=== PATIENT | male | born 1990 | race Caucasian/White ===

== ENCOUNTER 2024-03-16 17:03 | Inpatient (IN) ==
[2024-03-16] MEDS: MoRPHine SULFATE 4 MG/ML 1 ML CARP\\VIAL IV STA (17:40)
--- NOTE | 2024-03-16 17:47 | Emergency Department Note ---
History of Present Illness General Chief complaint: Back Injury/Pain Stated complaint: BACK SPASMS Time Seen by Provider: 03/16/24 17:19 History of Present Illness Maximum Pain Intensity: 9 This is a 33-year-old male that presents to the emergency department via private vehicle with complaints of "back pain". The patient notes that he was diagnosed with degenerative disc disease about a year ago. As of this year, is now following with [facility] receiving steroid injections in the spine. First of which was in October and the last of which was late this past month on March 07. Patient states that the first round in October seem to help the pain quite well however as of recent the later injections did not help. He notes ongoing and rather debilitating pain now. He notes trouble getting in and out of vehicles and certain position changes. He notes that last evening he did have a sensation of warm/hot followed by sweaty and then felt ill and vomited. This is unusual and he notes no history of similar. The patient did have ibuprofen prior to arrival. No lower extremity weakness, bowel or bladder incontinence, numbness or tingling in genital region. Home Medications Medication Instructions Recorded Confirmed Type acetaminophen 500 mg tablet 1,000 mg PO Q6H PRN Pain 03/16/24 03/16/24 History (Acetaminophen Extra Strength) celecoxib 100 mg capsule 100 mg PO BID PRN Pain 03/16/24 03/16/24 History Allergies Allergy/AdvReac Type Severity Reaction Status Date / Time Sulfa (Sulfonamide Allergy Intermediate Itching Verified 03/16/24 19:11 Antibiotics) baclofen AdvReac Severe Anxiety Verified 03/16/24 19:11 diclofenac AdvReac Severe Anxiety Verified 03/16/24 19:11 Past Med/Surg History Problem List (Updated 03/17/24 @ 01:06 by Jayy Currie PA-C) Abnormal MRI, lumbar spine (Acute) Leukocytosis (Acute) Low back pain (Acute) Severe low back pain Social History Smoking Status: Former smoker Smoking End Date: 2010; Hx Alcohol Use: No Hx Substance Use: Yes (marijuana for >15 years, has medical card per pt) Preferred Language: Ethiopian Communication Ability: Effective Service Provider Required: No Beliefs That Will Affect Care: None Current Living Situation: Spouse Other Information That Helps Us Care for You: No Feels Safe at Home: Yes Safety Concerns: Feels Safe At This Time Assistive Devices: Cane Review of Systems A total of 10 systems reviewed and were otherwise negative Physical Exam Vital Signs Vital Signs - 24 hr 03/16/24 17:12 03/16/24 20:45 03/16/24 21:48 Temperature 36.9 C Temperature Source Temporal Artery Scan Pulse Rate 90 Pulse Rate [Radial] 70 Respiratory Rate 18 16 Respiratory Effort / Characteristics Non-Labored Spontaneous Respiratory Depth Normal Blood Pressure 134/80 Blood Pressure [Left Arm] 123/82 Blood Pressure Mean 98 Blood Pressure Mean [Left Arm] 95 Blood Pressure Position Sitting Pulse Oximetry 95 97 97 Oxygen Delivery Method Room Air Room Air Sepsis Recent Fever Within 48 Hours No Sepsis New/Unexplained Change in Mental Status N/A Sepsis Action Taken by Nursing No Action Required VITAL SIGNS - Vital signs and nursing notes were reviewed. Stable and afebrile. GENERAL -33-year-old male appearing his stated age who is in no acute distress. Communicates well with provider and answers questions appropriately. SKIN - Without rashes. Skin overlying the back is unremarkable. No erythema or edema. HEAD - NC/AT. EYES - PERRL with EOMI bilaterally. Sclera anicteric. EARS - No deformities of external structures noted on gross examination bilaterally. NOSE - Midline and without cyanosis. No epistaxis or purulent drainage noted. MOUTH/OROPHARYNX - Without perioral cyanosis. NECK - Neck with FROM. No nuchal rigidity. LUNGS - CTA CARDIAC - RRR ABDOMEN - Abdominal contour normal without pulsations or visible masses. BS normoactive all four quadrants. No tenderness, palpable masses, hepatosplenomegaly, or ascites noted. EXTREMITIES - No clubbing or peripheral cyanosis. +5/5 strength noted in UE/LE bilaterally. NEUROLOGIC - Cranial nerves II through XII grossly intact. Patellar reflexes within normal limits bilaterally. PSYCH -alert, oriented and pleasant on exam. Course Administered Medications Discontinued Medications Gadobutrol (Gadobutrol 65ml Vial) 7.9 ml IV ONCE ONE Stop: 03/16/24 18:41 Last Admin: 03/16/24 18:41 Dose: 7.9 ml Documented By: СЕРГЕЙ Hydromorphone HCl (Hydromorphone Inj 0.5 Mg/0.5 Ml Syr) 0.5 mg IV NOW STA Stop: 03/16/24 22:47 Last Admin: 03/16/24 22:53 Dose: 0.5 mg Documented By: SHONA Vancomycin HCl 1,500 mg/ (Sodium Chloride) 530 mls @ 200 mls/hr IV NOW ONE Stop: 03/16/24 23:37 Last Admin: 03/16/24 22:47 Dose: 200 mls/hr Documented By: SHONA Ceftriaxone Sodium (Rocephin) 2,000 mg in 50 mls @ 100 mls/hr IV NOW STA Stop: 03/16/24 21:28 Last Infusion: 03/16/24 22:48 Dose: Infused Documented By: Admin: 03/16/24 22:27 Dose: 100 mls/hr Documented By: SHONA Sodium Chloride (Nss) 1,000 mls @ 999 mls/hr IV .Q1H1M ONE Stop: 03/16/24 22:05 Last Infusion: 03/17/24 00:00 Dose: Infused Documented By: Admin: 03/16/24 22:27 Dose: 999 mls/hr Documented By: SHONA Lidocaine (Lidocaine 5% 1 Patch) 1 patch TD NOW STA Stop: 03/16/24 19:40 Last Admin: 03/16/24 19:46 Dose: 1 patch Documented By: SHONA Morphine Sulfate (Morphine Sulfate 4 Mg/Ml 1 Ml Carp\\Vial) 4 mg IV NOW STA Stop: 03/16/24 17:34 Last Admin: 03/16/24 17:40 Dose: 4 mg Documented By: LAMONT Morphine Sulfate (Morphine Sulfate 2 Mg/Ml Carp) 2 mg IV NOW STA Stop: 03/16/24 19:40 Last Admin: 03/16/24 19:46 Dose: 2 mg Documented By: SHONA Medical Decision Making Laboratory Data 03/16/24 17:39 03/16/24 17:39 Lab Results 03/16/24 03/16/24 03/16/24 Range/Units 17:39 19:39 20:25 WBC 11.51 H (4.8-10.8) K/ul RBC 4.71 (4.70-6.10) M/uL Hgb 14.2 (14.0-18.0) g/dl Hct 42.5 (42.0-52.0) % MCV 90.2 (80.0-100.0) fL MCH 30.1 (25.0-34.0) pg MCHC 33.4 (32.0-36.0) g/dL RDW Std Deviation 40.8 (36.4-46.3) fL RDW Coeff of Roberto 12.3 (11.5-14.5) % Plt Count 212 (130-400) K/uL MPV 10.4 (9.4-12.4) fL Immature Gran % (Auto) 0.3 % Neut % (Auto) 76.7 % Lymph % (Auto) 16.2 % [place] % (Auto) 6.1 % Eos % (Auto) 0.4 % Baso % (Auto) 0.3 % Neut # (Auto) 8.81 H (1.40-6.50) K/uL Lymph # (Auto) 1.87 (1.20-3.40) K/uL [place] # (Auto) 0.70 H (0.11-0.59) K/uL Eos # (Auto) 0.05 (0.00-0.50) K/uL Baso # (Auto) 0.04 (0.00-0.20) K/uL Immature Gran # (Auto) 0.04 (0.01-0.20) K/uL ESR 6 (0-15) mm/hr Sodium 136 (136-145) mmol/L Potassium 3.9 (3.5-5.1) mmol/L Chloride 103 (98-107) mmol/L Carbon Dioxide 26 (21-32) mmol/L Anion Gap 7 (3-11) BUN 15 (6-23) mg/dl Creatinine 0.88 (0.6-1.4) mg/dl Est Cr Clr Drug Dosing 129.8 ml/min eGFR 115.72 BUN/Creatinine Ratio 17.0 (10-20) Glucose 95 (70-99(Fasting)) mg/dl Lactate (0.4-2.0) mmol/L Calcium 9.6 (8.6-10.3) mg/dl Total Bilirubin 0.4 (0.2-1.0) mg/dl AST 18 (13-39) U/L ALT 22 (7-52) U/L Alkaline Phosphatase 53 (34-104) U/L C-Reactive Protein < 0.50 (0-0.5) mg/dl Total Protein 7.5 (6.0-8.3) gm/dl Albumin 4.8 (3.4-5.0) gm/dl Globulin 2.7 (2.5-4.0) gm/dl Albumin/Globulin Ratio 1.8 (0.9-2) Procalcitonin < 0.02 (0-0.5) ng/ml Urine Color Yellow Urine Appearance Clear (Clear) Urine pH 6.5 (4.5-7.5) Ur Specific Brenton 1.039 H (1.000-1.030) Urine Protein Negative (Negative) Urine Glucose (UA) Negative (Negative) Urine Ketones Negative (Negative) Urine Blood Negative (Negative) Urine Nitrite Negative (Negative) Urine Bilirubin Negative (Negative) Urine Urobilinogen Negative (Negative) Ur Leukocyte Esterase Negative (Negative) 03/16/24 Range/Units 21:35 WBC (4.8-10.8) K/ul RBC (4.70-6.10) M/uL Hgb (14.0-18.0) g/dl Hct (42.0-52.0) % MCV (80.0-100.0) fL MCH (25.0-34.0) pg MCHC (32.0-36.0) g/dL RDW Std Deviation (36.4-46.3) fL RDW Coeff of Roberto (11.5-14.5) % Plt Count (130-400) K/uL MPV (9.4-12.4) fL Immature Gran % (Auto) % Neut % (Auto) % Lymph % (Auto) % [place] % (Auto) % Eos % (Auto) % Baso % (Auto) % Neut # (Auto) (1.40-6.50) K/uL Lymph # (Auto) (1.20-3.40) K/uL [place] # (Auto) (0.11-0.59) K/uL Eos # (Auto) (0.00-0.50) K/uL Baso # (Auto) (0.00-0.20) K/uL Immature Gran # (Auto) (0.01-0.20) K/uL ESR (0-15) mm/hr Sodium (136-145) mmol/L Potassium (3.5-5.1) mmol/L Chloride (98-107) mmol/L Carbon Dioxide (21-32) mmol/L Anion Gap (3-11) BUN (6-23) mg/dl Creatinine (0.6-1.4) mg/dl Est Cr Clr Drug Dosing ml/min eGFR BUN/Creatinine Ratio (10-20) Glucose (70-99(Fasting)) mg/dl Lactate 0.6 (0.4-2.0) mmol/L Calcium (8.6-10.3) mg/dl Total Bilirubin (0.2-1.0) mg/dl AST (13-39) U/L ALT (7-52) U/L Alkaline Phosphatase (34-104) U/L C-Reactive Protein (0-0.5) mg/dl Total Protein (6.0-8.3) gm/dl Albumin (3.4-5.0) gm/dl Globulin (2.5-4.0) gm/dl Albumin/Globulin Ratio (0.9-2) Procalcitonin (0-0.5) ng/ml Urine Color Urine Appearance (Clear) Urine pH (4.5-7.5) Ur Specific Brenton (1.000-1.030) Urine Protein (Negative) Urine Glucose (UA) (Negative) Urine Ketones (Negative) Urine Blood (Negative) Urine Nitrite (Negative) Urine Bilirubin (Negative) Urine Urobilinogen (Negative) Ur Leukocyte Esterase (Negative) Imaging Data Radiologist's Impression: Lumbar Spine MRI 03/16/24 17:33 EXAM: MR lumbar spine wo/w con CLINICAL HISTORY: steroid injection 03/07 pain worse afterwards 7.9 ml Gadavist TECHNIQUE: Different pulse sequences were performed in different planes for the lumbar spine without and with contrast. Images were sent through PACs for diagnostic interpretation.7.9 mL of Gadavist was injected intravenously without complications. COMPARISON: 12/24/[address] was reviewed FINDINGS: Preserved physiological lumbar lordosis. The scanned intervertebral discs show variable degrees of degeneration denoted by low signal intensity on T2 WI with a relative reduction of their heights. Marginal osteophytes are seen.Multiple radial, concentric, and transverse annular fissures are seen. Multiple Schmorl's nodes are seen at the vertebral end plates. Associating disc edema and wide zones of bone marrow edema at the L1 through L5 vertebrae with appreciable enhancement after Gd-DTPA injection. Findings suggest aseptic/septic spondylodiscitis. Detailed clinical, laboratory correlation and follow-up are recommended as appropriate. Maintained vertebral heights with intact vertebral bodies and neural arches. Level by Level analysis: T12-L1: There is no focal disc pathology, central canal stenosis, or neural foraminal stenosis. L1-L2: There is no focal disc pathology, central canal stenosis, or neural foraminal stenosis. L2-L3: There are 2.3 mm subarticular protrusions attenuating the subarticular recesses with impingement of the emerging L3 nerve roots. L3-L4: There are 2.5 mm subarticular protrusions attenuating the subarticular recesses with impingement of the emerging L4 nerve roots. Buckled ligamenta flava augment effects. L4-L5: There is a 2.4 mm annular bulge and 4.4 mm central herniation indenting the thecal sac, compromising the subarticular recesses and neural foramina with impingement of the emerging nerve roots. Buckled ligamenta flava and arthropathic facet joints augment effects. L5-S1: There is a 2.5 mm annular bulge and 4.2 mm central herniation indenting the thecal sac, compromising the subarticular recesses With mild bilateral neural foraminal stenosis with impingement of the emerging nerve roots. Buckled ligamenta flava and arthropathic facet joints augment effects. The lower dorsal spinal cord, conus medullaris, and cauda equina nerve roots are unremarkable. Paravertebral soft tissue is unremarkable. No developmental canal stenosis. IMPRESSION: 1. Spondylodegenerative lumbar disc disease. 2. Multiple Schmorl's nodes. 3. Modic I and II marrow changes are seen, with no other remarkable marrow changes. 4. Associating disc edema and wide zones of bone marrow edema at the L1 through L5 vertebrae with appreciable enhancement after Gd-DTPA injection. Findings suggest aseptic/septic spondylodiscitis. Detailed clinical, laboratory correlation and follow-up are recommended as appropriate. 5. L2-L3: There are 2.3 mm subarticular protrusions. 6. L3-L4: There are 2.5 mm subarticular protrusions. 7. L4-L5: There is a 2.4 mm annular bulge and 4.4 mm central herniation. 8. L5-S1: There is a 2.5 mm annular bulge and 4.2 mm central herniation. 9. Multilevel lumbar disc pathologies at the L2-L3, L3-L4, L4-L5 and L5-S1 levels with effects exerted upon the central spinal canal, subarticular recesses, and neural foramina with impingement of the emerging nerve roots. Buckled ligamenta flava and arthropathic facet joints augment effects. Electronically signed by Esmer Mari 03-16-2024 8:01 PM MDM Narrative Patient was seen and evaluated as above in room D05. Review was performed of triage nursing notes and vital signs. I did review pertinent previous visits and patient history. After obtaining a thorough history and physical examination the above work up was performed. Patient presents to us today for evaluation of low back pain. This has been ongoing. The patient did also experience yesterday sensation of fever/hot, was sweaty, then felt ill and vomited. He notes this is unusual. Options of care were discussed with the patient. IV access with established labs were drawn. There is leukocytosis 11.51. No anemia. Metabolic panel without emergent finding. Urinalysis does not suggest infection. MRI of the L- spine with and without contrast was performed to further evaluate the patient's low back pain now with infectious symptoms to include the hot flashes, sweatiness and vomiting in the setting of recent spinal injection. MRI is as above. I reviewed the findings with the patient and he was provided a copy of the report. #4 in the impression does note associated disc edema and wide zones of bone marrow edema at the L1-L5 vertebrae with appreciable enhancement after GDDTPA injection. Per the radiologist findings suggest a septic/septic spondylodiscitis. The radiologist does note detailed clinical, laboratory correlation and follow-up are recommended as appropriate. I discussed this finding and presentation with the on-call realty specialist, Dr. Baron. Recommendation was adding on inflammatory markers, blood cultures, IV antibiotics that are broad-spectrum and admission to the hospital. He will evaluate the patient. Laboratory studies were further added. Blood cultures pending at this time. Broad-spectrum IV antibiotics ordered. I discussed the case with the hospitalist service. Please refer to further documentation regarding his stay. GCS: 15 In the evaluation and treatment of this patient the following differential diagnoses were entertained: Fracture, dislocation, subluxation, contusion, discitis, osteomyelitis, epidural abscess, among others Impression & Plan Low back pain, Leukocytosis, Abnormal MRI, lumbar spine Discharge Plan Visit Data Chief Complaint: Back Injury/Pain Stated Complaint: BACK SPASMS ED Provider: Pb Sotelo ED Midlevel Provider: Bamat,Jayy W Discharge Problem: Low back pain, Leukocytosis, Abnormal MRI, lumbar spine Patient Disposition: Admitted As Inpatient Condition: Good Discharge Instructions Interventions: ED Discharge Assessment Last Done: 03/16/24 23:44
[2024-03-16 18:11] LABS: Basophils # (auto) 0.04 K/uL (0.00-0.20); Basophils % (auto) 0.3 %; Eosinophils # (auto) 0.05 K/uL (0.00-0.50); Eosinophils % (auto) 0.4 %; Hematocrit (blood only) 42.5 % (42.0-52.0); Hemoglobin 14.2 g/dl (14.0-18.0); Immature Granulocytes # (auto) 0.04 K/uL (0.01-0.20); Immature Granulocytes % (auto) 0.3 %; Lymphocytes # (auto) 1.87 K/uL (1.20-3.40); Lymphocytes % (auto) 16.2 %; Mean Corpuscular Hemoglobin 30.1 pg (25.0-34.0); Mean Corpuscular Hgb Conc 33.4 g/dL (32.0-36.0); Mean Corpuscular Volume 90.2 fL (80.0-100.0); Mean Platelet Volume 10.4 fL (9.4-12.4); Monocytes % (auto) 6.1 %; Neutrophils # (auto) 8.81 K/uL (1.40-6.50); Neutrophils % (auto) 76.7 %; Platelet Count 212 K/uL (130-400); RDW Coefficient of Variation 12.3 % (11.5-14.5); RDW Standard Deviation 40.8 fL (36.4-46.3); Red Blood Count 4.71 M/uL (4.70-6.10); White Blood Count 11.51 K/ul (4.8-10.8)
[2024-03-16 18:13] LABS: Albumin Level 4.8 gm/dl (3.4-5.0); Anion Gap 7 (3-11); Bilirubin,Total 0.4 mg/dl (0.2-1.0); Calcium 9.6 mg/dl (8.6-10.3); Carbon Dioxide 26 mmol/L (21-32); Chloride 103 mmol/L (98-107); Potassium 3.9 mmol/L (3.5-5.1); Sodium 136 mmol/L (136-145)
[2024-03-16 18:19] LABS: Alanine Aminotransferase 22 U/L (7-52); Albumin Globulin Ratio 1.8 (0.9-2); Alkaline Phosphatase 53 U/L (34-104); Aspartate Aminotransferase 18 U/L (13-39); Blood Urea Nitrogen 15 mg/dl (6-23); Creatinine Clr Calc Pharmacy 129.8 ml/min; Globulin 2.7 gm/dl (2.5-4.0); Glucose 95 mg/dl (70-99(Fasting)); Total Protein 7.5 gm/dl (6.0-8.3)
[2024-03-16] MEDS: GADOBUTROL 65ML VIAL IV ONE (18:41)
[2024-03-16] MEDS: LIDOCAINE 5% 1 PATCH TD STA (19:46)
[2024-03-16] MEDS: MoRPHine SULFATE 2 MG/ML CARP IV STA (19:46)
--- NOTE | 2024-03-16 20:02 | Magnetic Resonance Report ---
EXAM: MR lumbar spine wo/w con CLINICAL HISTORY: steroid injection 03/07 pain worse afterwards 7.9 ml Gadavist TECHNIQUE: Different pulse sequences were performed in different planes for the lumbar spine without and with contrast. Images were sent through PACs for diagnostic interpretation.7.9 mL of Gadavist was injected intravenously without complications. COMPARISON: 12/24/[address] was reviewed FINDINGS: Preserved physiological lumbar lordosis. The scanned intervertebral discs show variable degrees of degeneration denoted by low signal intensity on T2 WI with a relative reduction of their heights. Marginal osteophytes are seen.Multiple radial, concentric, and transverse annular fissures are seen. Multiple Schmorl's nodes are seen at the vertebral end plates. Associating disc edema and wide zones of bone marrow edema at the L1 through L5 vertebrae with appreciable enhancement after Gd-DTPA injection. Findings suggest aseptic/septic spondylodiscitis. Detailed clinical, laboratory correlation and follow-up are recommended as appropriate. Maintained vertebral heights with intact vertebral bodies and neural arches. Level by Level analysis: T12-L1: There is no focal disc pathology, central canal stenosis, or neural foraminal stenosis. L1-L2: There is no focal disc pathology, central canal stenosis, or neural foraminal stenosis. L2-L3: There are 2.3 mm subarticular protrusions attenuating the subarticular recesses with impingement of the emerging L3 nerve roots. L3-L4: There are 2.5 mm subarticular protrusions attenuating the subarticular recesses with impingement of the emerging L4 nerve roots. Buckled ligamenta flava augment effects. L4-L5: There is a 2.4 mm annular bulge and 4.4 mm central herniation indenting the thecal sac, compromising the subarticular recesses and neural foramina with impingement of the emerging nerve roots. Buckled ligamenta flava and arthropathic facet joints augment effects. L5-S1: There is a 2.5 mm annular bulge and 4.2 mm central herniation indenting the thecal sac, compromising the subarticular recesses With mild bilateral neural foraminal stenosis with impingement of the emerging nerve roots. Buckled ligamenta flava and arthropathic facet joints augment effects. The lower dorsal spinal cord, conus medullaris, and cauda equina nerve roots are unremarkable. Paravertebral soft tissue is unremarkable. No developmental canal stenosis. IMPRESSION: 1. Spondylodegenerative lumbar disc disease. 2. Multiple Schmorl's nodes. 3. Modic I and II marrow changes are seen, with no other remarkable marrow changes. 4. Associating disc edema and wide zones of bone marrow edema at the L1 through L5 vertebrae with appreciable enhancement after Gd-DTPA injection. Findings suggest aseptic/septic spondylodiscitis. Detailed clinical, laboratory correlation and follow-up are recommended as appropriate. 5. L2-L3: There are 2.3 mm subarticular protrusions. 6. L3-L4: There are 2.5 mm subarticular protrusions. 7. L4-L5: There is a 2.4 mm annular bulge and 4.4 mm central herniation. 8. L5-S1: There is a 2.5 mm annular bulge and 4.2 mm central herniation. 9. Multilevel lumbar disc pathologies at the L2-L3, L3-L4, L4-L5 and L5-S1 levels with effects exerted upon the central spinal canal, subarticular recesses, and neural foramina with impingement of the emerging nerve roots. Buckled ligamenta flava and arthropathic facet joints augment effects. Electronically signed by Esmer Mari 03-16-2024 8:01 PM
[2024-03-16 20:53] LABS: Appearance Urine Clear (Clear); Bilirubin Urine Negative (Negative); Blood Urine Negative (Negative); Color Urine Yellow; Glucose Urine UA Negative (Negative); Ketones Urine Negative (Negative); Leukocyte Esterase Urine Negative (Negative); Nitrite Urine Negative (Negative); Protein Urine Negative (Negative); Specific Gravity Urine 1.039 (1.000-1.030); Urobilinogen Urine Negative (Negative); pH Urine 6.5 (4.5-7.5)
[2024-03-16] MEDS ORDERED: VANCOMYCIN CONSULT ACTIVE PRN (20:59)
[2024-03-16] MEDS: SODIUM CHLORIDE 0.9% 1,000 ML IV ONE (22:27)
[2024-03-16] MEDS: cefTRIAXone SODIUM 2,000 MG/50 ML BAG IV STA (22:27)
[2024-03-16 22:33] LABS: C Reactive Protein < 0.50 mg/dl (0-0.5)
--- NOTE | 2024-03-16 22:46 | History & Physical Report ---
Date of Service March 16, 2024 Assessment & Plan (1) Severe low back pain: Plan: 33-year-old male with past medical history significant for chronic allergic rhinitis, plantar wart, degenerative disc disease, chronic back pain, general anxiety disorder, dermoid cyst, presents with severe back pain. Patient states having ongoing back pain for about a year. In October he had a steroid shot and it did seem to help. In January again he started to have low back pain and he had another steroid shot on March 01. But this time it did not help much. He is again having a lot of back pain. Not able to ambulate because of severe pain. Denies any bowel or bladder incontinence. Denies any numbness or weakness in the legs. Last night he felt hot and had episode of vomiting. After vomiting he felt better. Denies any headache. No dizziness. Currently no runny nose or sore throat. No cough. No chest pain or shortness of. Appetite is okay. No abdominal pain. Normal bowel and bladder movements. Hemodynamics are okay. 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 for further recommendations DVT prophylaxis SCDs for now Disposition Medical floor Full code History of Present Illness Chief Complaint: Severe back pain Primary Care Provider: Jose Lockett MD 33-year-old male with past medical history significant for chronic allergic rhinitis, plantar wart, degenerative disc disease, chronic back pain, general anxiety disorder, dermoid cyst, presents with severe back pain. Patient states having ongoing back pain for about a year. In October he had a steroid shot and it did seem to help. In January again he started to have low back pain and he had another steroid shot on March 01. But this time it did not help much. He is again having a lot of back pain. Not able to ambulate because of severe pain. Denies any bowel or bladder incontinence. Denies any numbness or weakness in the legs. Last night he felt hot and had episode of vomiting. After vomiting he felt better. Denies any headache. No dizziness. Currently no runny nose or sore throat. No cough. No chest pain or shortness of. Appetite is okay. No abdominal pain. Normal bowel and bladder movements. Hemodynamics are okay. Past medical history. As mentioned above Past surgical history. Lumbar spinal injection Family history. Quit smoking 1999. Medical marijuana as per [employer]. Alcohol occasional. Social history. Maternal grandfather had ALS. Paternal grandfather had colon cancer. Paternal grandmother had bipolar disorder. Lung cancer. Father has hypertension. Mother has hypertension. Allergies Allergy/AdvReac Type Severity Reaction Status Date / Time Sulfa (Sulfonamide Allergy Intermediate Itching Verified 03/16/24 19:11 Antibiotics) baclofen AdvReac Severe Anxiety Verified 03/16/24 19:11 diclofenac AdvReac Severe Anxiety Verified 03/16/24 19:11 Home Medications Medication Instructions Recorded Confirmed Type acetaminophen 500 mg tablet 1,000 mg PO Q6H PRN Pain 03/16/24 03/16/24 History (Acetaminophen Extra Strength) celecoxib 100 mg capsule 100 mg PO BID PRN Pain 03/16/24 03/16/24 History Past Med/Surg History Problem List (Updated 03/17/24 @ 01:06 by Jayy Currie PA-C) Abnormal MRI, lumbar spine (Acute) Leukocytosis (Acute) Low back pain (Acute) Severe low back pain Social History Smoking Status: Former smoker Smoking End Date: 2010; Hx Alcohol Use: No Hx Substance Use: Yes (marijuana for >15 years, has medical card per pt) Preferred Language: Jamaican Communication Ability: Effective 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 ENT- oropharynx clear Neck- supple, no JVD. Lungs- clear to auscultation no wheezing or crackles Heart- regular rate and rhythm; no murmur, no gallop. Abdomen- normal bowel sounds, soft, nontender, no distension Extremities- no pretibial edema, no erythema seen Neuro- alert, oriented ; PERRL, no facial palsy; no dysarthria; moves extremities Musculoskeletal right leg SLR test mildly positive Results & Data Results & Data Vital Signs (Past 12 Hours) Vital Signs Temp Pulse Pulse Resp BP BP Pulse Ox 03/16/24 21:48 70 16 123/82 97 03/16/24 20:45 97 03/16/24 17:12 36.9 C 90 18 134/80 95 O2 Del Method 03/16/24 21:48 03/16/24 20:45 Room Air 03/16/24 17:12 Room Air Diagnostic Findings Laboratory Results WBC 11.51 K/ul (4.8-10.8) H 03/16/24 17:39 RBC 4.71 M/uL (4.70-6.10) 03/16/24 17:39 Hgb 14.2 g/dl (14.0-18.0) 03/16/24 17:39 Hct 42.5 % (42.0-52.0) 03/16/24 17:39 MCV 90.2 fL (80.0-100.0) 03/16/24 17:39 MCH 30.1 pg (25.0-34.0) 03/16/24 17:39 MCHC 33.4 g/dL (32.0-36.0) 03/16/24 17:39 RDW Std Deviation 40.8 fL (36.4-46.3) 03/16/24 17:39 RDW Coeff of Roberto 12.3 % (11.5-14.5) 03/16/24 17:39 Plt Count 212 K/uL (130-400) 03/16/24 17:39 MPV 10.4 fL (9.4-12.4) 03/16/24 17:39 Immature Gran % (Auto) 0.3 % 03/16/24 17:39 Neut % (Auto) 76.7 % 03/16/24 17:39 Lymph % (Auto) 16.2 % 03/16/24 17:39 [place] % (Auto) 6.1 % 03/16/24 17:39 Eos % (Auto) 0.4 % 03/16/24 17:39 Baso % (Auto) 0.3 % 03/16/24 17:39 Neut # (Auto) 8.81 K/uL (1.40-6.50) H 03/16/24 17:39 Lymph # (Auto) 1.87 K/uL (1.20-3.40) 03/16/24 17:39 [place] # (Auto) 0.70 K/uL (0.11-0.59) H 03/16/24 17:39 Eos # (Auto) 0.05 K/uL (0.00-0.50) 03/16/24 17:39 Baso # (Auto) 0.04 K/uL (0.00-0.20) 03/16/24 17:39 Immature Gran # (Auto) 0.04 K/uL (0.01-0.20) 03/16/24 17:39 ESR 6 mm/hr (0-15) 03/16/24 17:39 Sodium 136 mmol/L (136-145) 03/16/24 17:39 Potassium 3.9 mmol/L (3.5-5.1) 03/16/24 17:39 Chloride 103 mmol/L (98-107) 03/16/24 17:39 Carbon Dioxide 26 mmol/L (21-32) 03/16/24 17:39 Anion Gap 7 (3-11) 03/16/24 17:39 BUN 15 mg/dl (6-23) 03/16/24 17:39 Creatinine 0.88 mg/dl (0.6-1.4) 03/16/24 17:39 Est Cr Clr Drug Dosing 129.8 ml/min 03/16/24 17:39 eGFR 115.72 03/16/24 17:39 BUN/Creatinine Ratio 17.0 (10-20) 03/16/24 17:39 Glucose 95 mg/dl (70-99(Fasting)) 03/16/24 17:39 Lactate 0.6 mmol/L (0.4-2.0) 03/16/24 21:35 Calcium 9.6 mg/dl (8.6-10.3) 03/16/24 17:39 Total Bilirubin 0.4 mg/dl (0.2-1.0) 03/16/24 17:39 AST 18 U/L (13-39) 03/16/24 17:39 ALT 22 U/L (7-52) 03/16/24 17:39 Alkaline Phosphatase 53 U/L (34-104) 03/16/24 17:39 C-Reactive Protein < 0.50 mg/dl (0-0.5) 03/16/24 17:39 Total Protein 7.5 gm/dl (6.0-8.3) 03/16/24 17:39 Albumin 4.8 gm/dl (3.4-5.0) 03/16/24 17:39 Globulin 2.7 gm/dl (2.5-4.0) 03/16/24 17:39 Albumin/Globulin Ratio 1.8 (0.9-2) 03/16/24 17:39 Procalcitonin < 0.02 ng/ml (0-0.5) 03/16/24 19:39 Urine Color Yellow 03/16/24 20:25 Urine Appearance Clear (Clear) 03/16/24 20:25 Urine pH 6.5 (4.5-7.5) 03/16/24 20:25 Ur Specific [place] 1.039 (1.000-1.030) H 03/16/24 20: Urine Protein Negative (Negative) 03/16/24 20: Urine Glucose (UA) Negative (Negative) 03/16/24 20: Urine Ketones Negative (Negative) 03/16/24 20: Urine Blood Negative (Negative) 03/16/24 20: Urine Nitrite Negative (Negative) 03/16/24 20: Urine Bilirubin Negative (Negative) 03/16/24 20: Urine Urobilinogen Negative (Negative) 03/16/24 20: Ur Leukocyte Esterase Negative (Negative) 03/16/24 20: Impressions Lumbar Spine MRI 03/16/24 17:33 EXAM: MR lumbar spine wo/w con CLINICAL HISTORY: steroid injection 03/07 pain worse afterwards 7.9 ml Gadavist TECHNIQUE: Different pulse sequences were performed in different planes for the lumbar spine without and with contrast. Images were sent through PACs for diagnostic interpretation.7.9 mL of Gadavist was injected intravenously without complications. COMPARISON: 12/24/[address] was reviewed FINDINGS: Preserved physiological lumbar lordosis. The scanned intervertebral discs show variable degrees of degeneration denoted by low signal intensity on T2 WI with a relative reduction of their heights. Marginal osteophytes are seen.Multiple radial, concentric, and transverse annular fissures are seen. Multiple Schmorl's nodes are seen at the vertebral end plates. Associating disc edema and wide zones of bone marrow edema at the L1 through L5 vertebrae with appreciable enhancement after Gd-DTPA injection. Findings suggest aseptic/septic spondylodiscitis. Detailed clinical, laboratory correlation and follow-up are recommended as appropriate. Maintained vertebral heights with intact vertebral bodies and neural arches. Level by Level analysis: T12-L1: There is no focal disc pathology, central canal stenosis, or neural foraminal stenosis. L1-L2: There is no focal disc pathology, central canal stenosis, or neural foraminal stenosis. L2-L3: There are 2.3 mm subarticular protrusions attenuating the subarticular recesses with impingement of the emerging L3 nerve roots. L3-L4: There are 2.5 mm subarticular protrusions attenuating the subarticular recesses with impingement of the emerging L4 nerve roots. Buckled ligamenta flava augment effects. L4-L5: There is a 2.4 mm annular bulge and 4.4 mm central herniation indenting the thecal sac, compromising the subarticular recesses and neural foramina with impingement of the emerging nerve roots. Buckled ligamenta flava and arthropathic facet joints augment effects. L5-S1: There is a 2.5 mm annular bulge and 4.2 mm central herniation indenting the thecal sac, compromising the subarticular recesses With mild bilateral neural foraminal stenosis with impingement of the emerging nerve roots. Buckled ligamenta flava and arthropathic facet joints augment effects. The lower dorsal spinal cord, conus medullaris, and cauda equina nerve roots are unremarkable. Paravertebral soft tissue is unremarkable. No developmental canal stenosis. IMPRESSION: 1. Spondylodegenerative lumbar disc disease. 2. Multiple Schmorl's nodes. 3. Modic I and II marrow changes are seen, with no other remarkable marrow changes. 4. Associating disc edema and wide zones of bone marrow edema at the L1 through L5 vertebrae with appreciable enhancement after Gd-DTPA injection. Findings suggest aseptic/septic spondylodiscitis. Detailed clinical, laboratory correlation and follow-up are recommended as appropriate. 5. L2-L3: There are 2.3 mm subarticular protrusions. 6. L3-L4: There are 2.5 mm subarticular protrusions. 7. L4-L5: There is a 2.4 mm annular bulge and 4.4 mm central herniation. 8. L5-S1: There is a 2.5 mm annular bulge and 4.2 mm central herniation. 9. Multilevel lumbar disc pathologies at the L2-L3, L3-L4, L4-L5 and L5-S1 levels with effects exerted upon the central spinal canal, subarticular recesses, and neural foramina with impingement of the emerging nerve roots. Buckled ligamenta flava and arthropathic facet joints augment effects. Electronically signed by Esmer Mari 03-16-2024 8:01 PM Code Status & VTE Plan VTE Prophylaxis Plan VTE Prophylaxis will be ordered: Yes
[2024-03-16] MEDS: VANCOMYCIN HCL 1,500 MG in SODIUM CHLORIDE 0.9% 500 ML IV ONE (22:47)
[2024-03-16] MEDS: HYDROmorphone INJ 0.5 MG/0.5 ML SYR IV STA (22:53)
[2024-03-17] MEDS ORDERED: HYDROmorphone INJ 0.5 MG/0.5 ML SYR IV PRN (00:16)
[2024-03-17] MEDS: HYDROmorphone INJ 0.5 MG/0.5 ML SYR IV PRN (03:32)
[2024-03-17 06:34] LABS: Basophils # (auto) 0.04 K/uL (0.00-0.20); Basophils % (auto) 0.4 %; Eosinophils % (auto) 1.1 %; Hematocrit (blood only) 36.7 % (42.0-52.0); Hemoglobin 12.2 g/dl (14.0-18.0); Immature Granulocytes # (auto) 0.02 K/uL (0.01-0.20); Immature Granulocytes % (auto) 0.2 %; Lymphocytes # (auto) 2.59 K/uL (1.20-3.40); Lymphocytes % (auto) 28.4 %; Mean Corpuscular Hemoglobin 30.1 pg (25.0-34.0); Mean Corpuscular Hgb Conc 33.2 g/dL (32.0-36.0); Mean Corpuscular Volume 90.6 fL (80.0-100.0); Mean Platelet Volume 10.1 fL (9.4-12.4); Monocytes # (auto) 0.73 K/uL (0.11-0.59); Neutrophils # (auto) 5.64 K/uL (1.40-6.50); Neutrophils % (auto) 61.9 %; Platelet Count 190 K/uL (130-400); RDW Coefficient of Variation 12.5 % (11.5-14.5); RDW Standard Deviation 41.4 fL (36.4-46.3); Red Blood Count 4.05 M/uL (4.70-6.10); White Blood Count 9.12 K/ul (4.8-10.8)
[2024-03-17 06:47] LABS: BUN Creatinine Ratio 17.8 (10-20); Calcium 8.8 mg/dl (8.6-10.3); Creatinine Clr Calc Pharmacy 156.5 ml/min; Magnesium 1.7 mg/dl (1.7-2.4); Potassium 4.1 mmol/L (3.5-5.1)
[2024-03-17] MEDS: VANCOMYCIN HCL 1,750 MG in SODIUM CHLORIDE 0.9% 500 ML IV SCH (09:10)
[2024-03-17] MEDS: ACETAMINOPHEN 325 MG TAB PO PRN (09:30)
--- NOTE | 2024-03-17 09:52 | Hospitalist Progress Note ---
Date of Service March 17, 2024 Assessment & Plan (1) Severe low back pain: Plan: This appears to be stable for due to discitis of infectious origin, continue with empirical vancomycin and ceftriaxone that was started in the emergency room by admitting physician, will consult infectious disease and await input by orthospine. Will adjust pain control., patient was started on Ultram 50 mg every 6 hours patient reportedly responded well to Ultram. Dilaudid will be used as needed. Plan Await input by orthospine, consult infectious disease for long-term choice and course of antibiotic treatment. Admission and Anticipated Discharge Date Admission Date: March 16, 2024 Subjective Patient is a 33-year-old gentleman with history of chronic back pain and anxiety and allergic rhinitis, due to his ongoing pain, on March 01, he received a steroid injection to his back, I do not know the details and location of it. Over the past week or so he started developing worse pain along with difficulty ambulating and eventually decided to come to the hospital Patient was seen and examined, he feels that the pain medication is not adequate that she is receiving. MRI showed some element of L1-L5 discitis, orthospine is on consult. Physical Exam Physical Exam: VITALS: Reviewed. WEIGHT/BMI reviewed. GEN: Healthy appearing, well-developed, NAD. PSYCH: Good Judgment. AOx3. Normal memory, mood, and affect. CV: RRR, no m/r/g. LUNGS: CTAB, no w/r/c. ABD: Soft, NT/ND, NBS, no masses or organomegaly. : N/A SKIN: Warm, well perfused. No skin rashes or abnormal lesions. MSK: No deformities, gait was not assessed, extremities did not appear to be atrophic. Results & Data Results & Data Vital Signs (Past 12 Hours) Vital Signs Temp Pulse Pulse Pulse Resp BP BP 03/17/24 07:14 36.3 C L 77 16 03/17/24 00:18 36.5 C 100 H 16 140/83 03/16/24 23:44 65 18 133/77 03/16/24 21:48 70 16 123/82 BP Pulse Ox O2 Del Method 03/17/24 07:14 106/67 97 Room Air 03/17/24 00:18 98 Room Air 03/16/24 23:44 97 Room Air 03/16/24 21:48 97 Laboratory Results Laboratory Results - last 24 hr 03/16/24 03/16/24 03/16/24 17:39 19:39 20:25 WBC 11.51 H RBC 4.71 Hgb 14.2 Hct 42.5 MCV 90.2 MCH 30.1 MCHC 33.4 RDW Std Deviation 40.8 RDW Coeff of Roberto 12.3 Plt Count 212 MPV 10.4 Immature Gran % (Auto) 0.3 Neut % (Auto) 76.7 Lymph % (Auto) 16.2 [place] % (Auto) 6.1 Eos % (Auto) 0.4 Baso % (Auto) 0.3 Neut # (Auto) 8.81 H Lymph # (Auto) 1.87 [place] # (Auto) 0.70 H Eos # (Auto) 0.05 Baso # (Auto) 0.04 Immature Gran # (Auto) 0.04 ESR 6 Sodium 136 Potassium 3.9 Chloride 103 Carbon Dioxide 26 Anion Gap 7 BUN 15 Creatinine 0.88 Est Cr Clr Drug Dosing 129.8 eGFR 115.72 BUN/Creatinine Ratio 17.0 Glucose 95 Lactate Calcium 9.6 Magnesium Total Bilirubin 0.4 AST 18 ALT 22 Alkaline Phosphatase 53 C-Reactive Protein < 0.50 Total Protein 7.5 Albumin 4.8 Globulin 2.7 Albumin/Globulin Ratio 1.8 Procalcitonin < 0.02 Urine Color Yellow Urine Appearance Clear Urine pH 6.5 Ur Specific [place] 1.039 H Urine Protein Negative Urine Glucose (UA) Negative Urine Ketones Negative Urine Blood Negative Urine Nitrite Negative Urine Bilirubin Negative Urine Urobilinogen Negative Ur Leukocyte Esterase Negative 03/16/24 03/17/24 21:35 06:14 WBC 9.12 RBC 4.05 L Hgb 12.2 L Hct 36.7 L MCV 90.6 MCH 30.1 MCHC 33.2 RDW Std Deviation 41.4 RDW Coeff of Roberto 12.5 Plt Count 190 MPV 10.1 Immature Gran % (Auto) 0.2 Neut % (Auto) 61.9 Lymph % (Auto) 28.4 [place] % (Auto) 8.0 Eos % (Auto) 1.1 Baso % (Auto) 0.4 Neut # (Auto) 5.64 Lymph # (Auto) 2.59 [place] # (Auto) 0.73 H Eos # (Auto) 0.10 Baso # (Auto) 0.04 Immature Gran # (Auto) 0.02 ESR Sodium 138 Potassium 4.1 Chloride 106 Carbon Dioxide 27 Anion Gap 5 BUN 13 Creatinine 0.73 Est Cr Clr Drug Dosing 156.5 eGFR 122.44 BUN/Creatinine Ratio 17.8 Glucose 94 Lactate 0.6 Calcium 8.8 Magnesium 1.7 Total Bilirubin AST ALT Alkaline Phosphatase C-Reactive Protein Total Protein Albumin Globulin Albumin/Globulin Ratio Procalcitonin Urine Color Urine Appearance Urine pH Ur Specific [place] Urine Protein Urine Glucose (UA) Urine Ketones Urine Blood Urine Nitrite Urine Bilirubin Urine Urobilinogen Ur Leukocyte Esterase Diagnostic Findings Lumbar Spine MRI 03/16/24 17:33 EXAM: MR lumbar spine wo/w con CLINICAL HISTORY: steroid injection 03/07 pain worse afterwards 7.9 ml Gadavist TECHNIQUE: Different pulse sequences were performed in different planes for the lumbar spine without and with contrast. Images were sent through PACs for diagnostic interpretation.7.9 mL of Gadavist was injected intravenously without complications. COMPARISON: 12/24/[address] was reviewed FINDINGS: Preserved physiological lumbar lordosis. The scanned intervertebral discs show variable degrees of degeneration denoted by low signal intensity on T2 [place] with a relative reduction of their heights. Marginal osteophytes are seen.Multiple radial, concentric, and transverse annular fissures are seen. Multiple Schmorl's nodes are seen at the vertebral end plates. Associating disc edema and wide zones of bone marrow edema at the L1 through L5 vertebrae with appreciable enhancement after Gd-DTPA injection. Findings suggest aseptic/septic spondylodiscitis. Detailed clinical, laboratory correlation and follow-up are recommended as appropriate. Maintained vertebral heights with intact vertebral bodies and neural arches. Level by Level analysis: T12-L1: There is no focal disc pathology, central canal stenosis, or neural foraminal stenosis. L1-L2: There is no focal disc pathology, central canal stenosis, or neural foraminal stenosis. L2-L3: There are 2.3 mm subarticular protrusions attenuating the subarticular recesses with impingement of the emerging L3 nerve roots. L3-L4: There are 2.5 mm subarticular protrusions attenuating the subarticular recesses with impingement of the emerging L4 nerve roots. Buckled ligamenta flava augment effects. L4-L5: There is a 2.4 mm annular bulge and 4.4 mm central herniation indenting the thecal sac, compromising the subarticular recesses and neural foramina with impingement of the emerging nerve roots. Buckled ligamenta flava and arthropathic facet joints augment effects. L5-S1: There is a 2.5 mm annular bulge and 4.2 mm central herniation indenting the thecal sac, compromising the subarticular recesses With mild bilateral neural foraminal stenosis with impingement of the emerging nerve roots. Buckled ligamenta flava and arthropathic facet joints augment effects. The lower dorsal spinal cord, conus medullaris, and cauda equina nerve roots are unremarkable. Paravertebral soft tissue is unremarkable. No developmental canal stenosis. IMPRESSION: 1. Spondylodegenerative lumbar disc disease. 2. Multiple Schmorl's nodes. 3. Modic I and II marrow changes are seen, with no other remarkable marrow changes. 4. Associating disc edema and wide zones of bone marrow edema at the L1 through L5 vertebrae with appreciable enhancement after Gd-DTPA injection. Findings suggest aseptic/septic spondylodiscitis. Detailed clinical, laboratory correlation and follow-up are recommended as appropriate. 5. L2-L3: There are 2.3 mm subarticular protrusions. 6. L3-L4: There are 2.5 mm subarticular protrusions. 7. L4-L5: There is a 2.4 mm annular bulge and 4.4 mm central herniation. 8. L5-S1: There is a 2.5 mm annular bulge and 4.2 mm central herniation. 9. Multilevel lumbar disc pathologies at the L2-L3, L3-L4, L4-L5 and L5-S1 levels with effects exerted upon the central spinal canal, subarticular recesses, and neural foramina with impingement of the emerging nerve roots. Buckled ligamenta flava and arthropathic facet joints augment effects. Electronically signed by Esmer Mari 03-16-2024 8:01 PM Medications Administered Current Inpatient Medications Acetaminophen (Acetaminophen 325 Mg Tab) 650 mg PO Q4H PRN PRN Reason: pain/fever Stop: 04/16/24 00:15 Last Admin: 03/17/24 09:30 Dose: 650 mg Hydromorphone HCl (Hydromorphone Inj 0.5 Mg/0.5 Ml Syr) 0.25 mg IV Q6H PRN PRN Reason: Moderate Pain (Scale 4, 5, 6) Stop: 03/31/24 00:15 Hydromorphone HCl (Hydromorphone Inj 0.5 Mg/0.5 Ml Syr) 0.5 mg IV Q6H PRN PRN Reason: Severe Pain (Scale 7, 8, 9,10) Stop: 03/31/24 00:15 Last Admin: 03/17/24 09:30 Dose: 0.5 mg Ceftriaxone Sodium (Rocephin) 2,000 mg in 50 mls @ 100 mls/hr IV Q24H SANIYA Stop: 04/28/24 20:59 Vancomycin HCl 1,750 mg/ (Sodium Chloride) 535 mls @ 200 mls/hr IV Q12H SANIYA Stop: 04/28/24 07:59 Last Admin: 03/17/24 09:10 Dose: 200 mls/hr Miscellaneous Information (Vancomycin Consult Active) 1 each N/A UD PRN PRN Reason: Consult Stop: 04/15/24 20:58 Polyethylene Glycol (Polyethylene (Miralax) 17 Gm Pack) 17 gm PO DAILY PRN PRN Reason: Constipation Stop: 04/16/24 00:15
--- NOTE | 2024-03-17 10:05 | Pharmacy Report ---
Pharmacy PK ABX Note - Date of Service March 17, 2024 - Assessment and Plan Assessment 33 year old M receiving Vancomycin and Ceftriaxone for treatment of discitis. * Day #1 of antimicrobial therapy. * Blood cultures pending. * Renal fxn improving. White count improved. Procal and lactate negative. Plan Vancomycin * Loading dose: 1500 mg IV x 1 * Maintenance dose: 1750 mg IV every 12 hours * Regimen is predicted to achieve target AUC/BART of 400-600 mg/L.hr * Random level ordered for: 03/18/24 Pharmacy will continue to follow and will adjust dose/frequency as necessary. Thank you. Pharmacy has transitioned to AUC monitoring for vancomycin. AUC/BART is the preferred PK/PD target and is associated with decreased risk of nephrotoxicity compared to traditional trough targets.
[2024-03-17] MEDS: traMADol HCL 50 MG TABLET PO SCH (11:30)
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
[2024-03-17] MEDS: ONDANSETRON INJ 2 MG/ML 2 ML VIAL IV PRN (14:47)
[2024-03-17] MEDS: LIDOCAINE 5% 1 PATCH TD STA (17:11)
[2024-03-17] MEDS: cefTRIAXone SODIUM 2,000 MG/50 ML BAG IV SCH (20:55)
[2024-03-18] MEDS: HYDROmorphone INJ 0.5 MG/0.5 ML SYR IV STA (00:37)
[2024-03-18 06:03] LABS: Creatinine Clr Calc Pharmacy 154.4 ml/min
[2024-03-18] MEDS: diphenhydrAMINE Capsule 25 MG CAP PO ONE (07:24)
[2024-03-18] MEDS: VANCOMYCIN LEVEL ONE (07:46)
[2024-03-18] MEDS: POLYETHYLENE (MIRALAX) 17 GM PACK PO PRN (08:23)
--- NOTE | 2024-03-18 09:32 | Pharmacy Report ---
Pharmacy PK ABX Note - Date of Service March 18, 2024 - Assessment and Plan Assessment 33 year old M receiving Vancomycin and Ceftriaxone for treatment of discitis. * Day #3 of antimicrobial therapy. * Blood cultures with no growth to date. * Renal fxn stable. White count improved. Procal and lactate negative. * Awaiting ortho input for possible surgical intervention. Plan Vancomycin * Current regimen: 1750 mg IV every 12 hours * Random level obtained 03/18/24 resulted as 12.7 mcg/mL. This is predicted to achieve target AUC/BART of 400-600 mg/L.hr * Predicted AUC at steady state: 482 mg/L.hr * Continue 1750 mg IV every 12 hours * Repeat random level ordered for: 03/20/24 Pharmacy will continue to follow and will adjust dose/frequency as necessary. Thank you. Pharmacy has transitioned to AUC monitoring for vancomycin. AUC/BART is the preferred PK/PD target and is associated with decreased risk of nephrotoxicity compared to traditional trough targets.
--- NOTE | 2024-03-18 09:49 | Hospitalist Progress Note ---
Date of Service March 18, 2024 Assessment & Plan (1) Severe low back pain: Plan: This appears to be stable for due to discitis of infectious origin, continue with empirical vancomycin and ceftriaxone, await ID consult tomorrow, in regard to pain medication, will continue with Ultram 50 mg every 6 hours scheduled along with IV Dilaudid as needed, I have added cyclobenzaprine 10 mg 3 times daily as well. Orthospine recommended holding on further recommendation until his previous MRI which apparently was done at [facility] in September 2023 is reviewed. Plan Continue to adjust pain control, await further input by infectious disease as well as orthospine. Admission and Anticipated Discharge Date Admission Date: March 16, 2024 Subjective Patient is a 33-year-old gentleman with history of chronic back pain and anxiety and allergic rhinitis, due to his ongoing pain, on March 01, he received a steroid injection to his back, I do not know the details and location of it. Over the past week or so he started developing worse pain along with difficulty ambulating and eventually decided to come to the hospital, his MRI showed some element of L1-L5 discitis, patient was seen by orthopedics. Patient was seen and examined today, will continue to titrate and adjust his analgesic regimen, patient was seen by orthopedics and they would like to review another previous MRI that patient had in September 2023 prior to making any further recommendation. I contacted and consulted infectious disease who will see the patient tomorrow. Continue with current regimen of vancomycin and ceftriaxone. Physical Exam Physical Exam: VITALS: Reviewed. WEIGHT/BMI reviewed. GEN: Healthy appearing, well-developed, NAD. CV: RRR, no m/r/g. LUNGS: CTAB, no w/r/c. ABD: Soft, NT/ND, NBS, no masses or organomegaly. Results & Data Results & Data Vital Signs (Past 12 Hours) Vital Signs Temp Pulse Resp BP Pulse Ox O2 Del Method 03/18/24 07:14 36.6 C 72 16 105/66 97 Room Air 03/18/24 01:35 36.3 C L 69 20 120/77 98 Room Air Laboratory Results Laboratory Results - last 24 hr 03/18/24 05:29 Creatinine 0.74 Est Cr Clr Drug Dosing 154.4 eGFR 121.93 Random Vancomycin 12.7 Medications Administered Current Inpatient Medications Acetaminophen (Acetaminophen 325 Mg Tab) 650 mg PO Q4H PRN PRN Reason: pain/fever Stop: 04/16/24 00:15 Last Admin: 03/17/24 09:30 Dose: 650 mg Cyclobenzaprine HCl (Cyclobenzaprine Hcl 10 Mg Tab) 10 mg PO TID [facility] Stop: 04/17/24 13:59 Hydromorphone HCl (Hydromorphone Inj 0.5 Mg/0.5 Ml Syr) 0.25 mg IV Q6H PRN PRN Reason: Moderate Pain (Scale 4, 5, 6) Stop: 03/31/24 00:15 Hydromorphone HCl (Hydromorphone Inj 0.5 Mg/0.5 Ml Syr) 0.5 mg IV Q6H PRN PRN Reason: Severe Pain (Scale 7, 8, 9,10) Stop: 03/31/24 00:15 Last Admin: 03/18/24 09:39 Dose: 0.5 mg Ceftriaxone Sodium (Rocephin) 2,000 mg in 50 mls @ 100 mls/hr IV Q24H [facility] Stop: 04/28/24 20:59 Last Infusion: 03/18/24 00:32 Dose: Infused Vancomycin HCl 1,750 mg/ (Sodium Chloride) 535 mls @ 200 mls/hr IV Q12H [facility] Stop: 04/28/24 07:59 Last Admin: 03/18/24 08:26 Dose: 200 mls/hr Miscellaneous Information (Vancomycin Consult Active) 1 each N/A UD PRN PRN Reason: Consult Stop: 04/15/24 20:58 Ondansetron HCl (Ondansetron Inj 2 Mg/Ml 2 Ml Vial) 4 mg IV Q6H PRN PRN Reason: Nausea And Vomiting Stop: 04/16/24 13:49 Last Admin: 03/18/24 00:59 Dose: 4 mg Polyethylene Glycol (Polyethylene (Miralax) 17 Gm Pack) 17 gm PO DAILY PRN PRN Reason: Constipation Stop: 04/16/24 00:15 Last Admin: 03/18/24 08:23 Dose: 17 gm Tramadol HCl (Tramadol Hcl 50 Mg Tablet) 50 mg PO Q6 [facility] Stop: 04/16/24 11:59 Last Admin: 03/18/24 05:50 Dose: 50 mg
--- NOTE | 2024-03-18 10:46 | Orthopedic Progress Note ---
Date of Service March 18, 2024 Subjective Patient seen and examined, he notes that he was able to mobilize to the bathroom but still had significant pain and spasms when sitting. No recent fevers or chills, no lower extremity symptoms. Exam reveals an intact motor intact pain still indicated lower lumbosacral region. Afebrile vital signs stable. Impression: Continued intractable low back pain with history as noted in consultation. Plan: MRI images from the [facility] system from September were not transferred, these should be sent over tomorrow and at that time this to be reviewed in conjunction with the admission MRI for comparison, continue to monitor labs and make determination potentially as to whether or not there is an infectious process involving the spine versus discogenic low back pain. This was discussed with the patient, I will await the review the MRI [place], recommend a muscle relaxer on a as needed basis. Review of Systems All systems reviewed & are unremarkable except as noted in HPI & below. Physical Exam . Results & Data Results & Data Laboratory Results . Diagnostic Findings . PG Care Time/CCT Total # of Minutes Spent Total Time Spent with Patient: Total time spent is greater than 50% in coordination of care (as documented) at patient's floor/unit and/or counseling patient: Coding Level of Care Code 35676 SUB INP/OBS CARE 2/35MIN
[2024-03-18] MEDS: CYCLOBENZAPRINE HCL 10 MG TAB PO SCH (13:03)
--- OUTSIDE RECORDS SUMMARY | 2024-03-18 22:02 | External Medical Summary | Summary of Care ---
Author Name Unknown Organization [facility] Address 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 Name Role Phone Jose Lockett MD Primary Care Provider [phone] Reason for Visit * Reason Onset Date Comments Follow Up 10/24/2023 Encounter Details Date Type Department Care Team (Late st Contact Info) Description 10/24/2023 11:00 AM EDT Scheduled Telephone [facility], [facility] [address] [place] [address] [facility] Nurse Phone Call Interventional Pain [facility] [address] [place] [id number] Allergies Active Allergy Reactions Criticality Noted Date Comments Baclofen Diarrhea,Nausea/vomi ting, Tachycardia 2023 Diclofenac Nausea/vomiting,Unknown 2023 Mixed Grasses Low 05/31/2022 Sinus drainage Trazodone 03/11/2023 Severe sick feeling documented as of this encounter (statuses as of 12/27/2023) Medications Medication Sig Dispensed Refills Start Date End Date Status Bacitracin 500 UNIT/GM External Ointment Apply 0.5 g topically to affected area in the morning and 0.5 g at noon and 0.5 g before bedtime. As directed. 30 g 1 01/31/2023 Active ZyrTEC Allergy 10 MG Oral Capsule (Cetirizine HCl) Take 1 Capsule by mouth in the morning. Active Celecoxib 100 MG Oral Capsule (CeleBREX)Indicati ons:Spondylosis of lumbar region without myelopathy or radiculopathy,Weight Guesser danie bilateral low back pain without sciatica Take 1-2 capsules by mouth daily only as needed for pain. Take lowest dose necessary for pain relief. 60 Capsule 2 08/16/2023 Active Additional Information Patient not taking.Reported on 12/07/2023 documented as of this encounter (statuses as of 12/27/2023) Active Problems Problem Noted Date Diagnosed Date DDD (degenerative disc disease), lumbar 12/28/19 Dermoid cyst 08/10/2022 Plantar wart 08/10/2022 Overweight (BMI 25.0-29.9) 06/19/2022 Chronic back pain 06/19/2022 Chronic allergic rhinitis 05/31/2022 JUN (generalized anxiety disorder) 05/31/2022 documented as of this encounter (statuses as of 12/27/2023) Resolved Problems Problem Noted Date Diagnosed Date Resolved Date Sciatica of left side 05/31/20222022 documented as of this encounter (statuses as of 12/27/2023) Immunizations Name Administration Dates Next Due COVID-19 mRNA, LNP-s, No Pre serve, 2-Dose Series (Pfizer) 08/25/2020,08/04/2020 COVID-19, LNP-s, No Preserve , Rigo-sucrose, Ages 12+ (Pfizer) 03/31/2021 Hepatitis B, 0-19 yrs 11/28/1996 MMR - Measles/Mumps/Rubella Vaccine 06/02/2011,0 07/12/1994 OPV - Polio Virus Vaccine (Oral) 07/12/1994 TDAP (age 10 and older)(Boostrix) 09/28/2014, Varicella Vaccine (Chicken Pox) 06/02/2011 documented as of this encounter Social History Tobacco Use Types Packs/Day Years Used Date Smoking Tobacco: Former Cigarettes Q uit: 2010 Passive Smoke Exposure: Past Smokeless Tobacco: Never Alcohol Use Standard Drinks/Week Comments Yes 0 (1 standard drink = 0.6 oz pur e alcohol) occ PHQ-2 Answer Date Recorded PHQ Adult Total Score 2 03/07/2023 Hunger Vital Sign Answer Date Recorded Within the past 12 months, y ou worried that your food would run out before you got the money to buy more. Never true 12/27/19 23 Within the past 12 months, t he food you bought just didn't last and you didn't have money to get more. Never true 12/26/2022 Childcare Answer Date Recorded Do you feel overwhelmed with taking care of a child, family member or friend? No 12/26/2022 Does your family need help f inding childcare? (Household - for ages 0-17 years) Not on file 12/26/2022 Clothing Answer Date Recorded Have you been unable to get clothing when it was really needed? No 12/26/2022 Is your family able to get c lothes or diapers when needed? (Household - for ages 0-17 years) Not on file 12/26/2022 Personal Safety Answer Date Recorded Do you feel unsafe or have concerns for your saf ety? No 12/26/2022 Do you have concerns for you r family's safety? (Household - for ages 0-17 years) Not on file 12/26/2022 Utilities Answer Date Recorded Do you have trouble paying y our heating, water, or electric bill? No 12/26/2022 Is your family able to pay t he heat, water, or electric bill? (Household - for ages 0-17 years) Not on file 12/26/2022 Does your family have access to good internet? (Household - for ages 0-17 years) Not on file 12/26/2022 Employment Status Answer Date Recorded Are you unemployed or without regular income? No 12/26/2022 Does the household have a re gular source of income? (Household - for ages 0-17 years) Not on file 12/26/2022 Social Connections Answer Date Recorded How often do you feel lonely or isolated from those around you? Sometimes 12/26/2022 Financial Resource Strain Answer Date R ecorded Do you have any trouble payi ng for your medications, or do you think you might in the future? No 12/26/2022 Does your family have troubl e paying for medicine? (Household - for ages 0-17 years) Not on file 12/26/2022 Transportation Needs Answer Date Record ed READ ONLY Do you have troubl e getting a ride to medical visits or work? Never True 12/26/2022 Does your family have a hard time getting a ride to doctors visits? (Household - for ages 0-17 years) Not on file 12/26/2022 Has lack of transportation k ept you from medical appointments, meetings, work, or from getting things needed for daily living? Check all that apply. (Adult - for ages 18 years and over) Not on file 12/26/2022 Do you (or your family) have trouble finding or paying for a ride (transportation)? (Household - for ages 0-17 years) Not on file 12/26/2022 Housing Stability Answer Date Recorded Do you currently live in a s helter or have no steady place to sleep at night? No 12/26/2022 READ ONLY Do you think you a re at risk of becoming homeless? No 12/26/2022 Does your family worry about paying for your home or becoming homeless? (Household - for ages 0-17 years) Not on file 0 12/26/2022 Are you homeless or worried that you might be in the future? (Adult - for ages 18 years and over) Not on file Are you (or your family) benito eless or worried that you might be in the future? (Household - for ages 0-17 years) Not on file Food Insecurity Answer Date Recorded Do you need food for this week? No 12/26/2022 Are you able to get enough f ood for your family? (Household - for ages 0-17 years) Not on file 12/26/2022 Does your family need food t his week? (Household - for ages 0-17 years) Not on file 12/26/2022 Do you always have enough fo od for your family? (Household - for ages 0-17 years) Not on file 12/26/2022 Sex and Gender Information Value Date Recorded Sex Assigned at Male 08/17/2022 12:57 PM EDT Gender Identity Male 12/26/2022 9:32 AM EDT Sexual Orientation Straight 08/17/2022 12 :57 PM EDT Job Start Date Occupation Industry Not on file Not on file Not on file documented as of this encounter Miscellaneous Notes * Telephone Encounter - Lubna Doan LPN - 12/27/2023 10:18 AM EDT Pins and needles In area where he had injection, just flared up the other day, states it feels the same as prior to his last injection. Not radiating into buttocks/legs. * Telephone Encounter - Lauren Arzate OSA - 12/27/2023 9:01 AM EDT Patient called in and states that the pain has some back in the last 1-2 days in his lower back andhaving pins and needles. He is requesting another injection. * Telephone Encounter - Lubna Doan LPN - 10/24/2023 9:57 AM EDT Patient reports 90-100% improvement after L3/4 and L4/5 facet joint injections, bilateral, with local anesthetic and corticosteroid Has only had 2-3days of soreness. Will call as needed. documented in this encounter Plan of Treatment Health Maintenance Due Date Last Done Comments Hepatitis B Vaccine (2 of 3 - 3-dose series) 12/26/1996 11/28/1996 HIV Screening 2004 Hepatitis C Screening 07/01/2007 COVID-19 Vaccine ( - 2023-2 5 season) 2023 03/31/2021, 08/25/2020, 08/04/2020 Influenza Vaccine (FLU shot) (#1) 2023 Depression Screening 03/07/2024 03/07/2023 DTap/Tdap Vaccines (3 - Td o r Tdap) 09/28/2024 09/28/2014, 06/02/2011 HPV (Gardasil) Vaccine Aged Out No lo nger eligible based on patient's age to complete this topic MENINGOCOCCAL (MENACTRA/MENVEO) Aged Out No longer eligible b ased on patient's age to complete this topic Pneumococcal Vaccine: Pediatrics (0 to 5 Years) and At-Risk Patients (6 to 64 Years) Aged Out No longer eligible b ased on patient's age to complete this topic documented as of this encounter Medical Devices Not on filedocumented as of this encounter Care Teams Meat Pickler Relationship Specialty Start Date End Date Jose Lockett MD [address] [place] [id number] PCP - General Internal Medicine 05/31/22 documented as of this encounter
--- OUTSIDE RECORDS SUMMARY | 2024-03-18 22:02 | External Medical Summary | Summary of Care ---
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 [M47.816] Procedures L-/S-SPINE PARAVERTEBRAL FACET INJ,1 LEVEL L-/S-SPINE PARAVERTEBRL FACET INJ,2 LEVELS L-/S-SPINE PARAVERTEBRAL FACET INJ, 1 LEVEL L-/S-SPINE PARAVERTEBRAL FACET INJ, 2 LEVELS Georgi Casas DO [address] [place] [address] Phone: tel: fax: [facility], Operating Room [facility] [address] [place] [phone] Phone: tel: fax: Referral ID Status Reason Start Date Expiration Date Visits Re quested Visits Authorized [id number] Encounter Details Date Type Department Care Team (Latest Contact Info) Description 03/01/2024 11:38 AM EST - 03/01/2024 12:57 PM EST Hospital Encounter [facility], Operating Room [facility] [address] [place] [phone] Georgi Casas DO [address] [place] [address] Discharge Disposition: Home - Self Care Allergies Active Allergy Reactions Criticality Noted Date Comments Baclofen Diarrhea,Nausea/vomi ting, Tachycardia 2023 Diclofenac Nausea/vomiting,Unknown 2023 Mixed Grasses Low 05/31/2022 Sinus drainage Trazodone 03/11/2023 Severe sick feeling documented as of this encounter (statuses as of 03/02/2024) Medications Bacitracin 500 UNIT/GM External Ointment Apply 0.5 g topically to affected area in the morning and 0.5 g at noon and 0.5 g before bedtime. As directed. 30 g 1 3 Active ZyrTEC Allergy 10 MG Oral Capsule (Cetirizine HCl) Take 1 Capsule by mouth in the morning. Active Celecoxib 100 MG Oral Capsule (CeleBREX)Indic ations:Spondylo sis of lumbar region without myelopathy or radiculopathy,C hronic bilateral low back pain without sciatica Take 1-2 capsules by mouth daily only as needed for pain. Take lowest dose necessary for pain relief. 60 Capsule 2 4 Active Additional Information Patient not taking.Reported on 03/01/2024 documented as of this encounter (statuses as of 03/02/2024) Active Problems Problem Noted Date Diagnosed Date DDD (degenerative disc disease), lumbar 12/28/19 23 Dermoid cyst 08/10/2022 Plantar wart 08/10/2022 Overweight (BMI 25.0-29.9) 06/19/2022 Chronic back pain 06/19/2022 Chronic allergic rhinitis 05/31/2022 JUN (generalized anxiety disorder) 05/31/2022 documented as of this encounter (statuses as of 03/02/2024) Resolved Problems Problem Noted Date Diagnosed Date Resolved Date Sciatica of left side 05/31/20222022 documented as of this encounter (statuses as of 03/02/2024) Immunizations Name Administration Dates Next Due COVID-19 mRNA, LNP-s, No Pre serve, 2-Dose Series ([employer] 08/25/2020,08/04/2020 COVID-19, LNP-s, No Preserve , Rigo-sucrose, [...] y our heating, water, or electric bill? (Adult - for ages 18 years and over) Not on file 12/27/2023 Is your family able to pay t he heat, water, or electric bill? (Household - for ages 0-17 years) Not on file 12/27/2023 Does your family have access to good internet? (Household - for ages 0-17 years) Not on file 12/27/2023 Employment Status Answer Date Recorded Are you unemployed or without regular income? No 12/26/2022 Does the household have a re gular source of income? (Household - for ages 0-17 years) Not on file 12/26/2022 Social Connections Answer Date Recorded How often do you feel lonely or isolated from those around you? (Adult - for ages 18 years and over) Not on file 12/27/2023 Financial Resource Strain Answer Date R ecorded [...] Assigned at Male 08/17/2022 12:57 PM EDT Legal Sex Male 9:17 AM EST Gender Identity Male 12/26/2022 9:32 AM EDT Sexual Orientation Straight 08/17/2022 12 :57 PM EDT documented as of this encounter Last Filed Vital Signs Vital Sign Reading Time Taken Comments Blood Pressure 132/96 03/01/2024 12:45 PM EST Pulse 90 03/01/2024 12:45 PM EST Temperature 36.4 C (97.5 F) 03/01/2024 12:[address] Respiratory Rate 17 03/01/2024 12:45 PM EST Oxygen Saturation 95% 03/01/2024 12:45 PM EST Inhaled Oxygen Concentration - - Weight - - Height - - Body Mass Index - - documented in this encounter Discharge Instructions * Discharge Instr - AVS* Georgi Casas DO - 03/01/2024 11:46 AM EST [facility] [address] [place] [address] Discharge Date: 03/01/2024 You may call [facility] at [phone] during business hours. For after-hours emergencies call 911. Your attending physician at the time of your discharge was: Georgi Casas DO [address] [facility] [place] [address] The information below provides you with the instructions and the list of medications you need to betaking following discharge from the hospital. If you have any questions, please ask before leaving.Please carry this letter with you when you see your doctor in the clinic. Diet: Resume your normal diet If you are diabetic, follow your blood sugars closely for next 2-3 days as they are likely to be elevated. If you are having difficulty controlling your blood sugars call your family doctor or the physician that treats your diabetes. Activity: Do not engage in strenuous activity today Resume your normal activities tomorrow Do not soak in water for 24 hours. No swimming, hot tub or bath but showering is allowed. Do not use heat on the injection site for 24 hours. If uncomfortable ice may be helpful. Some injections may make your arms or legs weak for a few hours. Be extremely careful when walking or changing positions that you do not fall. Have someone assist you for the next 6 hours. If weakness or numbness becomes progressive CALL IMMEDIATELY or GO TO THE NEAREST EMERGENCY ROOM Do not restart physical therapy or chiropractic manipulation until 48 hours after your injection Call : If weakness or numbness suddenly becomes worse or become progressive If the injection site becomes red, swollen, warm to the touch, begins to bleed or drain fluid, or is excessively painful. If you have any questions Medications: Resume all the medications you were taking prior to your injection. Resume your anticoagulants tomorrow unless otherwise instructed by your family physician, family resource specialist or the anticoagulation clinic. Additional Instructions: None Driving: You may resume driving in 12-24 hours if no weakness is noted . Date you may return to work or school: N/A Follow Up: Please make a follow-up telephone appointment with our nursing staff in 4-6 weeks. documented in this encounter Progress Notes * Georgi Casas DO - 03/01/2024 12:47 PM EST [address] [phone] OUTPATIENT SURGERY DISCHARGE SUMMARY NOTE Name: Jorge Espino Location: OR OS/OR Date: 03/01/2024 Time: 12:47 PM Surgery Date: 03/01/2024 Procedure: L-/S-SPINE PARAVERTEBRAL FACET INJ, 1 LEVEL, L-/S-SPINE PARAVERTEBRAL FACET INJ, 2 LEVELS Bilateral Bilateral Surgeon: Georgi Casas DO Discharge Diagnosis: lumbosacral spondylosis After examination of this patient, I have determined he is ready for discharge to home when the patient meets criteria. Discharge instructions were given to the patient. Georgi Casas DO [place] [facility], Operating Room [facility] [address] [place] [phone] documented in this encounter H&P Notes * Georgi Casas DO - 03/01/2024 11:41 AM EST Interventional Pain H&P Subjective: History of Present Illness: Jorge Espino is a 33 year old year-old male with a past medical history significant for lumbosacral spondylosis who is presenting for bilateral L3/4 and L4/5 facet joint injections to improve hispain and function. his pain is essentially unchanged since our last office visit with him. ASA 3 AW nml Review of Systems: A focused 12-pt ROS were of reviewed with the patient including difficulty with sleep, snoring, aspiration history, dysphagia, stomach pain, nausea and vomiting, severe headaches, confusion, open skin lesions or wounds, chest pain, shortness of breath, excessive thirst, somnolence, dysuria, incomplete bladder emptying, easy bruising, recent clotting problems or bleeding, depression or rushed thoughts unless noted previously. Review of patient's allergies indicates: Allergen Reactions Baclofen Diarrhea, Nausea/vomiting and Tachycardia Diclofenac Sodium [Diclofenac] Nausea/vomiting and Unknown Trazodone Severe sick feeling Mixed Grasses Sinus drainage Medications, Past Medical History, Past Surgical History reviewed and documented in Epic. See detailed report if needed. Pertinent Labs/Test Results: No results found for: "INR" No results found for: "CREATININE" No results found for: "HGBA1C", "[id number]" No results found for: "AMPHETAMINE", "BARBITURATES", "BENZODIAZEPINES", "BUPRENORPHINE", "METHADONE", "OPIATES", "OXYCODONE", "PHENCYCLIDINE", "CANNABINOIDS", "TOX SCREEN", "URINE", "TOX SCREEN-SERUM", "TOX SCREEN, URINE" Imaging: I personally reviewed the imaging and my findings were . DERM EXAM - DERM (IMAGES ONLY, NO REPORT) This is an imaging study not interpreted or resulted by a [facility] or [facility] contracted radiologist. Objective Physical Exam: Vital Signs: There were no vitals taken for this visit. There is no height or weight on file to calculate BMI. General: No apparent distress. Eyes: pupils equal and round, sclera white, pupils midsize. ENT: mucous membranes moist Resp: Non-labored breathing CV: Extremities warm and well-perfused. Psych: Oriented; affect warm, insight good. Skin: No rashes or lesions appreciated on exposed skin Neuromuscular Exam: Facet loading pos, TTT over lumbar spine Assessment: Jorge is a 33 year old year-old male with: Lumbosacral spondylosis Plan: The patient is undergoing bilateral L3/4 and L4/5 facet joint injections today to alleviate his pain and improve his function. The risks, benefits and alternatives to the procedure were reviewed at length and the patient was provided the opportunity to ask questions which were answered to their voiced understanding. Following this comprehensive discussion, the patient opted to proceed. The patient was consented to the procedure following this comprehensive conversation. Georgi Casas DO [place] [facility], Operating Room [address] [phone] documented in this encounter OR Notes * OR Surgeon - Georgi Casas DO - 03/01/2024 12:46 PM EST LUMBAR FACET JOINT INJECTION DATE: 03/01/2024 PHYSICIAN: Georgi Casas DO PREOPERATIVE DIAGNOSIS: Lumbar spondylosis with lumbar facet arthropathy POSTOPERATIVE DIAGNOSIS: Lumbar spondylosis with lumbar facet arthropathy PROCEDURE PERFORMED: L3/4 and L4/5 facet joint injections, bilateral, with local anesthetic and corticosteroid. Fluoroscopy for precise needle localization. ANESTHESIA: Local infiltration with lidocaine. MONITORS: Automatic blood pressure cuff and pulse oximetry There was no temporary administrative assistant, EBL or drains placed during this procedure. INDICATIONS: We had the pleasure of seeing Jorge Espino ([id number]) [facility]. Jorge Espino is a 33 year old year-old male who has a history of lumbar spondylosis with facet arthropathy. The patient is here today for facet joint injections. MEDICATIONS: No current facility-administered medications for this encounter. ALLERGIES: Review of patient's allergies indicates: Allergen Reactions Baclofen Diarrhea, Nausea/vomiting and Tachycardia Diclofenac Sodium [Diclofenac] Nausea/vomiting and Unknown Trazodone Severe sick feeling Mixed Grasses Sinus drainage REVIEW OF SYSTEMS: Negative for fever, chills, chest pain, SOB, bleeding abnormalities, nausea, vomiting, diarrhea, worsening edema, or new rashes. FOCUSED PHYSICAL EXAMINATION: The patient is awake, alert and oriented, and is in no acute distress. Vital signs are stable. The patient is afebrile. The rest of the PE is essentially unchanged from the patient's recent visit to our office. I explained the procedure to the patient including the risks, benefits and alternatives to the procedure. The risks discussed with the patient included but were not limited to: bleeding, infection, and damage to surrounding nerves, tissues, and organs, paralysis, increased pain, allergic reaction,blood pressure instability, seizures, heart block, headaches, increase in blood sugar, worsening ofglaucoma, blindness, manic episodes, mood instability, and . Alternatives to the procedure were also explained and include: do nothing, surgery, medications, and physical therapy. The patient verbalized understanding and was willing to proceed. PROCEDURE IN DETAIL: An informed consent was obtained. The patient was taken to the procedure room and was positively identified by the staff and the attending physician. The patient was positioned prone on the procedure bed. Vital signs were monitored as above and remained stable throughout the procedure. The skin was prepped and draped in the standard sterile fashion. A surgical pause (time-out) was performed and was agreed upon by the members of the team. A fluoroscopic view of the lumbar spine was obtained, and the area of interest was identified. The skin and subcutaneous tissues were anesthetized using 1% lidocaine and 25-gauge 1-1/2-inch needle. Under fluoroscopic guidance, a 22-gauge, 3.5-inch spinal needle was advanced into the L3/4 facet joint on the right side. Additional needles were placed at L4/5. The needle positions were verified inAP and lateral views. After negative aspiration for the CSF or blood, 1 ml of the injectate was injected into each joint. Total injectate was composed of 80mg triamcinolone and 2mL of 1% lidocaine. All needles were removed. The procedure was repeated in the same fashion on the contralateral side. The patient tolerated the procedure well. COMPLICATIONS: None. DISPOSITON: 1. Return to clinic in 1-2 months for follow-up evaluation, sooner as needed. 2. Resume activity as tolerated. 3. Patient can drive after 12-24 hours if no weakness noted. Georgi Casas DO OR OS, Operating Room [facility]P [address] [place] [phone] documented in this encounter Plan of Treatment Upcoming Encounters Date Type Department Care Team (Late st Contact Info) Description 04/05/2024 2:00 PM EST Scheduled Telephone Interventional Pain Center, [facility] [address] [place] [address] Nurse Jann Phone Call Interventional Pain [facility] [address] [place] [phone] Health Maintenance Due Date Last Done Comments Hepatitis B Vaccine (2 of 3 - 3-dose series) 12/26/1996 11/28/1996 HIV Screening 2004 Hepatitis C Screening 07/01/2007 COVID-19 Vaccine (4 - 2023-2 5 season) 2023 03/31/2021, 08/25/2020, [...] Not on filedocumented as of this encounter Procedures Procedure Name Priority Date/Time Associated Diagnosis Comments FLUORO INTERVENTIONAL PAIN PROCEDURE NONBILLABLE Routine 03/01/2024 12:45 PM EST documented in this encounter Results * FLUORO INTERVENTIONAL PAIN PROCEDURE NONBILLABLE (03/01/2024 12:45 PM EST) Narrative Scheduling, Silent - 03/01/2024 12:46 PM EST This procedure will not be read by a Radiologist. Please see operative note. us Georgi Casas DO RAD FLUOROSCOPY Final Result documented in this encounter Active and Recently Administered Medications Times are shown in EST. PRN Medication Order 02/28/2024 02/29/2024 03/01/2024 lidocaine 1 % 2 mL, Triamcinolone Acetonide 80 mg inj (CANCELED) ONCE PRN INTRA PROCEDURE, Starting on Karla 03/01/24 at 1240, Until Karla 03/01/24 at 1244, Intra-Op 1240 (Given - Provid er: Georgi Casas, DO - Comment: Back - divided betwen levels bilaterally) lidocaine 1 % 5 mL in sodium chloride 0.9 % 4 mL inj (CANCELED) ONCE PRN INTRA PROCEDURE, Starting on Karla 03/01/24 at 1239, Until Karla 03/01/24 at 1244, Intra-Op 1239 (Given - Provid er: Georgi Casas, DO - Comment: Back - divided betwen levels bilaterally) documented in this encounter Care Teams Senior Reservations Agent Relationship Specialty Start Date End Date Jose Lockett MD [address] [place] [address] PCP - General Internal Medicine 05/31/22 documented as of this encounter
--- OUTSIDE RECORDS SUMMARY | 2024-03-18 22:02 | External Medical Summary | Summary of Care ---
Author Name Unknown Organization [facility] Address [address] [facility] [place] [address] Phone [phone] Care Team Providers Care Salesperson Men'S Hats Name Role Phone Jose Lockett MD Primary Care Provider [phone] Reason for Visit * Reason Onset Date Comments Follow Up 10/24/2023 Encounter Details Date Type Department Care Team (Late st Contact Info) Description 10/24/2023 11:00 AM EDT Scheduled Telephone Interventional Pain Center, [facility] [address] [place] [address] [facility] Nurse Phone Call Interventional Pain [facility] [address] [place] [phone] Chronic bilateral low back pain without sciatica*; Spondylosis of lumbar region without myelopathy or radiculopathy; DDD (degenerative disc disease), lumbar Allergies Active Allergy Reactions Criticality Noted Date [...] ons:Spondylosis of lumbar region without myelopathy or radiculopathy,Shearing Machine Tender danie bilateral low back pain without sciatica [...] mRNA, LNP-s, No Pre serve, 2-Dose Series ([employer]) 08/25/2020,08/04/2020 COVID-19, LNP-s, No Preserve , Rigo-sucrose, Ages 12+ ([employer]) 03/31/2021 Hepatitis B, 0-19 yrs 11/28/1996 MMR [...] as of this encounter Miscellaneous Notes * Addendum Note - Vidhya Casas DO - 12/27/2023 4:28 PM EDTAddended by: VIDHYA CASAS on: 12/27/2023 04:28 PM Modules accepted: Orders * Telephone Encounter - Lubna Doan LPN [...] documented in this encounter Plan of Treatment Scheduled Orders Name Type Priority Associated Diagnoses Orde r Schedule L-/S-SPINE PARAVERTEBRAL FACET INJ,1 LEVEL Procedures Routine Spondylosis of lumbar region without myelopathy or radiculopathy Chronic bilateral low back pain without sciatica DDD (degenerative disc disease), lumbar Expected: 12/28/2023, Expires: 03/27/2024 L-/S-SPINE PARAVERTEBRL FACET INJ,2 LEVELS Procedures Routine Spondylosis of lumbar region without myelopathy or radiculopathy Chronic bilateral low back pain without sciatica DDD (degenerative disc disease), lumbar Expected: 12/28/2023, Expires: 03/27/2024 Health Maintenance Due Date Last Done Comments [...] Not on filedocumented as of this encounter Visit Diagnoses Diagnosis Chronic bilateral low back pain without sciatica- Primary Spondylosis of lumbar region without myelopathy or radiculopathy Lumbosacral spondylosis without myelopathy DDD (degenerative disc disease), lumbar Degeneration of lumbar or lumbosacral intervertebral disc documented in this encounter Care Teams Salesperson Men'S Hats Relationship Specialty Start Date End Date Jose Lockett MD [address] [place] [address] PCP - General Internal Medicine 05/31/22 documented as of this encounter
--- OUTSIDE RECORDS SUMMARY | 2024-03-18 22:02 | External Medical Summary | Summary of Care ---
Author Name Unknown Organization [facility] Address [address] [facility] [place] [address] Phone [phone] Care Team Providers Care Community Development Manager Name Role Phone Jose Lockett MD Primary Care Provider Reason for Visit * Reason Onset Date Comments Advice 12/01/2023 Encounter Details Date Type Department Care Team (Late st Contact Info) Description 12/01/2023 Telephone [facility] [address] [place] [address] Jose Lockett MD [address] [place] [address] Advice Allergies Active Allergy Reactions Criticality Noted Date Comments Baclofen Diarrhea,Nausea/vomi ting, Tachycardia 2023 Diclofenac Nausea/vomiting,Unknown 2023 Mixed Grasses Low 05/31/2022 Sinus drainage Trazodone 03/11/2023 Severe sick feeling documented as of this encounter (statuses as of 03/01/2024) Medications Bacitracin 500 UNIT/GM External Ointment Apply [...] necessary for pain relief. 60 Capsule 2 Active Additional Information Patient not taking.Reported on 03/01/2024 documented as of this encounter (statuses as of 03/01/2024) Active Problems Problem Noted Date Diagnosed Date DDD (degenerative disc disease), lumbar 12/28/19 23 Dermoid cyst 08/10/2022 Plantar wart 08/10/2022 Overweight (BMI 25.0-29.9) 06/19/2022 Chronic back pain 06/19/2022 Chronic allergic rhinitis 05/31/2022 JUN (generalized anxiety disorder) 05/31/2022 documented as of this encounter (statuses as of 03/01/2024) Resolved Problems Problem Noted Date Diagnosed Date Resolved Date Sciatica of left side 05/31/20222022 documented as of this encounter (statuses as of 03/01/2024) Immunizations Name Administration Dates Next Due COVID-19 mRNA, LNP-s, No Pre serve, 2-Dose Series ([employer]) 08/25/2020,08/04/2020 COVID-19, LNP-s, No Preserve , Rigo-sucrose, [...] PM EDT documented as of this encounter Miscellaneous Notes * Telephone Encounter - Dinora Anderson OSA - 12/01/2023 10:51 AM EDT Patient calling stating he missed today's virtual appointment with Dr Lockett due to connection issue. Patient is requesting provider to call him. Patient can be contacted at [phone] documented in this encounter Plan of Treatment Upcoming Encounters Date Type Department Care Team (Late st Contact Info) Description 04/05/2024 2:00 PM EST Scheduled Telephone Interventional Pain Center, [facility] [address] [place] [address] [facility], Nurse Phone Call Interventional Pain [facility] [address] [place] [phone] Scheduled Procedures Name Priority Associated Diagnoses Date/Ti me L-/S-SPINE PARAVERTEBRAL FACET INJ, 1 LEVEL Spondylosis of lumbar region without myelopathy or radiculopathy 03/01/2024 12:21 PM EST L-/S-SPINE PARAVERTEBRAL FACET INJ, 2 LEVELS Spondylosis of lumbar region without myelopathy or radiculopathy 03/01/2024 12:21 PM EST Health Maintenance Due Date Last Done Comments [...] filedocumented as of this encounter Care Teams Community Development Manager Relationship Specialty Start Date End Date Jose Lockett MD [address] [place] [address] PCP - General Internal Medicine 05/31/22 documented as of this encounter
--- OUTSIDE RECORDS SUMMARY | 2024-03-18 22:02 | External Medical Summary | Summary of Care ---
Author Name Unknown Organization [facility] Address [address] [facility] [place] [address] Phone [phone] Care Team Providers Care Irrigation Specialist Name Role Phone Jose Lockett MD Primary Care Provider [phone] Reason for Visit * Reason Onset Date Comments Advice 03/14/2024 Encounter Details Date Type Department Care Team (Late st Contact Info) Description 03/14/2024 Telephone Access Center, [place] [address] [facility] *DO NOT REMOVE THIS DEPARTMENT* [place] [address] Services, Scheduling [address] [place] [address] Advice Allergies Active Allergy Reactions Criticality Noted Date Comments Baclofen Diarrhea,Nausea/vomi ting, Tachycardia 2023 Diclofenac Nausea/vomiting,Unknown 2023 Mixed Grasses Low 05/31/2022 Sinus drainage Trazodone 03/11/2023 Severe sick feeling documented as of this encounter (statuses as of 03/15/2024) Medications Bacitracin 500 UNIT/GM External Ointment Apply [...] as of this encounter (statuses as of 03/15/2024) Active Problems Problem Noted Date Diagnosed Date DDD (degenerative disc disease), lumbar 12/28/19 23 Dermoid cyst 08/10/2022 Plantar wart 08/10/2022 Overweight (BMI 25.0-29.9) 06/19/2022 Chronic back pain 06/19/2022 Chronic allergic rhinitis 05/31/2022 JUN (generalized anxiety disorder) 05/31/2022 documented as of this encounter (statuses as of 03/15/2024) Resolved Problems Problem Noted Date Diagnosed Date Resolved Date Sciatica of left side 05/31/20222022 documented as of this encounter (statuses as of 03/15/2024) Immunizations Name Administration Dates Next Due COVID-19 mRNA, LNP-s, No Pre serve, 2-Dose Series ([employer]) 08/25/2020,08/04/2020 COVID-19, LNP-s, No Preserve , Rigo-sucrose, Ages 12+ ([employer]) 03/31/2021 Hepatitis B, 0-19 yrs 11/28/1996 MMR [...] Telephone Encounter - Lubna Doan LPN - 03/15/2024 9:10 AM EST Pt scheduled. * Telephone Encounter - Lubna Doan LPN - 03/14/2024 9:13 AM EST S/p L3/4 and L4/5 facet joint injections, bilateral, with local anesthetic and corticosteroid on 03/01/24 Pain level 3-5/10 prior to injection, now pain level is 6-7/10, feels like the pain is below the injection site, b/l buttocks, L>R * Telephone Encounter - Lubna Doan LPN - 03/14/2024 9:06 AM EST Left message-need more info from patient. * Telephone Encounter - Frieda Souza OSA - 03/14/2024 8:18 AM EST Reason for patient's call: Pt calling to advise that since the shots that he received he is feelingunstable. Some days he needs to use his cane other day's he doesn't when he tries to bed with getting a little spasm between his lower hip and where the injection was placed. He is having day's where he is in extreme amount of pain and other day's when he's not. Pt asking what the next steps would be, should he be feeling worse during the winter months. It seems like he has had pain every day since he has gotten the injection. documented in this encounter Plan of Treatment Upcoming Encounters Date Type Department Care Team (Late st Contact Info) Description 03/19/2024 11:30 AM EST Office Visit [facility], [facility] [address] [facility] [place] [address] Kami Sparrow PA-C [address] [place] [address] 04/05/2024 2:00 PM EST Scheduled Telephone Inter[facility], [facility] [address] [place] [address] Jann, Nurse Phone Call [facility] [address] [place] [address] Health Maintenance Due Date Last Done Comments Hepatitis B Vaccine (2 of 3 - 3-dose series) 12/26/1996 11/28/1996 HIV Screening 2004 Hepatitis C Screening 07/01/2007 COVID-19 Vaccine (2023-2 5 season) 2023 03/31/2021, 08/25/2020, 08/04/2020 Influenza [...] filedocumented as of this encounter Care Teams Irrigation Specialist Relationship Specialty Start Date End Date Jose Lockett MD [address] [facility] [address] PCP - General Internal Medicine 05/31/22 documented as of this encounter
--- OUTSIDE RECORDS SUMMARY | 2024-03-18 22:02 | External Medical Summary | Summary of Care ---
Author Name Unknown Organization [facility] Address [address] [facility] [place] [address] Phone [phone] Care Team Providers Care Mortgage Originator Name Role Phone Jose Lockett MD Primary Care Provider [phone] Reason for Visit * Reason Onset Date Comments Follow Up 10/24/2023 Encounter Details Date Type Department Care Team (Late st Contact Info) Description 10/24/2023 11:00 AM EDT Scheduled Telephone Interventional Pain Center, [facility] [address] [place] [address] [facility] Nurse Phone Call [facility] [address] [place] [address] Chronic bilateral low back pain without sciatica*; [...] ons:Spondylosis of lumbar region without myelopathy or radiculopathy,Supervisor Incising danie bilateral low back pain without sciatica [...] mRNA, LNP-s, No Pre serve, 2-Dose Series ([employer]) 08/25/2020,08/04/2020 COVID-19, LNP-s, No Preserve , Rigo-sucrose, Ages 12+ ([employer]) 03/31/2021 Hepatitis B, 0-19 yrs 11/28/1996 MMR [...] disc documented in this encounter Care Teams Mortgage Originator Relationship Specialty Start Date End Date Jose Lockett MD [address] [place] [address] PCP - General Internal Medicine 05/31/22 documented as of this encounter
--- OUTSIDE RECORDS SUMMARY | 2024-03-18 22:02 | External Medical Summary | Summary of Care ---
Author Name Unknown Organization [facility] Address [address] [facility] [place] [address] Phone [phone] Care Team Providers Care Individual Pension Consultant Name Role Phone Jose Lockett MD Primary Care Provider [phone] Encounter Details Date Type Department Care Team (Late st Contact Info) Description 03/16/2024 7:20 AM EST [facility] [address] [facility] [place] [phone] Jose Lockett MD [address] [facility] [place] [address] Degeneration of intervertebral disc of lumbar region with discogenic back pain*; Spondylosis of lumbar region without myelopathy or radiculopathy; Chronic bilateral low back pain without sciatica Allergies Active Allergy Reactions Criticality Noted Date Comments Baclofen Diarrhea,Nausea/vomi ting, Tachycardia 2023 Diclofenac Nausea/vomiting,Unknown 2023 Mixed Grasses Low 05/31/2022 Sinus drainage Trazodone 03/11/2023 Severe sick feeling documented as of this encounter (statuses as of 03/16/2024) Medications Bacitracin 500 UNIT/GM External Ointment Apply 0.5 g topically to affected area in the morning and 0.5 g at noon and 0.5 g before bedtime. As directed. 30 g 1 Active ZyrTEC Allergy 10 MG Oral Capsule (Cetirizine HCl) Take 1 Capsule by mouth in the morning. Active Celecoxib 100 MG Oral Capsule (CeleBREX)Indic ations:Spondylo sis of lumbar region without myelopathy or radiculopathy,C hronic bilateral low back pain without sciatica Take 1-2 capsules by mouth daily only as needed for pain. Take lowest dose necessary for pain relief. 60 Capsule 2 4 Active Acetaminophen 500 MG Oral Tablet (Tylenol Extra Strength) Take 1 Tablet by mouth every 6 hours as needed for Pain, Severe or Pain, Moderate. 120 Tablet 3 4 Active Celecoxib 100 MG Oral Capsule (CeleBREX)Indic ations:Spondylo sis of lumbar region without myelopathy or radiculopathy,C hronic bilateral low back pain without sciatica Take 1-2 capsules by mouth daily only as needed for pain. Take lowest dose necessary for pain relief. 60 Capsule 2 4 03/16/20 24 Discontinu ed(Refill) documented as of this encounter (statuses as of 03/16/2024) Active Problems Problem Noted Date Diagnosed Date DDD (degenerative disc disease), lumbar 12/28/19 23 Dermoid cyst 08/10/2022 Plantar wart 08/10/2022 Overweight (BMI 25.0-29.9) 06/19/2022 Chronic back pain 06/19/2022 Chronic allergic rhinitis 05/31/2022 JUN (generalized anxiety disorder) 05/31/2022 documented as of this encounter (statuses as of 03/16/2024) Resolved Problems Problem Noted Date Diagnosed Date Resolved Date Sciatica of left side 05/31/20222022 documented as of this encounter (statuses as of 03/16/2024) Immunizations Name Administration Dates Next Due COVID-19 mRNA, LNP-s, No Pre serve, 2-Dose Series ([employer]) 08/25/2020,08/04/2020 COVID-19, LNP-s, No Preserve , Rigo-sucrose, [...] the money to buy more. Never true 03/16/20 24 Within the past 12 months, t he food you bought just didn't last and you didn't have money to get more. Never true 03/16/2024 Childcare Answer Date Recorded Do you feel overwhelmed with taking care of a child, family member or friend? No 03/16/2024 Does your family need help f inding childcare? (Household - for ages 0-17 years) Not on file 03/16/2024 Clothing Answer Date Recorded Have you been unable to get clothing when it was really needed? Yes 03/16/2024 Is your family able to get c lothes or diapers when needed? (Household - for ages 0-17 years) Not on file 03/16/2024 Personal Safety Answer Date Recorded Do you feel unsafe or have concerns for your saf ety? No 03/16/2024 Do you have concerns for you r family's safety? (Household - for ages 0-17 years) Not on file 03/16/2024 Utilities Answer Date Recorded Do you have trouble paying y our heating, water, or electric bill? No 03/16/2024 Is your family able to pay t he heat, water, or electric bill? (Household - for ages 0-17 years) Not on file 03/16/2024 Does your family have access to good internet? (Household - for ages 0-17 years) Not on file 03/16/2024 Employment Status Answer Date Recorded Are you unemployed or without regular income? No 03/16/2024 Does the household have a re gular source of income? (Household - for ages 0-17 years) Not on file 03/16/2024 Social Connections Answer Date Recorded How often do you feel lonely or isolated from those around you? Sometimes 03/16/2024 Financial Resource Strain Answer Date R ecorded Do you have any trouble payi ng for your medications, or do you think you might in the future? No 03/16/2024 Does your family have troubl e paying for medicine? (Household - for ages 0-17 years) Not on file 03/16/2024 Transportation Needs Answer Date Record ed Do you have trouble getting a ride to medical visits or work? (Adult - for ages 18 years and over) Not on file 03/16/2024 Does your family have a hard time getting a ride to doctors visits? (Household - for ages 0-17 years) Not on file 03/16/2024 Has lack of transportation k ept you from medical appointments, meetings, work, or from getting things needed for daily living? Check all that apply. No 03/16/2024 Do you (or your family) have trouble finding or paying for a ride (transportation)? (Household - for ages 0-17 years) Not on file 03/16/2024 Housing Stability Answer Date Recorded Do you currently live in a s helter or have no steady place to sleep at night? No 03/16/2024 Do you think you are at risk of becoming homeless? (Adult - for ages 18 years and over) Not on file 03/16/2024 Does your family worry about paying for your home or becoming homeless? (Household - for ages 0-17 years) Not on file 1 05/17/2023 Are you homeless or worried that you might be in the future? No 03/16/2024 Are you (or your family) benito eless or worried that you might be in the future? (Household - for ages 0-17 years) Not on file Food Insecurity Answer Date Recorded Do you need food for this week? No 03/16/2024 Are you able to get enough f ood for your family? (Household - for ages 0-17 years) Not on file 03/16/2024 Does your family need food t his week? (Household - for ages 0-17 years) Not on file 03/16/2024 Do you always have enough fo od for your family? (Household - for ages 0-17 years) Not on file 03/16/2024 Sex and Gender Information Value Date Recorded Sex Assigned at Male 08/17/2022 12:57 PM EDT Legal Sex Male 9:17 AM EST Gender Identity Male 12/26/2022 9:32 AM EDT Sexual Orientation Straight 08/17/2022 12 :57 PM EDT documented as of this encounter Progress Notes * Jose Lockett MD - 03/16/2024 7:35 AM EST Subjective Jorge Espino is a 33 year old male. No chief complaint on file. HPI: Patient location: HOME. I was in a hospital or clinic location. After connecting through [facility],patient was verified with two unique identifiers. Patient (or authorized legal employee relations representative) was then informed that this was a Telemedicine visit and being conducted confidentially over secure lines. Methods to assure confidentiality were taken. Patient acknowledged consent and understanding of pr ivacy and security of the Telemedicine visit. The patient agreed to participate. Here to discuss about medical mattress but he figured out that his insurance does not cover 2-3 wks ago he had another spinal shot but this time it didn't work enough like last time Needs tylenol and also sending celebrex Also needs FMLA intermittent leave paper form to be faxed alicia PMH: Patient Active Problem List Diagnosis Chronic allergic rhinitis JUN (generalized anxiety disorder) Overweight (BMI 25.0-29.9) Chronic back pain Dermoid cyst Plantar wart DDD (degenerative disc disease), lumbar Current Outpatient Medications Medication Sig Dispense Refill Celecoxib 100 MG Oral Capsule (CeleBREX) Take 1-2 capsules by mouth daily only as needed for pain. Take lowest dose necessary for pain relief. 60 Capsule 2 Acetaminophen 500 MG Oral Tablet (Tylenol Extra Strength) Take 1 Tablet by mouth every 6 hours as needed for Pain, Severe or Pain, Moderate. 120 Tablet 3 Bacitracin 500 UNIT/GM External Ointment Apply 0.5 g topically to affected area in the morning and 0.5 g at noon and 0.5 g before bedtime. As directed. 30 g 1 ZyrTEC Allergy 10 MG Oral Capsule (Cetirizine HCl) Take 1 Capsule by mouth in the morning. (Patientnot taking: Reported on 03/01/2024) No current facility-administered medications for this visit. Past Medical History: Diagnosis Date Chronic back pain 06/19/2022 Overweight (BMI 25.0-29.9) 06/19/2022 Past Surgical History: Procedure Laterality Date L-/S-SPINE PARAVERTEBRAL FACET INJ,1 LEVEL Bilateral 09/23/2023 L-/S-SPINE PARAVERTEBRAL FACET INJ, 1 LEVEL performed by Georgi Csaas DO at [facility] L-/S-SPINE PARAVERTEBRAL FACET INJ,1 LEVEL Bilateral 03/01/2024 L-/S-SPINE PARAVERTEBRAL FACET INJ, 1 LEVEL performed by Georgi Casas DO at [facility] L-/S-SPINE PARAVERTEBRL FACET INJ,2 LEVELS Bilateral 09/23/2023 L-/S-SPINE PARAVERTEBRAL FACET INJ, 2 LEVELS performed by Georgi Casas DO at [facility] L-/S-SPINE PARAVERTEBRL FACET INJ,2 LEVELS Bilateral 03/01/2024 L-/S-SPINE PARAVERTEBRAL FACET INJ, 2 LEVELS performed by Georgi Casas DO at [facility] Review of patient's allergies indicates: Allergen Reactions Baclofen Diarrhea, Nausea/vomiting and Tachycardia Diclofenac Sodium [Diclofenac] Nausea/vomiting and Unknown Trazodone Severe sick feeling Mixed Grasses Sinus drainage Family History Problem Relation Name Age of Onset Hypertension Mother Hypertension Father ALS Grandfather (Maternal) 80 Lung cancer Grandmother (Paternal) 65 Bipolar Disorder Grandmother (Paternal) Colon cancer Grandfather (Paternal) 78 Family Status Relation Status Mo (Not Specified) Fa (Not Specified) MGFA (Not Specified) PGMA (Not Specified) PGFA (Not Specified) Social History Socioeconomic History Marital status: Single Spouse name: Not on file Number of children: Not on file Years of education: Not on file Highest education level: Not on file Occupational History Not on file Tobacco Use Smoking status: Former Current packs/day: 0.00 Types: Cigarettes Quit date: 2010 Years since quittin.9 Passive exposure: Past Smokeless tobacco: Never Vaping Use Vaping status: Every Day Substance and Sexual Activity Alcohol use: Yes Comment: occ Drug use: Yes Types: Marijuana Comment: medical marijauna Sexual activity: Not on file Other Topics Concern Not on file Social History Narrative Not on file Social Needs Financial Resource Strain: Low Risk (03/16/2024) Financial Resource Strain Do you have any trouble paying for your medications, or do you think you might in the future? (Adult - for ages 18 years and over): No Does your family have trouble paying for medicine? (Household - for ages 0-17 years): Not on file Food Insecurity: No Food Insecurity (03/16/2024) Food Insecurity Do you need food for this week? (Adult - for ages 18 years and over): No Are you able to get enough food for your family? (Household - for ages 0-17 years): Not on file Does your family need food this week? (Household - for ages 0-17 years): Not on file Do you always have enough food for your family? (Household - for ages 0-17 years): Not on file Transportation Needs: No Transportation Needs (03/16/2024) Transportation Needs Do you have trouble getting a ride to medical visits or work? (Adult - for ages 18 years and over):Not on file Does your family have a hard time getting a ride to doctors visits? (Household - for ages 0-17 years): Not on file Has lack of transportation kept you from medical appointments, meetings, work, or from getting things needed for daily living? Check all that apply. (Adult - for ages 18 years and over): No Do you (or your family) have trouble finding or paying for a ride (transportation)? (Household - for ages 0-17 years): Not on file Social Connections: Socially Integrated (03/16/2024) Social Connections How often do you feel lonely or isolated from those around you? (Adult - for ages 18 years and over): Sometimes Housing Stability: Low Risk (03/16/2024) Housing Stability Do you currently live in a prison or have no steady place to sleep at night? (Adult - for ages 18 years and over): No Do you think you are at risk of becoming homeless? (Adult - for ages 18 years and over): Not on file Does your family worry about paying for your home or becoming homeless? (Household - for ages 0-17 years): Not on file Are you homeless or worried that you might be in the future? (Adult - for ages 18 years and over): No Are you (or your family) homeless or worried that you might be in the future? (Household - for ages0-17 years): Not on file Review of Systems Constitutional: Positive for activity change and fatigue. Negative for appetite change, chills, diaphoresis, fever and unexpected weight change. Gastrointestinal: Negative for abdominal distention and abdominal pain. Genitourinary: Negative for dysuria, flank pain and hematuria. Musculoskeletal: Positive for back pain. Neurological: Negative for numbness. Psychiatric/Behavioral: Positive for sleep disturbance. Negative for agitation and behavioral problems. The patient is nervous/anxious. Objective There were no vitals taken for this visit. Physical Exam Constitutional: Appearance: Normal appearance. HENT: Head: Normocephalic and atraumatic. Nose: Nose normal. Eyes: Extraocular Movements: Extraocular movements intact. Pulmonary: Effort: Pulmonary effort is normal. Musculoskeletal: General: Tenderness (B/L lower back) present. Neurological: Mental Status: He is alert and oriented to person, place, and time. Psychiatric: Behavior: Behavior normal. ASSESSMENT/PLAN: Degeneration of intervertebral disc of lumbar region with discogenic back pain (Primary) Spondylosis of lumbar region without myelopathy or radiculopathy - Celecoxib 100 MG Oral Capsule (CeleBREX); Take 1-2 capsules by mouth daily only as needed for pain. Take lowest dose necessary for pain relief. Chronic bilateral low back pain without sciatica - Celecoxib 100 MG Oral Capsule (CeleBREX); Take 1-2 capsules by mouth daily only as needed for pain. Take lowest dose necessary for pain relief. Other orders - Acetaminophen 500 MG Oral Tablet (Tylenol Extra Strength); Take 1 Tablet by mouth every 6 hours as needed for Pain, Severe or Pain, Moderate. Pain med prn F/u with pain medicine Jose Lockett MD documented in this encounter Plan of Treatment Upcoming Encounters Date Type Department Care Team (Late st Contact Info) Description 03/19/2024 11:30 AM EST Office Visit Interventional Pain Center, [facility] [address] [facility] [place] [address] Kami Sparrow PA-C [address] [place] [address] 04/05/2024 2:00 PM EST Scheduled Telephone [facility] [address] [place] [address] Jann Nurse Phone Call [facility] [address] [place] [address] Health Maintenance Due Date Last Done Comments [...] as of this encounter Visit Diagnoses Diagnosis Degeneration of intervertebral disc of lumbar region with discogenic back pain- Primary Spondylosis of lumbar region without myelopathy or radiculopathy Lumbosacral spondylosis without myelopathy Chronic bilateral low back pain without sciatica documented in this encounter Care Teams Individual Pension Consultant Relationship Specialty Start Date End Date Jose Lockett MD [facility] [address] [facility] [place] [address] PCP - General Internal Medicine 05/31/22 documented as of this encounter
--- OUTSIDE RECORDS SUMMARY | 2024-03-18 22:02 | External Medical Summary | Summary of Care ---
Author Name Unknown Organization [facility] Address [address] [facility] [place] [address] Phone [phone] Care Team Providers Care Brownell Operator Name Role Phone Jose Lockett MD Primary Care Provider [phone] Encounter Details Date Type Department Care Team (Latest Contact Info) Description 12/14/2023 2:27 PM EDT - 12/14/2023 11:59 PM EDT Hospital Encounter Radiology Film File [address] [place] [facility] [place] [address] Arrived Discharge Disposition: Home - Self Care Allergies Active Allergy Reactions Criticality Noted Date Comments Baclofen Diarrhea,Nausea/vomi ting, Tachycardia 2023 Diclofenac Nausea/vomiting,Unknown 2023 Mixed Grasses Low 05/31/2022 Sinus drainage Trazodone 03/11/2023 Severe sick feeling documented as of this encounter (statuses as of 12/15/2023) Medications Medication Sig Dispensed Refills Start Date [...] ons:Spondylosis of lumbar region without myelopathy or radiculopathy,Batteryman danie bilateral low back pain without sciatica Take 1-2 capsules by mouth daily only as needed for pain. Take lowest dose necessary for pain relief. 60 Capsule 2 08/16/2023 Active Additional Information Patient not taking.Reported on 12/07/2023 documented as of this encounter (statuses as of 12/15/2023) Active Problems Problem Noted Date Diagnosed Date DDD (degenerative disc disease), lumbar 12/28/19 Dermoid cyst 08/10/2022 Plantar wart 08/10/2022 Overweight (BMI 25.0-29.9) 06/19/2022 Chronic back pain 06/19/2022 Chronic allergic rhinitis 05/31/2022 JUN (generalized anxiety disorder) 05/31/2022 documented as of this encounter (statuses as of 12/15/2023) Resolved Problems Problem Noted Date Diagnosed Date Resolved Date Sciatica of left side 05/31/20222022 documented as of this encounter (statuses as of 12/15/2023) Immunizations Name Administration Dates Next Due COVID-19 mRNA, LNP-s, No Pre serve, 2-Dose Series ([employer]) 08/25/2020,08/04/2020 COVID-19, LNP-s, No Preserve , Rigo-sucrose, [...] No 12/26/2022 Does the household have a [facility] source of [facility]? (Household - for ages [...] on file documented as of this encounter Plan of Treatment Health Maintenance Due Date Last Done Comments Hepatitis B Vaccine (2 of 3 - 3-dose series) 12/26/1996 11/28/1996 HIV Screening 2004 Hepatitis C Screening 07/01/2007 COVID-19 Vaccine (2022-2 4 season) 2023 03/31/2021, 08/25/2020, 08/04/2020 Influenza Vaccine [...] Procedure Name Priority Date/Time Associated Diagnosis Comments DERM EXAM - DERM (IMAGES ONLY, NO REPORT) Routine 12/14/2023 2:27 PM EDT Dermatofibroma Excoriation Prurigo nodularis documented in this encounter Results * DERM EXAM - DERM (IMAGES ONLY, NO REPORT) (12/14/2023 2:27 PM EDT) Narrative Scheduling, Silent - 12/14/2023 2:27 PM EDT This is an imaging study not interpreted or resulted by a [employer] or [employer] contracted radiologist. Vee Olguin PA-C RADIOLOGY (RAD GENERAL) documented in this encounter Care Teams Brownell Operator Relationship Specialty Start Date End Date Jose Lockett MD [address] [facility] [address] PCP - General Internal Medicine 05/31/22 documented as of this encounter
--- OUTSIDE RECORDS SUMMARY | 2024-03-18 22:02 | External Medical Summary | Summary of Care ---
Author Name Unknown Organization [facility] Address [address] [facility] [place] [address] Phone [phone] Care Team Providers Care Utility Worker Roller Shop Name Role Phone Jose Lockett MD Primary Care Provider [phone] Reason for Visit * Reason Onset Date Comments Follow Up 10/24/2023 Encounter Details Date Type Department Care Team (Late st Contact Info) Description 10/24/2023 11:00 AM EDT Scheduled Telephone Interventional Pain Center, [facility] [address] [place] [address] [facility] Nurse Phone Call Interventional Pain [facility] [address] [place] [address] Allergies Active Allergy Reactions Criticality Noted Date [...] ons:Spondylosis of lumbar region without myelopathy or radiculopathy,Manager Of Operations danie bilateral low back pain without sciatica [...] encounter Miscellaneous Notes * Telephone Encounter - Lauren Arzate OSA [...] filedocumented as of this encounter Care Teams Utility Worker Roller Shop Relationship Specialty Start Date End Date Jose Lockett MD [address] [place] [address] PCP - General Internal Medicine 05/31/22 documented as of this encounter
--- OUTSIDE RECORDS SUMMARY | 2024-03-18 22:02 | External Medical Summary | Summary of Care ---
Author Name Unknown Organization [facility] Address [address] [place] [facility] [address] Phone [phone] Care Team Providers Care Automotive Shop Foreman Name Role Phone Jose Lockett MD Primary Care Provider Reason for Visit * Reason Onset Date Comments Letter Requests 09/20/2023 Encounter Details Date Type Department Care Team (Late st Contact Info) Description 09/20/2023 Telephone Access Center, [place] [address] [facility] *DO NOT REMOVE THIS DEPARTMENT* [place] [id number] Services, Scheduling [address] [place] [address] Letter Requests Allergies Active Allergy Reactions Criticality Noted Date Comments Baclofen Diarrhea,Nausea/vomi ting, Tachycardia 2023 Diclofenac Nausea/vomiting,Unknown 2023 Mixed Grasses Low 05/31/2022 Sinus drainage Trazodone 03/11/2023 Severe sick feeling documented as of this encounter (statuses as of 12/20/2023) Medications Medication Sig Dispensed Refills Start Date [...] ons:Spondylosis of lumbar region without myelopathy or radiculopathy,Trim And Burr Operator danie bilateral low back pain without sciatica Take 1-2 capsules by mouth daily only as needed for pain. Take lowest dose necessary for pain relief. 60 Capsule 2 08/16/2023 Active Additional Information Patient not taking.Reported on 12/07/2023 documented as of this encounter (statuses as of 12/20/2023) Active Problems Problem Noted Date Diagnosed Date DDD (degenerative disc disease), lumbar 12/28/19 Dermoid cyst 08/10/2022 Plantar wart 08/10/2022 Overweight (BMI 25.0-29.9) 06/19/2022 Chronic back pain 06/19/2022 Chronic allergic rhinitis 05/31/2022 JUN (generalized anxiety disorder) 05/31/2022 documented as of this encounter (statuses as of 12/20/2023) Resolved Problems Problem Noted Date Diagnosed Date Resolved Date Sciatica of left side 05/31/20222022 documented as of this encounter (statuses as of 12/20/2023) Immunizations Name Administration Dates Next Due COVID-19 mRNA, LNP-s, No Pre serve, 2-Dose Series ([employer]) 08/25/2020,08/04/2020 COVID-19, LNP-s, No Preserve , Rigo-sucrose, [...] 12/26/2022 Does the household have a re lar source of income? (Household - for ages [...] encounter Miscellaneous Notes * Telephone Encounter - Sherron Oliver OSA - 09/20/2023 11:48 AM EDT Pt calling regarding a letter that he received from his insurance stating that his injection was not approved due to paper work submitted is missing information. Per pt the letter stated that the office notes does not include the specific injection that the patient is getting on 09/22. Pt requestingto please resubmit to insurance with information about the injection so that it could be approved. Please call pt when completed or if any further questions BENNY Chen 09/20/2023 11:52 AM documented in this encounter Plan of Treatment [...] filedocumented as of this encounter Care Teams Automotive Shop Foreman Relationship Specialty Start Date End Date Jose Lockett MD [address] [place] [address] PCP - General Internal Medicine 05/31/22 documented as of this encounter
--- OUTSIDE RECORDS SUMMARY | 2024-03-18 22:02 | External Medical Summary | Summary of Care ---
Author Name Unknown Organization [facility] Address [address] [facility] [place] [address] Phone [phone] Care Team Providers Care Coremaker Machine Name Role Phone Jose Lockett MD Primary Care Provider [phone] Reason for Visit * Reason Onset Date Comments Advice 03/14/2024 Encounter Details Date Type Department Care Team (Late st Contact Info) Description 03/14/2024 Telephone Access Center, [place] [address] [facility] *DO NOT REMOVE THIS DEPARTMENT* [place] [address] Services, Scheduling [address] [place] [address] Advice Allergies Active Allergy Reactions Criticality Noted Date Comments Baclofen Diarrhea,Nausea/vomi ting, Tachycardia 2023 Diclofenac Nausea/vomiting,Unknown 2023 Mixed Grasses Low 05/31/2022 Sinus drainage Trazodone 03/11/2023 Severe sick feeling documented as of this encounter (statuses as of 03/14/2024) Medications Bacitracin 500 UNIT/GM External Ointment Apply [...] as of this encounter (statuses as of 03/14/2024) Active Problems Problem Noted Date Diagnosed Date DDD (degenerative disc disease), lumbar 12/28/19 23 Dermoid cyst 08/10/2022 Plantar wart 08/10/2022 Overweight (BMI 25.0-29.9) 06/19/2022 Chronic back pain 06/19/2022 Chronic allergic rhinitis 05/31/2022 JUN (generalized anxiety disorder) 05/31/2022 documented as of this encounter (statuses as of 03/14/2024) Resolved Problems Problem Noted Date Diagnosed Date Resolved Date Sciatica of left side 05/31/20222022 documented as of this encounter (statuses as of 03/14/2024) Immunizations Name Administration Dates Next Due COVID-19 mRNA, LNP-s, No Pre serve, 2-Dose Series ([employer]) 08/25/2020,08/04/2020 COVID-19, LNP-s, No Preserve , Rigo-sucrose, Ages 12+ ([employer]) 03/31/2021 Hepatitis B, 0-19 yrs 11/28/1996 MMR [...] PM EST Scheduled Telephone Interventional Pain Center, [facility] [address] [place] [address] Jann Nurse Phone Call Interventional Pain [place] [address] [place] [address] Health Maintenance Due Date Last Done Comments [...] filedocumented as of this encounter Care Teams Coremaker Machine Relationship Specialty Start Date End Date Jose Lockett MD [address] [place] [address] PCP - General Internal Medicine 05/31/22 documented as of this encounter
--- OUTSIDE RECORDS SUMMARY | 2024-03-18 22:03 | External Medical Summary | Summary of Care ---
Author Name Unknown Organization [facility] Address [address] [facility] [place] [address] Phone [phone] Care Team Providers Care Sheet Metal Shop Foreman Name Role Phone Jose Lockett MD Primary Care Provider [phone] Reason for Visit * Reason Onset Date Comments Test Results 09/07/2023 Encounter Details Date Type Department Care Team (Late st Contact Info) Description 09/07/2023 Telephone [facility] [address] [place] [address] Jose Lockett MD [address] [place] [address] Test Results Allergies Active Allergy Reactions Criticality Noted Date Comments Baclofen Diarrhea,Nausea/vomi ting, Tachycardia 2023 Diclofenac Nausea/vomiting,Unknown 2023 Mixed Grasses Low 05/31/2022 Sinus drainage Trazodone 03/11/2023 Severe sick feeling documented as of this encounter (statuses as of 12/07/2023) Medications Medication Sig Dispensed Refills Start Date End Date Status Bacitracin 500 UNIT/GM External Ointment Apply 0.5 g topically to affected area in the morning and 0.5 g at noon and 0.5 g before bedtime. As directed. 30 g 1 01/31/2023 Active Additional Information Patient not taking.Reported on 12/07/2023 ZyrTEC Allergy 10 MG Oral Capsule (Cetirizine HCl) Take 1 Capsule by mouth in the morning. Active Celecoxib 100 MG Oral Capsule (CeleBREX)Indicati ons:Spondylosis of lumbar region without myelopathy or radiculopathy,Time Checker danie bilateral low back pain without sciatica Take 1-2 capsules by mouth daily only as needed for pain. Take lowest dose necessary for pain relief. 60 Capsule 2 08/16/2023 Active Additional Information Patient not taking.Reported on 12/07/2023 documented as of this encounter (statuses as of 12/07/2023) Active Problems Problem Noted Date Diagnosed Date DDD (degenerative disc disease), lumbar 12/28/19 Dermoid cyst 08/10/2022 Plantar wart 08/10/2022 Overweight (BMI 25.0-29.9) 06/19/2022 Chronic back pain 06/19/2022 Chronic allergic rhinitis 05/31/2022 JUN (generalized anxiety disorder) 05/31/2022 documented as of this encounter (statuses as of 12/07/2023) Resolved Problems Problem Noted Date Diagnosed Date Resolved Date Sciatica of left side 05/31/20222022 documented as of this encounter (statuses as of 12/07/2023) Immunizations Name Administration Dates Next Due COVID-19 mRNA, LNP-s, No Pre serve, 2-Dose Series ([employer]) 08/25/2020,08/04/2020 COVID-19, LNP-s, No Preserve , Rigo-sucrose, [...] encounter Miscellaneous Notes * Telephone Encounter - Anca Mensah LPN - 09/08/2023 9:41 AM EDT Faxed results as requested by patient to the number listed below. * Telephone Encounter - Lyric Munroe OSA - 09/07/2023 11:01 AM EDT Pt needs MRI done in July Faxed to Dr. Aguilar @ [phone] documented in this encounter Plan of Treatment Upcoming Encounters Date Type Department Care Team (Late st Contact Info) Description 12/14/2023 2:20 PM EDT Office Visit Dermatology [address] [place] [address] Vee Olguin [address] [place] [address] Health Maintenance Due Date Last Done Comments Hepatitis B Vaccine (2 of 3 - 3-dose series) 12/26/1996 11/28/1996 HIV Screening 2004 Hepatitis C Screening 07/01/2007 COVID-19 Vaccine (2022-2 4 season) 2022 03/31/2021, 08/25/2020, 08/04/2020 Influenza Vaccine (FLU shot) [...] filedocumented as of this encounter Care Teams Sheet Metal Shop Foreman Relationship Specialty Start Date End Date Jose Lockett MD [address] [place] [facility] [place] [address] PCP - General Internal Medicine 05/31/22 documented as of this encounter
--- OUTSIDE RECORDS SUMMARY | 2024-03-18 22:03 | External Medical Summary | Summary of Care ---
Author Name Unknown Organization [facility] Address [address] [place] [facility] [place] [address] Phone [phone] Care Team Providers Care Ion Exchange Operator Name Role Phone Jose Lockett MD Primary Care Provider [phone] Reason for Visit * Reason Comments Follow Up Pt with c/o 2 lesion s he would like evaluated today. * Evaluate & Treat - Unlimited Visits (Within 10 days (routine)) - Pending Review Specialty Diagnoses / Procedures Referred By Carter diaz Referred To Contact Dermatology Diagnoses Change in mole Jose Lockett MD [address] [place] [address] Referral ID Status Reason Start Date Expiration Date Visits Requested Visits Authorized [id number] Pending Review Specialty Services Required 12/02/[phone] Encounter Details Date Type Department Care Team (Late st Contact Info) Description 12/14/2023 2:20 PM EDT Office Visit Dermatology [address] [place] [address] Vee Olguin PA-C [address] [place] [address] [place] [address] Dermatofibroma*; Excoriation; Prurigo nodularis Allergies Active Allergy Reactions Criticality Noted Date Comments Baclofen Diarrhea,Nausea/vomi ting, Tachycardia 2023 Diclofenac Nausea/vomiting,Unknown 2023 Mixed Grasses Low 05/31/2022 Sinus drainage Trazodone 03/11/2023 Severe sick feeling documented as of this encounter (statuses as of 12/14/2023) Medications Medication Sig Dispensed Refills Start Date [...] ons:Spondylosis of lumbar region without myelopathy or radiculopathy,Coal Sample Tester danie bilateral low back pain without sciatica Take 1-2 capsules by mouth daily only as needed for pain. Take lowest dose necessary for pain relief. 60 Capsule 2 08/16/2023 Active Additional Information Patient not taking.Reported on 12/07/2023 documented as of this encounter (statuses as of 12/14/2023) Active Problems Problem Noted Date Diagnosed Date DDD (degenerative disc disease), lumbar 12/28/19 Dermoid cyst 08/10/2022 Plantar wart 08/10/2022 Overweight (BMI 25.0-29.9) 06/19/2022 Chronic back pain 06/19/2022 Chronic allergic rhinitis 05/31/2022 JUN (generalized anxiety disorder) 05/31/2022 documented as of this encounter (statuses as of 12/14/2023) Resolved Problems Problem Noted Date Diagnosed Date Resolved Date Sciatica of left side 05/31/20222022 documented as of this encounter (statuses as of 12/14/2023) Immunizations Name Administration Dates Next Due COVID-19 mRNA, LNP-s, No Pre serve, 2-Dose Series ([employer]) 08/25/2020,08/04/2020 COVID-19, LNP-s, No Preserve , Rigo-sucrose, [...] on file documented as of this encounter Patient Instructions * Patient Instructions* Vee Olguin PA-C - 12/14/2023 2:25 PM EDT SUNSCREEN USE AND SUN PROTECTION: 1. The best protection is sun avoidance. Seek shade if you can, especially between 10am to 4pm (peak sun hours). 2. Use sunscreen with an SPF (Sun Protection Factor - the number on most sunscreen bottles) of 30 or more that protects from Ultraviolet A (UVA) and Ultraviolet B (UVB) wavelength light (strongly recommend SPF 50). This is referred to as broad spectrum sun protection because it protects from most wa velengths in both spectrums of UVA and UVB light. Unfortunately, even though the protection is broad it is not complete, therefore making sun avoidance the best protection. UVB and UVA have both beenimplicated in causing skin cancers. Older sunscreens only protected from UVB and sunscreens with added UVA protection should contain Titanium dioxide, Zinc oxide, or Avobenzone. Other oil free, non-comedogenic lotion with SPF 30 or greater is fine. 3. Use sun protection if outside for 15 minutes or more. Apply 20-30 minutes before going out and reapply every 1-2 hours. No sunscreen is truly water ''proof'' and it will wash away with sweat, swimming and rubbing. 4. Wear tightly woven, loose fitting (cooler) long sleeved clothing, UV-blocking sun glasses (eyes need protection as well) and wide-brimmed hatwear (no straw hats with holes because light still getsthrough). Strongly recommended *Neutrogena Pure and Free Baby SPF 60 (have separate face and body lotions) orCeraVe AM facial lotion (with SPF 30). If looking for non toxic alternatives-look for non-lyudmila particle zinc. Product examples; Think sport, Think baby, [place], Brandizi, PEX Card, [place] baby. "Baby" products can be used for all ages. documented in this encounter Progress Notes * Emmanuel Woods MD - 12/14/2023 3:06 PM EDT I have seen and examined the patient via teledermatology review of chart note and photos with Vee Olguin PA-C. I have reviewed and agree with the assessment and plan. * Vee Olguin PA-C - 12/14/2023 2:20 PM EDT SUBJECTIVE: History of Present Illness: Jorge Espino is a 33 year old male seen today for follow up of lesions. Previous appointment date: 08/17/2022 Last attempted treatments include: treatment of plantar verrucae Lesion on L pretibial region, present for about 2 years. Tried OTC wart meds without improvement. Lesion on back, thought to be acne but has not resolved and now is sensitive to touch. REVIEW OF SYSTEMS: SKIN: No other new or changing moles. HEME/LYMPH: No new or enlarging lumps or bumps. CONSTITUTIONAL: No nausea, vomiting, fevers, chills, diarrhea. No recent unintended weight loss, night sweats, appetite or malaise. RESP: negative MSK/EXT: Negative or as per HPI GI: negative CV: Negative or as per HPI Rest of systems are negative or as per HPI SKIN CANCER HX: NONE Reviewed, same day as visit, 0 [facility] Dermatology lab work(s)/pathology report(s) as well as those sent by referring provider prior to seeing pt. MEDICA TIONS: Current Outpatient Medications Medication Sig Dispense Refill Bacitracin 500 UNIT/GM External Ointment Apply 0.5 g topically to affected area in the morning and 0.5 g at noon and 0.5 g before bedtime. As directed. 30 g 1 ZyrTEC Allergy 10 MG Oral Capsule (Cetirizine HCl) Take 1 Capsule by mouth in the morning. Celecoxib 100 MG Oral Capsule (CeleBREX) Take 1-2 capsules by mouth daily only as needed for pain. Take lowest dose necessary for pain relief. (Patient not taking: Reported on 12/07/2023) 60 Capsule 2 No current facility-administered medications for this visit. ALLERG IES: Baclofen, Diclofenac sodium [diclofenac], Trazodone, and Mixed grasses OBJECT BRITTNEY: GEN: alert, no distress, appears oriented, pleasant, and cooperative. SKIN: Detailed exam of back and left lower ext. (leg) completed: L upper back-Excoriated lichenified papule. L pretibial sorwhz-oyiz-qqziiblkuawzt brown pigmented mobile nodule with evidence of overlying epidermal tethering with lateral tactile compression. ASSESS MENT/PLAN: Excoriation/prurigo nodule on L upper back-Pt declined need for shave removal of lesion, no furthertx needed. 2. Dermatofibroma on L pretibial region-No treatment needed, pt given reassurance. Skin cancer brochure given and ABCDE's discussed with patient. Annual full body skin examination (unless I recommended otherwise), self-examination, and sun protection (SPF 30+ daily to sun exposed areas, with reapplication every 1-2 hours when out in sun for long periods of time) advised and discussed. Recommended sooner follow up for new or changing lesions. These changes include rapid enlargement, changes in color or shape or symptoms, bleeding, or other concerns. The common features and behavior of non-melanoma skin cancers (e.g. BCC/SCC) as well as the ABCDEs and ugly duckling features of melanoma were also reviewed. Patient alone today. Photo(s) of #1-2 taken, pt verbally consented to having photo(s) taken. Follow-up: as needed Applicable photos (if any) and chart reviewed by Dr. Emmanuel Woods. Presumed diagnoses, expected natural histories, and management options discussed with the patient at length. Questions were addressed and anticipatory guidance provided. They were instructed to contact me if additional questions, concerns, or problems develop in the interim. -There were no barriers to learning and no other pain was related to today's visit. The patient and/or person accompanying patient demonstrates understanding of the visit and treatment. Vee Olguin PA-C 12/14/2023 2:23 PM Dermatology [address] [place] [id number] documented in this encounter Nursing Notes * Augusta Yuan CMA - 12/14/2023 2:11 PM EDT Chief Complaint Patient presents with Follow Up Pt with c/o 2 lesions he would like evaluated today. documented in this encounter Plan of Treatment [...] REPORT) (12/14/2023 2:27 PM EDT) Narrative Scheduling, - 12/14/2023 2:27 PM EDT This is an imaging study not interpreted or resulted by a [facility] or [facility] contracted radiologist. 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
--- OUTSIDE RECORDS SUMMARY | 2024-03-18 22:03 | External Medical Summary | Summary of Care ---
Author Name Unknown Organization [facility] Address [address] [place] [place] [address] Phone [phone] Care Team Providers Care Juvenile Officer Name Role Phone Jose Lockett MD Primary Care Provider [phone] Reason for Referral * Evaluate & Treat - Unlimited Visits (Within 10 days (routine)) - Pending Review Specialty Diagnoses / Procedures Referred By Contariadne t Referred To Contact Dermatology Diagnoses Change in mole Jose Lockett MD [address] [place] [address] Referral ID Status Reason Start Date Expiration Date Visits Requested Visits Authorized [id number] Pending Review Specialty Services Required 12/02/[phone] Question Answer Referral Priority Within 10 days (routine) Where should this appointment be scheduled? [facility] Are you referring the patient for Mohs Surgery and have a current positive skin cancer biopsy result? No What is the reason for the patient referral? Rash/Skin Check/Eval of Lesion or Mole * Evaluate & Treat - Unlimited Visits (Within 10 days (routine)) - Pending Review Specialty Diagnoses / Procedures Referred By Contac t Referred To Contact General Surgery Diagnoses Infected cyst of skin Jose Lockett MD [address] [place] [address] Referral ID Status Reason Start Date Expiration Date Visits Requested Visits Authorized [id number] Pending Review Specialty Services Required 12/02/[phone] Question Answer Referral Priority Within 10 days (routine) Where should this appointment be scheduled? [facility] What condition is the patient being seen for? General Surgery Conditions What condition is the patient being seen for? Skin Lesions (SubQ Nodules) Encounter Details Date Type Department Care Team (Late st Contact Info) Description 12/02/2023 9:00 AM EDT Telemedicine [facility] [address] [place] [address] Jose Lockett MD [address] [facility], [place] [id number] DDD (degenerative disc disease), lumbar*; Chronic bilateral low back pain with bilateral sciatica; Infected cyst of skin; Change in mole Allergies Active Allergy Reactions Criticality Noted Date Comments Baclofen Diarrhea,Nausea/vomi ting, Tachycardia 2023 Diclofenac Nausea/vomiting,Unknown 2023 Mixed Grasses Low 05/31/2022 Sinus drainage Trazodone 03/11/2023 Severe sick feeling documented as of this encounter (statuses as of 12/02/2023) Medications Medication Sig Dispensed Refills Start Date [...] morning. Active Celecoxib 100 MG Oral Capsule (CeleBREX)Indicatio ns:Spondylosis of lumbar region without myelopathy or radiculopathy,Chron ic bilateral low back pain without sciatica Take 1-2 capsules by mouth daily only as needed for pain. Take lowest dose necessary for pain relief. 60 Capsule 2 08/16/2023 Active documented as of this encounter (statuses as of 12/02/2023) Active Problems Problem Noted Date Diagnosed Date DDD (degenerative disc disease), lumbar 12/28/19 Dermoid cyst 08/10/2022 Plantar wart 08/10/2022 Overweight (BMI 25.0-29.9) 06/19/2022 Chronic back pain 06/19/2022 Chronic allergic rhinitis 05/31/2022 JUN (generalized anxiety disorder) 05/31/2022 documented as of this encounter (statuses as of 12/02/2023) Resolved Problems Problem Noted Date Diagnosed Date Resolved Date Sciatica of left side 05/31/20222022 documented as of this encounter (statuses as of 12/02/2023) Immunizations Name Administration Dates Next Due COVID-19 mRNA, LNP-s, No Pre serve, 2-Dose Series ([employer]) 08/25/2020,08/04/2020 COVID-19, LNP-s, No Preserve , Rigo-sucrose, Ages 12+ ([employer]) 03/31/2021 Hepatitis B, 0-19 yrs 11/28/1996 MMR [...] on file documented as of this encounter Progress Notes * Jose Lockett MD - 12/02/2023 9:16 AM EDT Subjective Jorge Espino is a 33 year old male. No chief complaint on file. HPI: Patient location: HOME. I was in a hospital or clinic location. After connecting through [employer],patient was verified with two unique identifiers. 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 Methods to assure confidentiality were taken. Patient acknowledged consent and understanding of pr ivacy and security of the Telemedicine visit. The patient agreed to participate. Here to discuss about removing work restriction since his chronic back pain is much better Had spinal injection in [place] which helped greatly Needs a letter for that Also has recurrent infected cyst in upper thigh , would like to remove Noticed some moles changes on back and other body par, would like to see derm PMH: Patient Active Problem List Diagnosis Chronic [...] necessary for pain relief. 60 Capsule 2 No current facility-administered medications for this visit. Past Medical History: Diagnosis Date Chronic back pain 06/19/2022 Overweight (BMI 25.0-29.9) 06/19/2022 Past Surgical History: Procedure Laterality Date L-/S-SPINE PARAVERTEBRAL FACET INJ,1 LEVEL Bilateral 09/23/2023 L-/S-SPINE PARAVERTEBRAL FACET INJ, 1 LEVEL performed by Georgi Casas DO at OR [facility] L-/S-SPINE PARAVERTEBRL FACET INJ,2 LEVELS Bilateral 09/23/2023 L-/S-SPINE PARAVERTEBRAL FACET INJ, 2 LEVELS performed by Georgi Casas DO at OR [facility] Review of patient's allergies indicates: Allergen Reactions [...] Types: Cigarettes Quit date: 2010 Years since quittin.6 Passive exposure: Past Smokeless tobacco: Never Vaping Use Vaping status: Every Day Substance and Sexual Activity Alcohol use: Yes Comment: occ Drug use: Yes Types: Marijuana Comment: medical marijauna Sexual activity: Not on file Other Topics Concern Not on file Social History Narrative Not on file Social Determinants of Health Financial Resource Strain: Low Risk (12/26/2022) Financial Resource Strain Do you have any trouble paying for your medications, or do you think you might in the future? (Adult - for ages 18 years and over): No Does your family have trouble paying for medicine? (Household - for ages 0-17 years): Not on file Food Insecurity: No Food Insecurity (12/26/2022) Food Insecurity Do you need food for [...] on file Transportation Needs: No Transportation Needs (12/26/2022) Transportation Needs Do you have trouble getting a ride to medical visits or work? (Adult - for ages 18 years and over):Never True Does your family have a hard time getting a ride to doctors visits? (Household - for ages 0-17 years): Not on file Has lack of transportation kept you from medical appointments, meetings, work, or from getting things needed for daily living? Check all that apply. (Adult - for ages 18 years and over): Not on file Do you (or your family) have trouble finding or paying for a ride (transportation)? (Household - for ages 0-17 years): Not on file Social Connections: Socially Integrated (12/26/2022) Social Connections How often do you feel lonely or isolated from those around you? (Adult - for ages 18 years and over): Sometimes Housing Stability: Low Risk (12/26/2022) Housing Stability Do you currently live in a skilled nursing or have no steady place to sleep at night? (Adult - for ages 18 years and over): No Do you think you are at risk of becoming homeless? (Adult - for ages 18 years and over): No Does your family worry about paying for your home or becoming homeless? (Household - for ages 0-17 years): Not on file Are you homeless or worried that you might be in the future? (Adult - for ages 18 years and over): Not on file Are you (or your family) homeless or worried that you might be in the future? (Household - for ages0-17 years): Not on file Review of Systems Constitutional: Negative for activity change, appetite change, chills, diaphoresis, fatigue, fever and unexpected weight change. Gastrointestinal: Negative for abdominal distention and abdominal pain. Musculoskeletal: Positive for back pain (mild only). Skin: Skin moles and cyst Neurological: Negative for dizziness and light-headedness. Psychiatric/Behavioral: Negative for agitation, behavioral problems and sleep disturbance. The patient is nervous/anxious. Objective There were no vitals taken for this visit. Physical Exam Constitutional: General: He is not in acute distress. Appearance: Normal appearance. He is not ill-appearing, toxic-appearing or diaphoretic. HENT: Head: Normocephalic and atraumatic. Nose: Nose normal. Eyes: Extraocular Movements: Extraocular movements intact. Neurological: Mental Status: He is alert and oriented to person, place, and time. Psychiatric: Behavior: Behavior normal. ASSESSMENT/PLAN: DDD (degenerative disc disease), lumbar (Primary) Chronic bilateral low back pain with bilateral sciatica Infected cyst of skin - SURGERY REFERRAL OP Change in mole - DERMATOLOGY REFERRAL OP Check-out note: Schedule with surgery Schedule with derm Jose Lockett MD documented in this encounter Plan of Treatment Upcoming Encounters Date Type Department Care Team (Late st Contact Info) Description 12/07/2023 10:00 AM EDT Office Visit General Surgery, [facility] [address] [address] Thanh Puentes MD [address] [place] [address] 12/14/2023 2:20 PM EDT Office Visit Dermatology [address] [place] [address] Vee Olguin PA-C [address] [place] [address] [place] [address] Scheduled Referrals Name Type Priority Associated Diagnoses Orde r Schedule SURGERY REFERRAL OP Referral Within 10 da ys (routine) Infected cyst of skin Ordered: 12/02/2023 DERMATOLOGY REFERRAL OP Referral Within 10 days (routine) Change in mole Ordered: 12/02/2023 Health Maintenance Due Date Last Done Comments Hepatitis B Vaccine (2 of 3 - 3-dose series) 12/26/1996 11/28/1996 HIV Screening 2004 Hepatitis C Screening 07/01/2007 COVID-19 Vaccine (2022-2 4 season) 2022 03/31/2021, 08/25/2020, 08/04/2020 Influenza Vaccine (FLU shot) (#1) 2023 Depression Screening 03/07/2024 03/07/2023 DTaP,Tdap,and Td Vaccines (3 - Td or Tdap) 09/28/2024 09/28/2014, 06/02/2011 HPV (Gardasil) Vaccine [...] as of this encounter Visit Diagnoses Diagnosis DDD (degenerative disc disease), lumbar- Primary Degeneration of lumbar or lumbosacral intervertebral disc Chronic bilateral low back pain with bilateral sciatica Infected cyst of skin Sebaceous cyst Change in mole documented in this encounter Care Teams Juvenile Officer Relationship Specialty Start Date End Date Jose Lockett MD [address] [place] [address] PCP - General Internal Medicine 05/31/22 documented as of this encounter
--- OUTSIDE RECORDS SUMMARY | 2024-03-18 22:03 | External Medical Summary | Summary of Care ---
Author Name Unknown Organization [facility] Address [address] [facility] [place] [address] Phone [phone] Care Team Providers Care Lubricating Engineer Name Role Phone Jose Lockett MD Primary Care Provider [phone] Reason for Visit * Reason Comments Follow Up Pt with c/o 2 lesion s he would like evaluated today. * Evaluate & Treat - Unlimited Visits (Within 10 days (routine)) - Pending Review Specialty Diagnoses / Procedures Referred By Carter diaz Referred To Contact Dermatology Diagnoses Change in mole Jose Lockett MD [address] [place] [address] Referral ID Status Reason Start Date Expiration Date Visits Requested Visits Authorized [id number] Pending Review Specialty Services Required 12/02/[phone] Encounter Details Date Type Department Care Team (Late st Contact Info) Description 12/14/2023 2:20 PM EDT Office Visit Dermatology [address] [place] [address] Vee Olguin PA-C [address] [place] [address] [place] [address] Dermatofibroma*; Excoriation; Prurigo nodularis Allergies Active Allergy [...] ons:Spondylosis of lumbar region without myelopathy or radiculopathy,Code Official danie bilateral low back pain without sciatica [...] mRNA, LNP-s, No Pre serve, 2-Dose Series ([employer]) 08/25/2020,08/04/2020 COVID-19, LNP-s, No Preserve , Rigo-sucrose, [...] zinc. Product examples; Think sport, Think baby, Lomira, Stretch, Desi Hits, [place] baby. "Baby" products can be used for all ages. documented in this encounter Progress Notes * Vee Olguin PA-C - 12/14/2023 2:20 [...] NONE Reviewed, same day as visit, [facility] Dermatology lab work(s)/pathology report(s) as well as [...] L upper back-Excoriated lichenified papule. L pretibial [id number] brown pigmented mobile nodule with evidence of [...] Vee Olguin PA-C 12/14/2023 2:23 PM Dermatology [address] [place]oph [place] [address] documented in this encounter Nursing Notes * [...] C Screening 07/01/2007 COVID-19 Vaccine (4 - 2022-2 4 season) 2023 03/31/2021, 08/25/2020, 08/04/2020 Influenza [...] study not interpreted or resulted by a [facility] or [facility] contracted radiologist. Vee Olguin PA-C RADIOLOGY ([facility]) documented in this encounter Visit Diagnoses Diagnosis Dermatofibroma- Primary Benign neoplasm of skin, site unspecified Excoriation Other and unspecified superficial injury of other, multiple, and unspecified sites, without mention of infection Prurigo nodularis Lichenification and lichen simplex chronicus documented in this encounter Care Teams Lubricating Engineer Relationship Specialty Start Date End Date Jose Locektt MD [address] [place] [address] PCP - General Internal Medicine 05/31/22 documented as of this encounter
--- OUTSIDE RECORDS SUMMARY | 2024-03-18 22:03 | External Medical Summary | Summary of Care ---
Author Name Unknown Organization [facility] Address [address] [place] [address] Phone [phone] Care Team Providers Care Steeler Name Role Phone Jose Lockett MD Primary Care Provider [phone] Reason for Visit * Reason Comments NEW PATIENT Possible infected cy st, from inner upper thigh, did drain, * Evaluate & Treat - Unlimited Visits (Within 10 days (routine)) - Pending Review Specialty Diagnoses / Procedures Referred By Carter diaz Referred To Contact General Surgery Diagnoses Infected cyst of skin Jose Lockett MD [address] [place] [address] Referral ID Status Reason Start Date Expiration Date Visits Requested Visits Authorized [id number] Pending Review Specialty Services Required 12/02/[phone] Encounter Details Date Type Department Care Team (Late st Contact Info) Description 12/07/2023 2:30 PM EDT Office Visit General Surgery, [facility] [address] [facility] [place] [address] Thanh Puentes MD [address] [facility] [place] [address] Infected cyst of skin* Allergies Active Allergy Reactions Criticality Noted Date [...] ons:Spondylosis of lumbar region without myelopathy or radiculopathy,Aviation Safety Officer danie bilateral low back pain without sciatica [...] mRNA, LNP-s, No Pre serve, 2-Dose Series ([employer]) 08/25/2020,08/04/2020 COVID-19, LNP-s, No Preserve , Rigo-sucrose, [...] on file documented as of this encounter Last Filed Vital Signs Vital Sign Reading Time Taken Comments Blood Pressure 116/65 12/07/2023 2:27 PM EDT Pulse 107 12/07/2023 2:27 PM EDT Temperature 36.6 C (97.9 F) 12/07/2023 2:27 PM ED T Respiratory Rate - - Oxygen Saturation - - Inhaled Oxygen Concentration - - Weight 83.2 kg (183 lb 6.4 oz) 12/07/2023 2:27 P M EDT Height 180.3 cm (5' 10.98") 12/07/2023 2:27 PM E DT per pt Body Mass Index 25.59 12/07/2023 2:27 PM EDT documented in this encounter Progress Notes * Thanh Puentes MD - 12/07/2023 2:28 PM EDT HISTORY AND PHYSICAL EXAMINATION - General Surgery Name: Jorge Espino Date: 12/07/2023 Time: 2:28 PM Subjective PRESENTING PROBLEM: infected cyst HISTORY OF PRESENT ILLNESS: Jorge Espino is a 33 year-old male who is referral for consult infected cyst on left thigh by Jose Flynn. Pt presents with 3 days history infected cyst on left thigh. And later on some drainage from infected area. Pt applied bacitracin on infected area. Now the infection is gone. No redness or tenderness. Pt denies fever or chills. PROBLEM LIST: Patient Active Problem List Diagnosis Chronic allergic rhinitis JUN (generalized anxiety disorder) Overweight (BMI 25.0-29.9) Chronic back pain Dermoid cyst Plantar wart DDD (degenerative disc disease), lumbar PAST MEDICAL HISTORY: Past Medical History: Diagnosis Date Chronic back pain 06/19/2022 Overweight (BMI 25.0-29.9) 06/19/2022 PAST SURGICAL HISTORY: Past Surgical History: Procedure Laterality Date L-/S-SPINE PARAVERTEBRAL FACET INJ,1 LEVEL Bilateral 09/23/2023 L-/S-SPINE PARAVERTEBRAL FACET INJ, 1 LEVEL performed by Georgi Casas DO at OR [facility] L-/S-SPINE PARAVERTEBRL FACET INJ,2 LEVELS Bilateral 09/23/2023 L-/S-SPINE PARAVERTEBRAL FACET INJ, 2 LEVELS performed by Georgi Casas DO at OR [facility] FAMILY HISTORY: Family History Problem Relation Name Age of Onset Hypertension Mother Hypertension Father ALS Grandfather (Maternal) 80 Lung cancer Grandmother (Paternal) 65 Bipolar Disorder Grandmother (Paternal) Colon cancer Grandfather (Paternal) 78 SOCIAL HISTORY: Social History Tobacco Use Smoking status: Former Current packs/day: 0.00 Types: Cigarettes Quit date: 2010 Years since quittin.6 Passive exposure: Past Smokeless tobacco: Never Vaping Use Vaping status: Every Day Substance Use Topics Alcohol use: Yes Comment: occ Drug use: Yes Types: Marijuana Comment: medical delvis CURRENT MEDICATIONS: Note that discontinued continue to display for 24 hours. Ordered medications to be given in the future also display. Current Outpatient Medications Medication Sig Dispense Refill [...] No current facility-administered medications for this visit. ALLERGIES: Baclofen, Diclofenac sodium [diclofenac], Trazodone, and Mixed grasses ROS: Review of Systems Respiratory: Chronic allergic rhinitis Musculoskeletal: Chronic back pain, DDD (degenerative disc disease), lumbar Skin: Dermoid cyst Psychiatric/Behavioral: JUN (generalized anxiety disorder) Objective PHYSICAL EXAMINATION: Most Recent Vital Signs: BP 116/65 | Pulse 107 | Temp 36.6 C (97.9 F) | Wt 83.2 kg (183 lb 6.4 oz) | BMI 25.58 kg/m | BSA 2.04 m Physical Exam Constitutional: Appearance: Normal appearance. HENT: Head: Normocephalic and atraumatic. Cardiovascular: Rate and Rhythm: Normal rate and regular rhythm. Musculoskeletal: Cervical back: Normal range of motion and neck supple. Skin: General: Skin is warm and dry. Comments: The infection on left thigh is gone. No redness or tenderness, no drainage. Neurological: Mental Status: He is alert. LABS: Labs reviewed as indicated below: none IMAGING: N/A IMPRESSION and PLAN: IMP: healed infected cyst Assessment: Jorge Espino is a 33 year-old male who is referral for consult infected cyst on left thigh by Jose Lebron. Pt presents with 3 days history infected cyst on left thigh. And later on some drainage from infected area. Pt applied bacitracin on infected area. Now the infection is gone.No redness or tenderness. Pt denies fever or chills. Plan. -The infection is gone. -No further treatment. -F/U prn PRIMARY CARE PHYSICIAN: Jose Lockett MD documented in this encounter Nursing Notes * Subha Hinds LPN - 12/07/2023 2:28 PM EDT Patient identified by name and date of . Chief Complaint Patient presents with NEW PATIENT Possible infected cyst, from inner upper thigh, did drain, Pt stating that he made the appt 4 days ago, it drained some recently and now its way smaller than it was- changed over the last 2 days. documented in this encounter Plan of Treatment Upcoming Encounters Date Type Department Care Team (Late st Contact Info) Description 12/14/2023 2:20 PM EDT Office Visit Dermatology [address] [place] [address] Vee Olguin PA-C [address] [place] [address] [place] [address] Scheduled Referrals Name Type Priority Associated Diagnoses Orde r Schedule SURGERY REFERRAL OP Referral Within 10 da ys (routine) Infected cyst of skin Ordered: 12/02/2023 Health Maintenance Due Date Last Done Comments Hepatitis B Vaccine (2 of 3 - 3-dose series) 12/26/1996 11/28/1996 HIV Screening 2004 Hepatitis C Screening 07/01/2007 COVID-19 Vaccine (4 - 2022-2 4 season) 2022 03/31/2021, 08/25/2020, 08/04/2020 Influenza [...] as of this encounter Visit Diagnoses Diagnosis Infected cyst of skin- Primary Sebaceous cyst documented in this encounter Care Teams Steeler Relationship Specialty Start Date End Date Jose Lockett MD [address] [place] [address] PCP - General Internal Medicine 05/31/22 documented as of this encounter
--- OUTSIDE RECORDS SUMMARY | 2024-03-18 22:03 | External Medical Summary | Summary of Care ---
Author Name Unknown Organization [facility] Address [address] [facility] [place] [address] Phone [phone] Care Team Providers Care Traffic Engineer Name Role Phone Jose Lockett MD Primary Care Provider [phone] Reason for Visit * Reason Onset Date Comments Follow Up 10/24/2023 Encounter Details Date Type Department Care Team (Late st Contact Info) Description 10/24/2023 11:00 AM EDT Scheduled Telephone Interventional [facility], [facility] [address] [place] [address] [facility] Nurse Phone Call Interventional Pain [facility] [address] [place] [address] Arrived Allergies Active Allergy Reactions Criticality Noted Date Comments Baclofen Diarrhea,Nausea/vomi ting, Tachycardia 2023 Diclofenac Nausea/vomiting,Unknown 2023 Mixed Grasses Low 05/31/2022 Sinus drainage Trazodone 03/11/2023 Severe sick feeling documented as of this encounter (statuses as of 10/24/2023) Medications Medication Sig Dispensed Refills Start Date [...] as of this encounter (statuses as of 10/24/2023) Active Problems Problem Noted Date Diagnosed Date DDD (degenerative disc disease), lumbar 12/28/19 23 Dermoid cyst 08/10/2022 Plantar wart 08/10/2022 Overweight (BMI 25.0-29.9) 06/19/2022 Chronic back pain 06/19/2022 Chronic allergic rhinitis 05/31/2022 JUN (generalized anxiety disorder) 05/31/2022 documented as of this encounter (statuses as of 10/24/2023) Resolved Problems Problem Noted Date Diagnosed Date Resolved Date Sciatica of left side 05/31/20222022 documented as of this encounter (statuses as of 10/24/2023) Immunizations Name Administration Dates Next Due COVID-19 mRNA, LNP-s, No Pre serve, 2-Dose Series ([employer]) 08/25/2020,08/04/2020 COVID-19, LNP-s, No Preserve , Rigo-sucrose, [...] filedocumented as of this encounter Care Teams Traffic Engineer Relationship Specialty Start Date End Date Jose Lockett MD [address] [place] [address] PCP - General Internal Medicine 05/31/22 documented as of this encounter
--- OUTSIDE RECORDS SUMMARY | 2024-03-18 22:03 | External Medical Summary | Summary of Care ---
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 [M47.816] Procedures L-/S-SPINE PARAVERTEBRAL FACET INJ,1 LEVEL L-/S-SPINE PARAVERTEBRL FACET INJ,2 LEVELS L-/S-SPINE PARAVERTEBRAL FACET INJ, 1 LEVEL L-/S-SPINE PARAVERTEBRAL FACET INJ, 2 LEVELS Georgi Casas DO [address] [place] [address] Or [facility] [address] [place] [address] Referral ID Status Reason Start Date Expiration Date Visits Re quested Visits Authorized [id number] Encounter Details Date Type Department Care Team (Latest Contact Info) Description 09/23/2023 10:02 AM EDT - 09/23/2023 11:33 AM EDT Hospital Encounter OR [facility], Operating Room [facility] [address] [place] [address] Georgi Casas DO [address] [place] [address] Discharge Disposition: Home - Self Care Allergies Active Allergy Reactions Criticality Noted Date Comments Baclofen Diarrhea,Nausea/vomi ting, Tachycardia 2023 Diclofenac Nausea/vomiting,Unknown 2023 Mixed Grasses Low 05/31/2022 Sinus drainage Trazodone 03/11/2023 Severe sick feeling documented as of this encounter (statuses as of 09/23/2023) Medications Medication Sig Dispensed Refills Start Date [...] as of this encounter (statuses as of 09/23/2023) Active Problems Problem Noted Date Diagnosed Date DDD (degenerative disc disease), lumbar 12/28/19 23 Dermoid cyst 08/10/2022 Plantar wart 08/10/2022 Overweight (BMI 25.0-29.9) 06/19/2022 Chronic back pain 06/19/2022 Chronic allergic rhinitis 05/31/2022 JUN (generalized anxiety disorder) 05/31/2022 documented as of this encounter (statuses as of 09/23/2023) Resolved Problems Problem Noted Date Diagnosed Date Resolved Date Sciatica of left side 05/31/20222022 documented as of this encounter (statuses as of 09/23/2023) Immunizations Name Administration Dates Next Due COVID-19 mRNA, LNP-s, No Pre serve, 2-Dose Series ([employer]) 08/25/2020,08/04/2020 COVID-19, LNP-s, No Preserve , Rigo-sucrose, Ages 12+ ([employer]) 03/31/2021 Hepatitis B, 0-19 yrs 11/28/1996 MMR [...] money to get more. Never true 12/26/2022 Sex and Gender Information Value Date Recorded Sex Assigned at Male 08/17/2022 12:57 PM EDT Gender Identity Male 12/26/2022 9:32 AM EDT Sexual Orientation Straight 08/17/2022 12 :57 PM EDT Job Start Date Occupation Industry Not on file Not on file Not on file documented as of this encounter Last Filed Vital Signs Vital Sign Reading Time Taken Comments Blood Pressure 152/90 09/23/2023 11:28 AM EDT Pulse 50 09/23/2023 11:28 AM EDT Temperature 36.1 C (97 F) 09/23/2023 10:47 AM EDT Respiratory Rate 18 09/23/2023 11:28 AM EDT Oxygen Saturation 96% 09/23/2023 11:28 AM EDT Inhaled Oxygen Concentration - - Weight - - Height - - Body Mass Index - - documented in this encounter Discharge Instructions * Discharge Instr - AVS* Georgi Casas, - 09/23/2023 11:27 AM EDT [facility] [address] [facility] [place] [address] Discharge Date: 09/23/2023 [facility] at [phone] during business hours. For after-hours emergencies call 911. Your attending physician at the time of your discharge was: Georgi Casas DO [address] [place] [address] The information below provides you with the [...] unless otherwise instructed by your family physician, customs guard or the anticoagulation clinic. Additional Instructions: None Driving: You may resume driving in 12-24 hours if no weakness is noted . Date you may return to work or school: N/A Follow Up: Please make a follow-up telephone appointment with our nursing staff in 4-6 weeks. documented in this encounter Progress Notes * Georgi Casas DO - 09/23/2023 11:28 AM EDT [facility] [place] [address] [facility] [address] OUTPATIENT SURGERY DISCHARGE SUMMARY NOTE Name: Jorge Espino Location: OR [facility]/OR Date: 09/23/2023 Time: 11:28 AM Surgery Date: 09/23/2023 Procedure: L-/S-SPINE PARAVERTEBRAL FACET INJ, 1 LEVEL, L-/S-SPINE PARAVERTEBRAL FACET INJ, 2 LEVELS Bilateral Bilateral Surgeon: Georgi Casas DO Discharge Diagnosis: lumbar spondylosis After examination of this patient, I have determined he is ready for discharge to home when the patient meets criteria. Discharge instructions were given to the patient. Georgi Casas DO OR [facility], Operating Room [facility] [address] [facility] [place] [phone] documented in this encounter H&P Notes * Georgi Casas DO - 09/23/2023 11:03 AM EDT Interventional Pain H&P Subjective: History of Present Illness: Jorge Espino is a 33 year old year-old male with a past medical history significant for lumbar spondylosis who is presenting for bilateral L3/4 and L4/5 facet joint injections to improve his painand function. his pain is essentially unchanged since [...] for: "CREATININE" No results found for: "HGBA1C", "XZRD1QQCR" No results found for: "AMPHETAMINE", "BARBITURATES", "BENZODIAZEPINES", "BUPRENORPHINE", "METHADONE", "OPIATES", "OXYCODONE", "PHENCYCLIDINE", "CANNABINOIDS", "TOX SCREEN", "URINE", "TOX SCREEN-SERUM", "TOX SCREEN, URINE" Imaging: I personally reviewed the imaging and my findings were . MRI L SPINE WO CONTRAST Narrative: EXAM MRI L SPINE WO CONTRAST-07/13/2023 12:14 pm HISTORY 33 y/o M, Low back pain; Neurologic deficit, non-traumatic; LE numbness/paresthesia; No increasing/persistent LE numbness/paresthesia COMPARISON None. TECHNIQUE Multiplanar, multisequence magnetic resonance images of the lumbar spine were obtained without intravenous contrast. FINDINGS There are 5 non rib-bearing lumbar type segments. No evidence of an acute fracture or traumatic malalignment. Straightening of lumbar lordosis. Multiple prominent Schmorl's nodes at T12-S1, involving the endplates of all lumbar vertebral bodies. Associated bone marrow signal abnormality along the endplates of varying chronicity, with edema most pronounced at the L2 vertebral body inferior endplate. Lumbar vertebral body height is maintained allowing for endplate irregularity. Multilevel intervertebral disc height loss and disc desiccation, with T2 signal hyperintensity of the disc at L1-L2. Degenerative changes by level: T12-L1: No significant spinal canal or neuroforaminal narrowing. L1-L2: Small disc bulge without significant spinal canal or neuroforaminal narrowing. L2-L3: Small disc bulge without significant spinal canal or neuroforaminal narrowing. L3-L4: Small disc bulge and mild facet arthropathy without significant spinal canal or neuroforaminal narrowing. L4-L5: Disc bulge, ligamentum flavum thickening, and facet arthropathy contributes to mild spinal canal narrowing and mild bilateral neuroforaminal narrowing. L5-S1: Small disc bulge, ligamentum flavum thickening, and facet arthropathy contributes to mild bilateral neuroforaminal narrowing. No significant spinal canal narrowing. The spinal cord terminates in a normal position at the L2 level. The conus medullaris and cauda equina are within normal limits. Paravertebral and paraspinal soft tissues are within normal limits. Impression: IMPRESSION Multiple prominent Schmorl's nodes, involving every lumbar level, with associated bone marrow edemamost pronounced at the inferior endplate of L2. Other degenerative changes including multilevel disc bulges and facet arthropathy, contributing to mild spinal canal narrowing and mild neuroforaminal narrowing, as detailed. Objective Physical Exam: Vital Signs: BP 108/82 | Pulse 74 | Temp 36.1 C (97 F) (Tympanic) | Resp 16 | SpO2 97% There isno height or weight on file to calculate BMI. General: No apparent distress. Eyes: pupils equal and round, sclera white, pupils midsize. ENT: mucous membranes moist Resp: Non-labored breathing CV: Extremities warm and well-perfused. Psych: Oriented; affect warm, insight good. Skin: No rashes or lesions appreciated on exposed skin Neuromuscular Exam: Facet loading pos, SLR neg, TTT over lumbar spine Assessment: Jorge is a 33 year old year-old male with: Lumbar spondylosis Plan: The patient is undergoing therapeutic bilateral LL3/4 and L5/S1 facet joint injections today to alleviate his pain and improve his function. Exam under fluoro to confirm. The risks, benefits and alternatives to the procedure were reviewed at length and the patient was provided the opportunity to ask questions which were answered to their voiced understanding. Following this comprehensive discussion, the patient opted to proceed. The patient was consented to the procedure following this comprehensive conversation. Georgi Casas DO OR [facility], Operating Room [address] [phone] documented in this encounter Nursing Notes * Shila Dixon RN - 09/23/2023 11:32 AM EDT Pt tolerated procedure well. Pt has been visited by Dr. Casas. Discharge instructions reviewed with pt and pt has verbalized understanding of these teachings. Pt ready for discharge. * Rebekah Morales RN - 09/23/2023 11:25 AM EDT Band aid applied to area. Patient transferred to PACU 2 via wheelchair * Rebekah Morales RN - 09/23/2023 11:18 AM EDT Patient tolerating pain management injection well. documented in this encounter OR Notes * OR Surgeon - Georgi aCsas DO - 09/23/2023 11:25 AM EDT LUMBAR FACET JOINT INJECTION DATE: 09/23/2023 PHYSICIAN: Georgi Casas DO PREOPERATIVE DIAGNOSIS: Lumbar spondylosis with lumbar facet arthropathy POSTOPERATIVE DIAGNOSIS: Lumbar spondylosis with lumbar facet arthropathy PROCEDURE PERFORMED: L3/4 and L4/5 facet joint injections, bilateral, with local anesthetic and corticosteroid. Exam under fluoroscopy to confirm painful levels. Fluoroscopy for precise needle localization. ANESTHESIA: Local infiltration with lidocaine. MONITORS: Automatic blood pressure cuff and pulse oximetry There was no him assistant, EBL or drains placed during this procedure. INDICATIONS: We had the pleasure of seeing Jorge Espino ([id number]) [facility]. Jorge Espino is a 33 year old year-old male who has a history of lumbar spondylosis with facet arthropathy. The patient is here today for facet joint injections. MEDICATIONS: Current Facility-Administered Medications Medication Dose Route Frequency Provider Last Rate Last Admin bupivacaine HCl (Sensorcaine) 0.5 % (PF) inj 7.5 mg 1.5 mL Injection Once Georgi Casas DO ALLERGIES: Review of patient's allergies indicates: Allergen [...] tissues, and organs, paralysis, increased pain, allergic reaction, blood pressure instability, seizures, heart block, headaches, increase in blood sugar, worsening of glaucoma, blindness, manic episodes, mood instability, and . Alternatives to the procedure werealso explained and include: do nothing, surgery, medications, [...] right side. Additional needles were placed at L4/5 facet joint. The needle positions wereverified in AP and lateral views. After negative aspiration for [...] no weakness noted. Georgi Casas DO OR [facility], Operating Room [address] [place] [address] documented in this encounter Plan of Treatment Upcoming Encounters Date Type Department Care Team (Late st Contact Info) Description 10/24/2023 11:00 AM EDT Scheduled Telephone [facility], [facility] [address] [place] [address] Jann, Nurse Phone Call Interventional Pain [place] [address] [place] [address] Scheduled Procedures Name Priority Associated Diagnoses Date/Ti me L-/S-SPINE PARAVERTEBRAL FACET INJ, 1 LEVEL Spondylosis of lumbar region without myelopathy or radiculopathy 09/23/2023 11:13 AM EDT L-/S-SPINE PARAVERTEBRAL FACET INJ, 2 LEVELS Spondylosis of lumbar region without myelopathy or radiculopathy 09/23/2023 11:13 AM EDT Health Maintenance Due Date Last Done Comments Hepatitis B (2 of 3 - 3-dose series) 12/26/1996 11/28/1996 HIV Screening 2004 Hepatitis C Screening 07/01/2007 COVID-19 Vaccine (4 - 2022-2 4 season) 2022 03/31/2021, 08/25/2020, 08/04/2020 Influenza Vaccine (FLU shot) (Season Ended) 2023 Depression Screening 03/07/2024 03/07/2023 DTaP,Tdap,and Td Vaccines (3 - Td or Tdap) 09/28/2024 09/28/2014, 06/02/2011 GARDASIL-HPV IMMUNIZATION SERIES Aged Out No longer eligible b ased [...] Comments FLUORO INTERVENTIONAL PAIN PROCEDURE NONBILLABLE Routine 09/23/2023 11:31 AM EDT documented in this encounter Results * FLUORO INTERVENTIONAL PAIN PROCEDURE NONBILLABLE (09/23/2023 11:31 AM EDT) Narrative Scheduling, Silent - 09/23/2023 11:32 AM EDT This procedure will not be read by a Radiologist. Please see operative note. Georgi Casas DO RAD FLUOROSCOPY documented in this encounter Administered Medications Inactive Administered Medications - up to 3 most recent administrations Medication Order MAR Action Action Date Dose Rate Site lidocaine 1 % inj 15 mg 15 mg (1.5 mL), Subcutaneous, ONCE, On Tue09/23/23 at 1115, For 1 dose, Bilateral Given 09/23/2023 11:17 AM EDT 5 mL Other-Specify Triamcinolone Acetonide (Kenalog) 40 MG/ML inj 40 mg 40 mg, Intra-Articular, ONCE, On Tue09/23/23 at 1145, For 1 dose Given 09/23/2023 11:19 AM EDT 80 mg documented in this encounter Active and Recently Administered Medications Times are shown in EDT. Scheduled Medication Order 09/21/2023 09/22/2023 09/23/2023 bupivacaine HCl (Sensorcaine) 0.5 % (PF) inj 7.5 mg 7.5 mg (1.5 mL), Injection, ONCE, On Tue09/23/23 at 1115, For 1 dose, Bilateral 1115 (Not Given - Pr ovider: Rebekah Morales RN - Reason: Order Clarified) lidocaine 1 % inj 15 mg (COMPLETED) 15 mg (1.5 mL), Subcutaneous, ONCE, On Tue09/23/23 at 1115, For 1 dose, Bilateral 1117 (Given - Provid er: Rebekah Morales RN - Comment: divided doses) Triamcinolone Acetonide (Kenalog) 40 MG/ML inj 40 mg (COMPLETED) 40 mg, Intra-Articular, ONCE, On Tue09/23/23 at 1145, For 1 dose 1119 (Given - Provid er: Rebekah Morales RN) documented in this encounter Care Teams 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
[2024-03-18] MEDS: LIDOCAINE 5% 1 PATCH TD SCH (23:29)
--- OUTSIDE RECORDS SUMMARY | 2024-03-18 23:59 | External Medical Summary | Summary of Care ---
Author Name Unknown Organization [facility] Address [address] [facility] [address] Phone [phone] Care Team Providers Care Logistics Intern Name Role Phone Jose Lockett MD Primary Care Provider [phone] Reason for Visit * Reason Onset Date Comments Forms Request 03/01/2024 Encounter Details Date Type Department Care Team ([facility] st Contact Info) Description 03/01/[address] [place] [address] Jose Lockett MD [address] [place] [phone] Forms Request Allergies Active Allergy Reactions Criticality Noted Date [...] Capsule by mouth in the morning. Active documented as of this encounter (statuses [...] mRNA, LNP-s, No Pre serve, 2-Dose Series ([employer]) 08/25/2020,08/04/2020 COVID-19, LNP-s, No Preserve , Rigo-sucrose, Ages 12+ ([employer]) 03/31/2021 Hepatitis B, 0-19 yrs 11/28/1996 MMR [...] No 03/16/2024 Does the household have a [employer] [place] source of income? (Household - for ages [...] encounter Miscellaneous Notes * Telephone Encounter - Jose Lockett MD - 03/16/2024 3:42 PM EST Called pt , no answer Was filling up FMLA paper form , but noticed that current new form ( attached from recent my G ) isdifferent form I printed out last time FMLA form but it is not the same and information can't be same Will need to discuss with pt again whenever he has time Please ask him to fill up most of information on the new paper form if he can and drop it off Or I will try to call him again * Telephone Encounter - Alexa Sanchez OSA - 03/01/2024 8:36 AM EST Patient will be sending over paperwork for Dr Lockett to complete. documented in this encounter Plan of Treatment Upcoming Encounters Date Type Department Care Team (Late st Contact Info) Description 03/19/2024 11:30 AM EST Office Visit Interventional Pain Center, [facility] [address] [place] [address] Kami Sparrow PA-C [address] [place] [address] 04/05/2024 2:00 PM EST Scheduled Telephone Interventional Pain [place], [facility] [address] [place] [address] Nurse Jann Phone Call Interventional Pain [facility] [address] [place] [address] Health Maintenance Due Date Last Done Comments [...] filedocumented as of this encounter Care Teams Logistics Intern Relationship Specialty Start Date End Date Jose Lockett MD [address] [place] [address] PCP - General Internal Medicine 05/31/22 documented as of this encounter
[2024-03-19 07:45] LABS: Creatinine Clr Calc Pharmacy 131.3 ml/min
[2024-03-19] MEDS ORDERED: ACETAMINOPHEN 500 MG TAB PO PRN (09:35)
[2024-03-19] MEDS: DOCUSATE SODIUM/SENNA 50/8.6MG TAB PO SCH (10:17)
--- NOTE | 2024-03-19 12:17 | Hospitalist Progress Note ---
Date of Service March 19, 2024 Assessment & Plan (1) Severe low back pain: Plan: This is a 33 yr old M who has a significant PMH of chronic back pain, chronic allergic rhinitis, JUN who presents to ED 2/2 severe low back pain --Lumbar spine MRI 1. Spondylodegenerative lumbar disc disease. 2. Multiple Schmorl's nodes. 3. Modic I and II marrow changes are seen, with no other remarkable marrow changes. 4. Associating disc edema and wide zones of bone marrow edema at the L1 through L5 vertebrae with appreciable enhancement after Gd-DTPA injection. Findings suggest aseptic/septic spondylodiscitis. Detailed clinical, laboratory correlation and follow-up are recommended as appropriate. 5. L2-L3: There are 2.3 mm subarticular protrusions. 6. L3-L4: There are 2.5 mm subarticular protrusions. . L4-L5: There is a 2.4 mm annular bulge and 4.4 mm central herniation. 8. L5-S1: There is a 2.5 mm annular bulge and 4.2 mm central herniation. 9. Multilevel lumbar disc pathologies at the L2-L3, L3-L4, L4-L5 and L5-S1 levels with effects exerted upon the central spinal canal, subarticular recesses, and neural foramina with impingement of the emerging nerve roots. Buckled ligamenta flava and arthropathic facet joints augment effects. MRI indicative of septic spondylodiscitis continue IV Vanco and rocephin CRP and Procal normal infectious disease consult ordered Dr. Baron with orthospine on board and is planning on reviewing prior MRI from [facility] to compare Pain control with scheduled APAP, ICE/HEAT, lidocaine patch, scheduled tramadol, scheduled flexeril, PRN IV toradol for mild-mod and pRN IV diluadid for severe pain DVT ppx: encourage ambulation FULL CODE Dispo: to remain admitted I spent a total of 46 minutes reviewing notes, outpatient records, labs, medication, coordinating, documenting and providing care for this patient excluding time spent in the performance of separately billed services. Admission and Anticipated Discharge Date Admission Date: March 16, 2024 Supervising Physician Co-Signing Physician Notes I have seen and discussed the case with the collaborating advanced practitioner. I agree with the above H&P. I have reviewed and confirmed the patients medical history, the findings on physical examination, and the patients diagnosis and treatment plan with Chet BIANCHI and agree with the information documented. Reviewed ID notes--IV vanc/CTX for now IR is unsure if infectious, no place for biopsy at this time Pending Ortho Spine review I spent a total of 15 minutes coordinating, documenting, and providing care for this patient excluding time spent in the performance of separately billed services. All of the aforementioned completed outside of collaborating with the assigned advanced practitioner for a full treatment plan. I have reviewed the advanced practitioner's documentation, and I agree with, and take responsibility for the plan of care Subjective Pt reports flexeril helped him relax, but late last night his low back started spasming again. This resulted in him having to sit upright while sleeping. He recently received a dose of IV dilaudid. He has not moved his bowels in 3 or so days and normally he goes every day. He reports his pain is R low back/buttock region. There is not radiation of pain and is described as "spasming, squeezing." He denies n/t or incontinence of urine/stool. He reports having a steroid injection late summer which worked well. He presented to have additional inj in february and ever since has been having significant pain to the point he has not been able to function. Review of Systems Review of Systems: All systems reviewed & are unremarkable except as noted in HPI & below Physical Exam Physical Exam: Gen: WD/WN, NAD, A&O x3 HEENT: Normocephalic, atraumatic, conjunctivae moist, sclerae anicteric, mucous membranes moist. Lung: Clear to Auscultation bilaterally, no wheezes/rales/rhonchi Heart: Regular rate, regular rhythm, no murmurs, rubs, or gallops Abdomen: Soft, NT, ND +BS x 4 Extremities: No edema, pain to palp to Rlower back paraspinal region Skin: Warm, no rash, negative turgor. Results & Data Results & Data Vital Signs (Past 12 Hours) Vital Signs Temp Pulse Resp BP Pulse Ox O2 Del Method 03/19/24 07:44 36.5 C 74 16 112/72 96 Room Air Laboratory Results BMP 03/19/24 06:43 Creatinine 0.87 Medications Administered Current Inpatient Medications Acetaminophen (Acetaminophen 500 Mg Tab) 1,000 mg PO Q8H PRN PRN Reason: pain/fever Stop: 04/18/24 09:34 Cyclobenzaprine HCl (Cyclobenzaprine Hcl 10 Mg Tab) 10 mg PO TID [facility] Stop: 04/17/24 13:59 Last Admin: 03/19/24 08:27 Dose: 10 mg Hydromorphone HCl (Hydromorphone Inj 0.5 Mg/0.5 Ml Syr) 0.5 mg IV Q6H PRN PRN Reason: Severe Pain (Scale 7, 8, 9,10) Stop: 03/31/24 00:15 Last Admin: 03/19/24 07:51 Dose: 0.5 mg Ceftriaxone Sodium (Rocephin) 2,000 mg in 50 mls @ 100 mls/hr IV Q24H [facility] Stop: 04/28/24 20:59 Last Infusion: 03/18/24 20:55 Dose: Infused Vancomycin HCl 1,750 mg/ (Sodium Chloride) 535 mls @ 200 mls/hr IV Q12H [facility] Stop: 04/28/24 07:59 Last Infusion: 03/19/24 11:40 Dose: Infused Ketorolac Tromethamine (Ketorolac 30 Mg/Ml Vial) 30 mg IV Q6H PRN PRN Reason: Mild-Mod Pain (Scale 1-6) Lidocaine (Lidocaine 5% 1 Patch) 1 patch TD HS [facility] Stop: 04/17/24 23:09 Last Admin: 03/18/24 23:29 Dose: 1 patch Miscellaneous (Remove Lidoderm Patch) 1 each N/A DAILY@0900 [facility] Stop: 04/18/24 10:59 Last Admin: 03/19/24 11:46 Dose: 1 each Miscellaneous Information (Vancomycin Consult Active) 1 each N/A UD PRN PRN Reason: Consult Stop: 04/15/24 20:58 Ondansetron HCl (Ondansetron Inj 2 Mg/Ml 2 Ml Vial) 4 mg IV Q6H PRN PRN Reason: Nausea And Vomiting Stop: 04/16/24 13:49 Last Admin: 03/18/24 12:12 Dose: 4 mg Polyethylene Glycol (Polyethylene (Miralax) 17 Gm Pack) 17 gm PO DAILY PRN PRN Reason: Constipation Stop: 04/16/24 00:15 Last Admin: 03/19/24 08:27 Dose: 17 gm Senna/Docusate Sodium (Docusate Sodium/Senna 50/8.6mg Tab) 1 tab PO BID [facility] Stop: 04/18/24 09:44 Last Admin: 03/19/24 10:17 Dose: 1 tab Tramadol HCl (Tramadol Hcl 50 Mg Tablet) 50 mg PO Q6 [facility] Stop: 04/16/24 11:59 Last Admin: 03/19/24 12:13 Dose: 50 mg
--- NOTE | 2024-03-19 13:35 | Infectious Disease Consult ---
Date of Service March 19, 2024 Telehealth Information I performed this visit using a real-time telehealth connection between my location and the patients location ([facility]). After connecting through interactive tele-video, patient was identified by name and date of and/or wristband check.Patient (or authorized healthcare motor vehicle representative) was informed that this was a telemedicine visit and it was being conducted confidentially over secure lines. My office door was closed and no one else was present in the room with me.Patient (or authorized healthcare motor vehicle representative) provided consent to proceed with the visit, expressed an understanding of privacy and security of the telemedicine visit, and gave permission to have a hospital motor vehicle representative in the room in order to assist with the visit and to conduct portions of the visit, as needed. I informed the patient (or authorized healthcare motor vehicle representative) that I reviewed their record and presented the opportunity for them to ask any questions regarding the visit today. The patient agreed to participate. Assessment & Plan (1) Discitis of lumbar region: (2) Degenerative disc disease, lumbar: Plan Can continue on both IV vancomycin and IV ceftriaxone for now. If there is no plan for any surgical intervention, Please obtain IR guided biopsy of the spine to confirm diagnosis and help guide antibiotic treatment. Thank you for consulting Infectious Disease. We will continue to follow. THIS NOTE IS NOT BILLABLE I WAS UNABLE TO SEE THE PATIENT BECAUSE OF SOFTWARE ISSUES. History of Present Illness History of Present Illness Jorge is a 33 year old young man with medical history of allergic rhinitis, degenerative disc disease, generalized anxiety disorder and chronic low back pain who was admitted to [facility] on 03/16/2024 because of severe lower back pain. He has been having low back pain for over a year now which was controlled with steroid shot; however, in January the low back pain has gotten progressively worse and was associated with nausea, vomiting as well as subjective fever which prompted him to come to the emergency department. On presentation, he was afebrile and the rest of the vitals were within normal limits. Initial workup showed leukocytosis of 11.5 (ANC around 9) and lumbar spine MRI was suggestive of L1 through L5 possible spondylodiscitis. ID team was consulted for further recommendations and to help guide management. Allergies Allergy/AdvReac Type Severity Reaction Status Date / Time Sulfa (Sulfonamide Allergy Intermediate Itching Verified 03/16/24 19:11 Antibiotics) baclofen AdvReac Severe Anxiety Verified 03/16/24 19:11 diclofenac AdvReac Severe Anxiety Verified 03/16/24 19:11 Home Medications Medication Instructions Recorded Confirmed Type acetaminophen 500 mg tablet 1,000 mg PO Q6H PRN Pain 03/16/24 03/16/24 History (Acetaminophen Extra Strength) celecoxib 100 mg capsule 100 mg PO BID PRN Pain 03/16/24 03/16/24 History Patient History Social History Smoking Status: Former smoker Smoking End Date: 2010; Hx Alcohol Use: No Hx Substance Use: Yes (marijuana for >15 years, has medical card per pt) Preferred Language: Ukrainian Communication Ability: Effective [employer] Worker Required: No Beliefs That Will Affect Care: None Current Living Situation: Spouse Other Information That Helps Us Care for You: No Feels Safe at Home: Yes Safety Concerns: Feels Safe At This Time Assistive Devices: Cane Review of Systems Negative except for what was mentioned in the H&P. Physical Exam Could not be performed as the visit was conducted via TeleMed. Results & Data Vital Signs (Past 12 Hours) Vital Signs Temp Pulse Resp BP Pulse Ox O2 Del Method 03/19/24 07:44 36.5 C 74 16 112/72 96 Room Air Laboratory Results Microbiology: 03/16: 2 sets of blood culture negative to date Diagnostic Findings MRI lumbar spine on 03/16: 1. Spondylodegenerative lumbar disc disease. 2. Multiple Schmorl's nodes. 3. Modic I and II marrow changes are seen, with no other remarkable marrow changes. 4. Associating disc edema and wide zones of bone marrow edema at the L1 through L5 vertebrae with appreciable enhancement after Gd-DTPA injection. Findings suggest aseptic/septic spondylodiscitis. Detailed clinical, laboratory correlation and follow-up are recommended as appropriate. 5. L2-L3: There are 2.3 mm subarticular protrusions. 6. L3-L4: There are 2.5 mm subarticular protrusions. 7. L4-L5: There is a 2.4 mm annular bulge and 4.4 mm central herniation. 8. L5-S1: There is a 2.5 mm annular bulge and 4.2 mm central herniation. 9. Multilevel lumbar disc pathologies at the L2-L3, L3-L4, L4-L5 and L5-S1 levels with effects exerted upon the central spinal canal, subarticular recesses, and neural foramina with impingement of the emerging nerve roots.
[2024-03-19] MEDS: KETOROLAC 30 MG/ML VIAL IV PRN (16:40)
[2024-03-20] MEDS ORDERED: VANCOMYCIN LEVEL ONE (07:00)
[2024-03-20 09:29] LABS: BUN Creatinine Ratio 30.6 (10-20); Calcium 9.5 mg/dl (8.6-10.3); Creatinine Clr Calc Pharmacy 134.4 ml/min; Potassium 3.9 mmol/L (3.5-5.1)
--- NOTE | 2024-03-20 11:58 | Hospitalist Progress Note ---
Date of Service March 20, 2024 Assessment & Plan (1) Severe low back pain: Plan: This is a 33 yr old M who has a significant PMH of chronic back pain, chronic allergic rhinitis, JUN who presents to ED 2/2 severe low back pain --Lumbar spine MRI 1. Spondylodegenerative lumbar disc disease. 2. Multiple Schmorl's nodes. 3. Modic I and II marrow changes are seen, with no other remarkable marrow changes. 4. Associating disc edema and wide zones of bone marrow edema at the L1 through L5 vertebrae with appreciable enhancement after Gd-DTPA injection. Findings suggest aseptic/septic spondylodiscitis. Detailed clinical, laboratory correlation and follow-up are recommended as appropriate. 5. L2-L3: There are 2.3 mm subarticular protrusions. 6. L3-L4: There are 2.5 mm subarticular protrusions. . L4-L5: There is a 2.4 mm annular bulge and 4.4 mm central herniation. 8. L5-S1: There is a 2.5 mm annular bulge and 4.2 mm central herniation. 9. Multilevel lumbar disc pathologies at the L2-L3, L3-L4, L4-L5 and L5-S1 levels with effects exerted upon the central spinal canal, subarticular recesses, and neural foramina with impingement of the emerging nerve roots. Buckled ligamenta flava and arthropathic facet joints augment effects. MRI indicative of septic spondylodiscitis Pt initially placed on empiric Vanco/Rocephin CRP and Procal normal Dr. Baron with orthospine on board and is planning on reviewing prior MRI from [facility] to compare I spoke to EILEEN Almeida who also consulted with the radiologist on service. Pts images were reviewed and it was felt that there was no infection and it was more degeneration around the schmorl nodes. There was no suspicious disc that could be aspirated. I also discussed with Dr. Baron who also reviewed Mr. Espino's films and he concurred that this is chronic degenerative changes and his antibiotics were discontinued Pain control with scheduled APAP, ICE/HEAT, lidocaine patch, scheduled tramadol, scheduled flexeril, PRN IV toradol for mild-mod and pRN IV diluadid for severe pain Pt is taking less Dilaudid, plan is to continue with work with PT in hopes to d/c home possibly tomorrow I will consult Pain management to see if they feel a TPI would be beneficial for this pt Pt requesting hospital bed so he will be able to have a first floor set up: The beneficiary has a medical condition which requires positioning of the body in ways not feasible with an ordinary bed. Elevation of the head/upper body less than 30 degrees does not usually require the use of a hospital bed and requires frequent changes in body position and/or has an immediate need for a change in body position. DVT ppx: encourage ambulation FULL CODE Dispo: to remain admitted, possible d/c tomorrow I spent a total of 50 minutes reviewing notes, outpatient records, labs, medication, coordinating, documenting and providing care for this patient excluding time spent in the performance of separately billed services. Admission and Anticipated Discharge Date Admission Date: March 16, 2024 Supervising Physician Co-Signing Physician Notes I have seen and discussed the case with the collaborating advanced practitioner. I agree with the above PN I have reviewed and confirmed the patients medical history, the findings on physical examination, and the patients diagnosis and treatment plan with Chet BIANCHI and agree with the information documented. Low suspicion for infection Will return home with home health tomorrow I spent a total of 15 minutes coordinating, documenting, and providing care for this patient excluding time spent in the performance of separately billed services. All of the aforementioned completed outside of collaborating with the assigned advanced practitioner for a full treatment plan. I have reviewed the advanced practitioner's documentation, and I agree with, and take responsibility for the plan of care Subjective Pt reports improvement of pain/spasm this morning. He feels the consistent flexeril has been helping. He has been trying to not take the dilaudid as he knows he can't go home on this. He denies f/c/s, chest pain, sob, n/v/d. He is passing gas, but not BM yet. He is requesting [facility] paperwork be filled out. Review of Systems Review of Systems: All systems reviewed & are unremarkable except as noted in HPI & below Physical Exam Physical Exam: Gen: WD/WN, NAD, A&O x3 HEENT: Normocephalic, atraumatic, conjunctivae moist, sclerae anicteric, mucous membranes moist. Lung: Clear to Auscultation bilaterally, no wheezes/rales/rhonchi Heart: Regular rate, regular rhythm, no murmurs, rubs, or gallops Abdomen: Soft, NT, ND +BS x 4 Extremities: No edema, pain to palp to Rlower back paraspinal region, improvement in extension/flexion of the torso today Skin: Warm, no rash, negative turgor. Results & Data Results & Data Vital Signs (Past 12 Hours) Vital Signs Temp Pulse Resp BP Pulse Ox O2 Del Method 03/20/24 10:15 66 16 125/66 94 Room Air 03/20/24 07:42 36.5 C 87 16 120/83 95 Room Air Laboratory Results I have independently reviewed and interpreted patient's bmp Medications Administered Current Inpatient Medications Acetaminophen (Acetaminophen 500 Mg Tab) 1,000 mg PO Q8H PRN PRN Reason: pain/fever Stop: 04/18/24 09:34 Cyclobenzaprine HCl (Cyclobenzaprine Hcl 10 Mg Tab) 10 mg PO TID [facility] Stop: 04/17/24 13:59 Last Admin: 03/20/24 08:40 Dose: 10 mg Hydromorphone HCl (Hydromorphone Inj 0.5 Mg/0.5 Ml Syr) 0.5 mg IV Q6H PRN PRN Reason: Severe Pain (Scale 7, 8, 9,10) Stop: 03/31/24 00:15 Last Admin: 03/19/24 14:22 Dose: 0.5 mg Ketorolac Tromethamine (Ketorolac 30 Mg/Ml Vial) 30 mg IV Q6H PRN PRN Reason: Mild-Mod Pain (Scale 1-6) Last Admin: 03/20/24 03:31 Dose: 30 mg Lidocaine (Lidocaine 5% 1 Patch) 1 patch TD HS [facility] Stop: 04/17/24 23:09 Last Admin: 03/19/24 20:53 Dose: 1 patch Miscellaneous (Remove Lidoderm Patch) 1 each N/A DAILY@0900 [facility] Stop: 04/18/24 10:59 Last Admin: 03/20/24 08:40 Dose: 1 each Ondansetron HCl (Ondansetron Inj 2 Mg/Ml 2 Ml Vial) 4 mg IV Q6H PRN PRN Reason: Nausea And Vomiting Stop: 04/16/24 13:49 Last Admin: 03/18/24 12:12 Dose: 4 mg Polyethylene Glycol (Polyethylene (Miralax) 17 Gm Pack) 17 gm PO DAILY PRN PRN Reason: Constipation Stop: 04/16/24 00:15 Last Admin: 03/19/24 08:27 Dose: 17 gm Senna/Docusate Sodium (Docusate Sodium/Senna 50/8.6mg Tab) 1 tab PO BID [facility] Stop: 04/18/24 09:44 Last Admin: 03/20/24 08:40 Dose: 1 tab Tramadol HCl (Tramadol Hcl 50 Mg Tablet) 50 mg PO Q6 [facility] Stop: 04/16/24 11:59 Last Admin: 03/20/24 06:04 Dose: 50 mg
[2024-03-21 07:45] VITALS: RESP 16; TEMP 98.1; O2SAT 96
--- NOTE | 2024-03-21 08:19 | Orthopedic Progress Note ---
Date of Service March 21, 2024 Subjective Patient seen and examined, he is in proved now, currently taking cyclobenzaprine and tramadol and feels he is making definite progress. No notable findings on examination. MRI review from July with comparison to MRI from hospital admission reveals the patient to have Modic changes involving the lumbar vertebral bodies centered around the Schmorl's nodes, no findings to suggest an infectious process. Impression: Aggravation of low back pain with some limited degenerative changes present. MRI imaging not revealing any findings suggestive of infectious process. Plan: Discussed with the patient that I think at this time once he is mobilized, he can be discharged. I related him that I did not have patient with Dr. Casas, he will follow-up with Dr. Casas, but my thoughts are that he might be a good candidate for the Intracept procedure and this was discussed with Dr. Casas, he is in agreement with this plan. I spent time explaining to briefly the nature of the procedure and hopefully this can get approved and applied to his clinical situation. Review of Systems All systems reviewed & are unremarkable except as noted in HPI & below. Physical Exam . Results & Data Results & Data Laboratory Results . Diagnostic Findings . PG Care Time/CCT Total # of Minutes Spent Total Time Spent with Patient: Total time spent is greater than 50% in coordination of care (as documented) at patient's floor/unit and/or counseling patient: Coding Level of Care Code 11677 SUB INP/OBS CARE 2/35MIN
--- NOTE | 2024-03-21 08:37 | Pain Management Consultation ---
Date of Consultation March 21, 2024 Assessment & Plan (1) Acute exacerbation of chronic low back pain: (2) Degenerative disc disease, lumbar: (3) Abnormal MRI, lumbar spine: (4) Leukocytosis: Plan 1. Patient presenting with acute on chronic low back pain with known history of lumbar degenerative disc disease and likely underlying lumbar facet syndrome with myofascial spasm which led to this admission. Imaging potentially suggestive of discitis with a corresponding leukocytosis upon admission which has resolved and antibiotics have been discontinued.. Due to similar MRI findings comparable to July 2023 at this time there is no plan for interventional radiology or open biopsy for ortho spine. There is no evidence of isolated myofascial spasm or myoneural trigger point on today's physical examination and therefore would defer trigger point injections at this time. Would recommend patient continue with scheduled tramadol and Flexeril upon this admission. Would recommend discharge on Flexeril with limited utilization of tramadol for as needed breakthrough pain. Patient will return to [facility] pain management upon discharge for ongoing care as there is a tentative plan in place to pursue medial branch blocks/ablation procedures. Patient was also encouraged to consider acupuncture versus dry needling for myofascial component of his pain in the outpatient setting. Service will sign off on patient at this time. Thank you for allowing us to precipitate in the care of Mr. Lomeli History of Present Illness Reason for Consultation: Acute on chronic low back pain Requesting Physician: Mildred Rosenberg PA-C Attending Physician: Tommy Morrow MD History of Present Illness Mr. Lomeli is a 33-year-old white male who was admitted on 03/16/2024 due to complaints of severe back pain. Patient has history of chronic low back pain which has recently been managed with lumbar facet joint injections through [facility] pain management most recently occurring on March 01. He had prior injections in October which provided significant relief of his typical pain. He had minimal relief from the injections completed in February. He then developed acute severe intractable low back pain which he described as spasm with limited ability to ambulate and move due to the severity of the pain which led to this admission. His pain is 100% axial in the lumbar region slightly right greater than left-sided without a radicular pattern. Patient reported ambulatory dysfunction primarily due to the axial back pain which would cause sharp pain with movement. Updated imaging upon this admission and an elevated WBC count with a neutrophilia expressed concerns about discitis. He was treated initially with IV antibiotics which have been discontinued over the past 24 hours. His most recent MRI is comparable to an MRI completed in July 2023 after review of imaging. Spine surgery is on board who is currently deferring open biopsy. Interventional radiology have also deferred biopsy at this time. Infectious disease has been involved to agree with discontinuation of his antibiotic therapy. The patient reports minimal pain over the past 24 hours with initiation of consistent use of tramadol and Flexeril. He is tolerating Flexeril with minimal sedation. He has been able to move out of bed and ambulate to the bathroom without exacerbation of pain and no limitation. He rates his current pain a 0-3/10. He slept without interference last evening. Patient has past medical history significant for chronic allergic rhinitis, generalized anxiety disorder, chronic marijuana utilization, chronic low back pain and degenerative disc disease. He denies weakness in the lower extremity, foot trouble falling. He denies bowel/bladder incontinence or saddle anesthesia. Patient has no further constitutional complaints. Plan of care discussed with Dr. Farhana Morales. Pain Assessment Full Body Front + Back: 2 1. Right lumbosacral junction 2. Left lumbosacral junction Pain scale - at its best (0-10): 0 Pain scale - at its worst (0-10): 3 Allergies Allergy/AdvReac Type Severity Reaction Status Date / Time Sulfa (Sulfonamide Allergy Intermediate Itching Verified 03/16/24 19:11 Antibiotics) baclofen AdvReac Severe Anxiety Verified 03/16/24 19:11 diclofenac AdvReac Severe Anxiety Verified 03/16/24 19:11 Home Medications Medication Instructions Recorded Confirmed Type acetaminophen 500 mg tablet 1,000 mg PO Q6H PRN Pain 03/16/24 03/16/24 History (Acetaminophen Extra Strength) celecoxib 100 mg capsule 100 mg PO BID PRN Pain 03/16/24 03/16/24 History Pain History Pain Intensity Pain scale - at its best (0-10): 0 Pain scale - at its worst (0-10): 3 Patient History Social History Smoking Status: Former smoker Smoking End Date: 2010; Hx Alcohol Use: No Hx Substance Use: Yes (marijuana for >15 years, has medical card per pt) Preferred Language: Mauritian Communication Ability: Effective Membership Advisor Required: No Beliefs That Will Affect Care: None Current Living Situation: Spouse Other Information That Helps Us Care for You: No Feels Safe at Home: Yes Safety Concerns: Feels Safe At This Time Assistive Devices: Cane Physical Exam 2 Physical Exam: General: Patient lying quietly in exam room in no acute distress. Speech and thought process appropriate. Mood and affect appropriate. Cognition intact. Patient accompanied by his . Head: Normocephalic and atraumatic. Eyes: Pupils equal round reactive to light. Neck: Supple without adenopathy and full range of motion. Abdomen: Soft and nondistended. No organomegaly. Bowel sounds active. Back/spine: Patient able to sit up without limitation and no increased pain or physical exam. Loss of lumbar lordosis. Nontender over the midline to palpation or percussion. He has no focal lumbar facet joint tenderness. He is nontender in the lumbar paravertebral or quadratus lumborum musculature. There is no appreciable spasm or myoneural trigger point on today's examination. He is nontender throughout the gluteal musculature. There is no spasm or myoneural trigger point. No limitation with range of motion. Lower extremities: Sensation intact distally. Strength testing was 5/5 with dorsiflexion, plantarflexion and EHL testing. No appreciable edema. Neurologic: Cranial nerves grossly intact. Ambulatory function not witnessed. Results (Pain Clinic) Diagnostic Review MRI Findings: [facility], [place] [phone] Magnetic Resonance Report Patient: RORO LOMELI Admit Date: 03/16/24 MR#: [id number] Address1: [address] [place] [address] Acct ID:[id number] Address2: Date: 1990 [facility] Zip: [place] [id number] Age: 33 Location: ED Sex: M Room/Bed: Att Phy: Diagnosis: BACK SPASMS Mayda Phy: Jose Lockett MD Service Date: 03/16/24 Fam Phy: Interpreting Phy: Esmer Avitia Phy: Ordering Phy: Jayy Currie PA-C cc: ~ ADDENDUM Addendum Report EXAM: MR lumbar spine wo/w con ADDENDUM: [facility] ER was called at [phone] at 07:20 PM [facility], 03/16/2024, and Lai, Kiel confirmed that they had received the results. Electronically signed by Esmer Mari 03-16-2024 8:01 PM ADDENDUM END EXAM: MR lumbar spine wo/w con CLINICAL HISTORY: steroid injection 03/07 pain worse afterwards 7.9 ml Gadavist TECHNIQUE: Different pulse sequences were performed in different planes for the lumbar spine without and with contrast. Images were sent through PACs for diagnostic interpretation.7.9 mL of Gadavist was injected intravenously without complications. COMPARISON: 12/24/[address] was reviewed FINDINGS: Preserved physiological lumbar lordosis. The scanned intervertebral discs show variable degrees of degeneration denoted by low signal intensity on T2 WI with a relative reduction of their heights. Marginal osteophytes are seen.Multiple radial, concentric, and transverse annular fissures are seen. Multiple Schmorl's nodes are seen at the vertebral end plates. Associating disc edema and wide zones of bone marrow edema at the L1 through L5 vertebrae with appreciable enhancement after Gd-DTPA injection. Findings suggest aseptic/septic spondylodiscitis. Detailed clinical, laboratory correlation and follow-up are recommended as appropriate. Maintained vertebral heights with intact vertebral bodies and neural arches. Level by Level analysis: T12-L1: There is no focal disc pathology, central canal stenosis, or neural foraminal stenosis. L1-L2: There is no focal disc pathology, central canal stenosis, or neural foraminal stenosis. L2-L3: There are 2.3 mm subarticular protrusions attenuating the subarticular recesses with impingement of the emerging L3 nerve roots. L3-L4: There are 2.5 mm subarticular protrusions attenuating the subarticular recesses with impingement of the emerging L4 nerve roots. Buckled ligamenta flava augment effects. L4-L5: There is a 2.4 mm annular bulge and 4.4 mm central herniation indenting the thecal sac, compromising the subarticular recesses and neural foramina with impingement of the emerging nerve roots. Buckled ligamenta flava and arthropathic facet joints augment effects. L5-S1: There is a 2.5 mm annular bulge and 4.2 mm central herniation indenting the thecal sac, compromising the subarticular recesses With mild bilateral neural foraminal stenosis with impingement of the emerging nerve roots. Buckled ligamenta flava and arthropathic facet joints augment effects. The lower dorsal spinal cord, conus medullaris, and cauda equina nerve roots are unremarkable. Paravertebral soft tissue is unremarkable. No developmental canal stenosis. IMPRESSION: 1. Spondylodegenerative lumbar disc disease. 2. Multiple Schmorl's nodes. 3. Modic I and II marrow changes are seen, with no other remarkable marrow changes. 4. Associating disc edema and wide zones of bone marrow edema at the L1 through L5 vertebrae with appreciable enhancement after Gd-DTPA injection. Findings suggest aseptic/septic spondylodiscitis. Detailed clinical, laboratory correlation and follow-up are recommended as appropriate. 5. L2-L3: There are 2.3 mm subarticular protrusions. 6. L3-L4: There are 2.5 mm subarticular protrusions. 7. L4-L5: There is a 2.4 mm annular bulge and 4.4 mm central herniation. 8. L5-S1: There is a 2.5 mm annular bulge and 4.2 mm central herniation. 9. Multilevel lumbar disc pathologies at the L2-L3, L3-L4, L4-L5 and L5-S1 levels with effects exerted upon the central spinal canal, subarticular recesses, and neural foramina with impingement of the emerging nerve roots. Buckled ligamenta flava and arthropathic facet joints augment effects. Electronically signed by Esmer Mari 03-16-2024 8:01 PM Dictated: 03/16/24 1842 Transcribed:
--- NOTE | 2024-03-21 09:56 | Discharge Summary ---
Date of Service March 21, 2024 Admission HPI Per Admitting Provider 33-year-old male with past medical history significant for chronic allergic rhinitis, plantar wart, degenerative disc disease, chronic back pain, general anxiety disorder, dermoid cyst, presents with severe back pain. Patient states having ongoing back pain for about a year. In October he had a steroid shot and it did seem to help. In January again he started to have low back pain and he had another steroid shot on March 01. But this time it did not help much. He is again having a lot of back pain. Not able to ambulate because of severe pain. Denies any bowel or bladder incontinence. Denies any numbness or weakness in the legs. Last night he felt hot and had episode of vomiting. After vomiting he felt better. Denies any headache. No dizziness. Currently no runny nose or sore throat. No cough. No chest pain or shortness of. Appetite is okay. No abdominal pain. Normal bowel and bladder movements. Hemodynamics are okay. Past medical history. As mentioned above Past surgical history. Lumbar spinal injection Family history. Quit smoking 1999. Medical marijuana as per [facility]. Alcohol occasional. Social history. Maternal grandfather had ALS. Paternal grandfather had colon cancer. Paternal grandmother had bipolar disorder. Lung cancer. Father has hypertension. Mother has hypertension. Admission Exam Per Admitting Provider General- Not in distress Head- atraumatic Eyes- PERRL. ENT- oropharynx clear Neck- supple, no JVD. Lungs- clear to auscultation no wheezing or crackles Heart- regular rate and rhythm; no murmur, no gallop. Abdomen- normal bowel sounds, soft, nontender, no distension Extremities- no pretibial edema, no erythema seen Neuro- alert, oriented ; PERRL, no facial palsy; no dysarthria; moves extremities Musculoskeletal right leg SLR test mildly positive Principal Diagnosis degenerative disc disease/lower back pain Discharge Exam Neuro: AAOx4, PERRLA, no aphagia, memory changes, CNII-XII grossly intact HEENT: head normocephalic, moist mucus membranes CV: S1/S2, (-) M/G/R, (-) edema, cap refill < 3 seconds Resp: Lungs CTA in all mills. On RA GI: Abdomen S/NT/ND, Ax4 bowel sounds, (-) CVA tenderness Musculoskeletal: 5/5 B/L UE strength, 5/5 B/L LE strength. No gait disturbance Skin: (-) rashes , (-) erythema. Psych: euthymic mood Discharge Data Allergies Allergy/AdvReac Type Severity Reaction Status Date / Time Sulfa (Sulfonamide Allergy Intermediate Itching Verified 03/16/24 19:11 Antibiotics) baclofen AdvReac Severe Anxiety Verified 03/16/24 19:11 diclofenac AdvReac Severe Anxiety Verified 03/16/24 19:11 Consultations 03/16/24 21:05 ED Decision to Admit Stat 03/17/24 08:00 Consult Orthopedic Spine Surgery Routine 03/19/24 07:36 Consult Infectious Diseases Routine 03/20/24 10:26 Consult Pain Management Routine Ordered Studies 03/16/24 17:33 MR lumbar spine wo/w con Stat Hospital Course (1) Severe low back pain: This is a 33 yr old M who has a significant PMH of chronic back pain, chronic allergic rhinitis, JUN who presents to ED 2/2 severe low back pain. A Lumbar spine MRI was performed with the following results: 1. Spondylodegenerative lumbar disc disease. 2. Multiple Schmorl's nodes. 3. Modic I and II marrow changes are seen, with no other remarkable marrow changes. 4. Associating disc edema and wide zones of bone marrow edema at the L1 through L5 vertebrae with appreciable enhancement after Gd-DTPA injection. Findings suggest aseptic/septic spondylodiscitis. Detailed clinical, laboratory correlation and follow-up are recommended as appropriate. 5. L2-L3: There are 2.3 mm subarticular protrusions. 6. L3-L4: There are 2.5 mm subarticular protrusions. . L4-L5: There is a 2.4 mm annular bulge and 4.4 mm central herniation. 8. L5-S1: There is a 2.5 mm annular bulge and 4.2 mm central herniation. 9. Multilevel lumbar disc pathologies at the L2-L3, L3-L4, L4-L5 and L5-S1 levels with effects exerted upon the central spinal canal, subarticular recesses, and neural foramina with impingement of the emerging nerve roots. Buckled ligamenta flava and arthropathic facet joints augment effects. Pt initially placed on empiric Vanco/Rocephin, but after being seen by [facility] and reviewing images, thought that there was no infection rather more degeneration around the schmorl nodes. Pain management evaluated the patient and recommended continuation of Tramadol and Flexeril and did not recommend a trigger point injection rather continued evaluated with pain management as an outpatient for possible ablation. Patient was discharged with a short duration of Flexeril and Tramadol with an outpatient follow up with his PCP on 03/28. I spent a total of 50 minutes reviewing notes, outpatient records, labs, medication, coordinating, documenting and providing care for this patient excluding time spent in the performance of separately billed services. Total Time Total Time Spent Total Time Spent (In Minutes): I spent a total of 52 minutes coordinating, documenting, and providing care for this patient excluding time spent in the performance of separately billed services. All of the aforementioned completed while collaborating with the assigned attending physician for a full treatment plan. Please see their addendum for further details. Discharge Plan Discharge Items Patient Disposition: Home - Self-Care Reason For Visit: BACK PAIN/DISCITIS? Discharge Diagnosis: chronic back pain Condition on Discharge: Good Activity: Resume your previous activity Activity Comment: as tolerated Driving/Machine Use: Avoid driving heavy machinery including a car when taking Tramadol (Ultram) Weightbearing: Full weightbearing Non-emergency contact: Primary Care Provider Call non-emergency contact if: you have any medication questions, your symptoms worsen, your pain is not controlled and your temperature is above 101.5 Follow-up/Referrals: Jose Lockett MD [Primary Care Provider] - 03/28/24 11:00 am ([facility] ([facility]) ) Diet: Regular Addtl Attending Provider Instructions: Ben Arcos presented to the [facility] with chronic lower back pain and a known history of lumbar degenerative disc disease. Imaging that was performed including a lumbar spine MRI indicating Spondylodegenerative lumbar disc disease and multiple Schmorl's nodes. There initially was concerns for discitis and you were started on IV antibiotics. You were evaluated by Orthopedics service who stated that this is likely more degenerative changes vs infectious. You were started on a few different medications for pain relief and were evaluated by pain management. Based on their examination, they would not recommend trigger point injections at this time. As we discussed, it seems like a tramadol and Flexeril combination has worked well for you. As you have been evaluated by [facility], we recommend that you continue to follow up with them as there has been tentative discussion regarding a medical branch block/ablation. MEDICATION CHANGES: You will be going home with the following TWO new medications 1. Flexeril 10 mg by mouth every 8 hours as needed for pain 2. Tramadol 50 mg by mouth every 6 hours as needed for pain. 3. Continue to take a stool softener Senna/Docusate one tablet twice daily until you have consistent bowel movements. Increase fiber in your diet to stimulate bowel movements as well. RECOMMENDATIONS FOR FOLLOW-UP: 1. PCP Dr. LOCKETT Wednesday 03/28 @ 11:00 AM at the following location: [address] (by [facility]) Please discuss with Dr. Lockett regarding arranging an appointment with pain management for continued care. The hospital bed that you requested has been approved through your insurance and will be delivered today on 03/21. OTHER INSTRUCTIONS: Seek medical attention if you have: * temperature above 101 * chest pain or trouble breathing * abdominal pain, nausea, vomiting * diarrhea, dark stools or bloody stools * any unanswered questions or concerns Call 911 if symptoms are severe. Please take good care of yourself. It has been a pleasure taking care of you. Please take care of yourself. If you have any questions regarding your recent hospitalization please contact [facility] and request [facility] @ [phone]. Patient was also encouraged to consider acupuncture versus dry needling for myofascial component of his pain in the outpatient setting. Pending Studies at Discharge: No Stand-Alone Forms: My [facility], Smoking Cessation Medications and DC Order Prescriptions: New cyclobenzaprine 10 mg Tablet 10 mg PO Q8H PRN (Reason: pain) 7 Days Qty: 21 0RF sennosides-docusate sodium [Senokot-S] 8.6-50 mg Tablet 1 tab PO BID 7 Days Qty: 14 0RF tramadol 50 mg tablet 50 mg PO Q6H PRN (Reason: pain) Qty: 30 0RF Continued acetaminophen [Acetaminophen Extra Strength] 500 mg Tablet 1,000 mg PO Q6H MDD 3000 PRN (Reason: Pain) Discontinued celecoxib 100 mg capsule 100 mg PO BID PRN (Reason: Pain) Discharge Orders: Discharge Order (Routine); Ordered 03/21/24 Ordered By: Izabella Amos/Other Patient Handouts: Chronic Pain Therapies Admission Data Admit Date/Time: 03/16/24 22:21 Attending Provider: Tommy Morrow Admit Provider: Avelino Cartwright Primary Care Provider: Jose Lockett Other Providers: Malick Baron; Avelino Cartwright; Brett Boo; Jame Ho; Evgeny Brizuela I.; Saroj Hewitt II; Elizabet Watson; Jose Christian; Bob Powers; Harjit Walker; Taye Herrera Other Interventions: Discharge Summary Assessment (RN) Last Done: 03/21/24 13:20 Supervising Physician Co-Signing Physician Notes Attending Addendum: Case reviewed with the advanced practitioner. I have personally performed a history and physical examination on the patient. I have reviewed the advanced practitioner's documentation on the date of service referenced in note, and I agree with, and take responsibility for the plan of care. please refer to her notes for full details patient seen and examined, records reviewed by myself as well Tommy Morrow MD
[2024-03-21 13:21] VITALS: BP 140/83; PULSE 100
== END 2024-03-21 13:59 | disposition home or self-care (01) | DRG 552 ==
LOC: ED 17:03 → 3N 22:21 → SUATTDRO 22:21 → 3N 23:44